=== PATIENT | male | born 1955 | race Caucasian/White ===

== ENCOUNTER 2019-07-22 23:16 | Emergency (ER) | payer MEDICAID, OTHER ==
[~2019-07-22] VITALS: Ht 180.3 cm; Wt 100.0 kg
[~2019-07-22 23:16] MED LIST: AMLO5TAB16 PO; COLC0.6T67 PO; FAMO-128 PO; FINA5TAB11 PO; FLO0.4C PO; INDO50CA96 PO; METO25TA6 PO
[2019-07-23] MEDS ORDERED: ketorolac tromethamine 15mg/ml inj. IV ONE
[2019-07-23] MEDS ORDERED: iohexol 300mg/ml 100ml inj. ONE (00:08)
[2019-07-23 00:30] LABS: BASOPHILS % (AUTO) 0.8 % (0-1); EOSINOPHILS # (AUTO) 0.3 X10'3 (0-0.9); HEMATOCRIT 48.4 % (42.0-52.0); HEMOGLOBIN 16.4 g/dl (14.0-17.9); LYMPHOCYTES # (AUTO) 1.6 X10'3 (1.1-4.8); MEAN CORPUSCULAR HEMOGLOBIN 29.8 PG (27.0-31.0); MEAN CORPUSCULAR HGB CONC 33.8 g/dL (33.0-36.5); MEAN PLATELET VOLUME 8.7 FL (7.4-10.4); MONOCYTES # (AUTO) 0.8 X10'3 (0-0.9); NEUTROPHILS # (AUTO) 3.9 X10'3 (1.8-7.7); NEUTROPHILS % (AUTO) 58.2 % (42-75); PLATELET COUNT 176 X10'3 (140-440); RED CELL DISTRIBUTION WIDTH 16.8 % (11.5-14.5); WHITE BLOOD COUNT 6.6 X10'3 (4.5-11.0)
[2019-07-23 00:42] LABS: ALANINE AMINOTRANSFERASE 26 U/L (12-78); ALBUMIN 3.8 G/DL (3.4-5.0); ALBUMIN/GLOBULIN RATIO 1.1 (1.1-1.5); ALKALINE PHOSPHATASE 70 IU/L (46-116); ANION GAP 9 (8-16); ASPARTATE AMINO TRANSFERASE 18 U/L (10-37); BILIRUBIN,TOTAL 0.5 MG/DL (0.1-1.0); BLOOD UREA NITROGEN 28 MG/DL (7-18); BUN/CREATININE RATIO 16.1 (5.4-32.0); CALCIUM 8.4 MG/DL (8.5-10.1); CHLORIDE 107 MMOL/L (99-107); CREATININE 1.74 MG/DL (0.60-1.10); GLUCOSE 99 MG/DL (70-104); POTASSIUM 3.8 MMOL/L (3.5-5.1); SODIUM 142 MMOL/L (135-145); TOTAL CARBON DIOXIDE 25.6 MMOL/L (24-32); TOTAL PROTEIN 7.2 G/DL (6.4-8.2); eGFR 40 ML/MIN
[2019-07-23 02:06] VITALS: BP 161/100
== END 2019-07-23 02:12 | disposition home or self-care (01) ==
LOC: ER 23:17
DX: K43.9 Ventral hernia without obstruction or gangrene (principal); I10 Essential (primary) hypertension; M10.9 Gout, unspecified; F17.200 Nicotine dependence, unspecified, uncomplicated; Z86.73 Personal history of transient ischemic attack (TIA), and cerebral infarction without residual deficits; Z98.890 Other specified postprocedural states; Z59.0 Homelessness; Z56.0 Unemployment, unspecified; Z88.8 Allergy status to other drugs, medicaments and biological substances; Z79.899 Other long term (current) drug therapy
CPT/HCPCS: 36415; 74176; 80053; 85025; 96374; 99284; J1885; Q9967

== ENCOUNTER 2019-08-14 14:43 | Inpatient (IN) | payer MEDICAID, OTHER ==
[~2019-08-14] VITALS: Ht 177.8 cm; Wt 95.5 kg
[2019-08-14 15:21] LABS: BASOPHILS # (AUTO) 0.1 X10'3 (0-0.2); BASOPHILS % (AUTO) 0.6 % (0-1); EOSINOPHILS # (AUTO) 0.2 X10'3 (0-0.9); EOSINOPHILS % (AUTO) 2.4 % (0-6); HEMATOCRIT 43.3 % (42.0-52.0); HEMOGLOBIN 14.7 g/dl (14.0-17.9); LYMPHOCYTES # (AUTO) 1.4 X10'3 (1.1-4.8); LYMPHOCYTES % (AUTO) 17.6 % (21-51); MEAN CORPUSCULAR HEMOGLOBIN 30.2 PG (27.0-31.0); MEAN CORPUSCULAR VOLUME 88.9 FL (78-98); MEAN PLATELET VOLUME 7.8 FL (7.4-10.4); MONOCYTES # (AUTO) 0.9 X10'3 (0-0.9); MONOCYTES % (AUTO) 10.9 % (2-12); NEUTROPHILS # (AUTO) 5.6 X10'3 (1.8-7.7); NEUTROPHILS % (AUTO) 68.5 % (42-75); PLATELET COUNT 234 X10'3 (140-440); RED BLOOD COUNT 4.88 X10'6 (4.70-6.10); RED CELL DISTRIBUTION WIDTH 16.9 % (11.5-14.5); WHITE BLOOD COUNT 8.1 X10'3 (4.5-11.0)
[2019-08-14 15:32] LABS: PARTIAL THROMBOPLASTIN TIME 30 SECONDS (22-32)
[2019-08-14 15:34] LABS: ALANINE AMINOTRANSFERASE 26 U/L (12-78); ALBUMIN 3.2 G/DL (3.4-5.0); ALBUMIN/GLOBULIN RATIO 0.8 (1.1-1.5); ALKALINE PHOSPHATASE 87 IU/L (46-116); ANION GAP 11 (8-16); ASPARTATE AMINO TRANSFERASE 14 U/L (10-37); BILIRUBIN,TOTAL 0.3 MG/DL (0.1-1.0); BLOOD UREA NITROGEN 21 MG/DL (7-18); BUN/CREATININE RATIO 14.8 (5.4-32.0); CALCIUM 8.4 MG/DL (8.5-10.1); CHLORIDE 103 MMOL/L (99-107); CREATININE 1.42 MG/DL (0.60-1.10); GLUCOSE 106 MG/DL (70-104); POTASSIUM 3.5 MMOL/L (3.5-5.1); SODIUM 139 MMOL/L (135-145); TOTAL PROTEIN 7.4 G/DL (6.4-8.2); eGFR 51 ML/MIN
[2019-08-14 15:37] LABS: TROPONIN I < 0.04 NG/ML (0.0-0.05)
[2019-08-14] MEDS ORDERED: dextrose 50%-water 50ml dispensing syringe IV ONE ×2 (17:34→17:35)
[2019-08-14] MEDS ORDERED: morphine 4 MG/ML inj SYRINge IV ONE (19:05)
[2019-08-14] MEDS ORDERED: ipratropium/albuterol 3ml nebule NEB ONE (19:05)
[2019-08-14] MEDS ORDERED: ondansetron/PF 4mg/2ml inj IV ONE (19:05)
--- NOTE | 2019-08-14 19:10 | NUR ---
dr camilo updated that patient in sever pain to his l hip . 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 states he has been in his wc more lately and thinks maybe this is why. Pt very wheezy and rr 26, o2 on ra 96%. bp 183/120. MD ordering svn, msiv and zofran. acc now 83
--- NOTE | 2019-08-14 19:19 | NUR ---
rt at bedside for svn. pt given msiv 4 mg and zofran 4 mg iv. stroke rn, ever, at bedside. Tele Neuro Cart in front of pt now. Pt reprots this numbness and tingling came on suddenly at 0730 this am and has continued all day and had not worsened or improved. Passed swallow eval, swallowing thin liquids with no issues.
[2019-08-14] MEDS ORDERED: aspirin 325mg tablet PO ONE (19:45)
[2019-08-14] MEDS ORDERED: magnesium 2GM in 50ml NS 50 ML IV PRN (20:05)
[2019-08-14] MEDS ORDERED: magnesium hydroxide 30ml (MOM) UD suspension PO PRN (20:05)
[2019-08-14] MEDS ORDERED: acetaminophen 325mg tablet PO PRN ×2 (20:05)
[2019-08-14] MEDS ORDERED: ondansetron/PF 4mg/2ml inj IV PRN (20:05)
[2019-08-14] MEDS ORDERED: potassium CL 10mEq/100ml bag 100 ML IV PRN ×2 (20:05)
[2019-08-14] MEDS ORDERED: magnesium Cl slow-release 64mg tablet PO PRN (20:05)
[2019-08-14] MEDS ORDERED: magnesium 4gm in 100ml NS 100 ML IV PRN (20:05)
[2019-08-14] MEDS ORDERED: potassium Cl 20 mEq SR tablet PO PRN ×2 (20:05)
[2019-08-14] MEDS ORDERED: NO HOME MEDS (21:02)
--- NOTE | 2019-08-14 21:07 | NUR ---
dr. mcdermott called: 1. pt with severe pain to his left hip, only tylenol ordered, 2. htn continues 189/120. verbal received for msiv 2 mg prn, amoldapinie 5 mg x1 now, hydralazine prn.
[2019-08-14] MEDS ORDERED: amLODIPine 5mg tablet PO ONE (21:15)
[2019-08-14] MEDS ORDERED: hydrALAZINE 20mg/ml inj. IV PRN (21:15)
--- NOTE | 2019-08-14 21:40 | NUR ---
awaiting ipa, given amlodapint 5 mg tab x 1. current pb 177/109. reports the tingling/numbness to the right face continues.
[2019-08-14] MEDS: morphine 2 MG/ML inj. syringe IV PRN (22:32)
[2019-08-14 23:00] VITALS: BP 150/87
[2019-08-14] MEDS ORDERED: HYDROcodone/acetaminophen 5mg/325mg tablet PO PRN (23:50)
--- NOTE | 2019-08-14 23:58 | NUR ---
performed neuro assessment. Noted weakness in L hand application support analyst and patient was barely able to lift either leg off the bed. still c/o tingling and numbness in L side. Addendum: 08/15/19 at 0001 by Joselin Baltazar RN R side numb and tingling. Previous stroke left R side weak. L hand was weaker with biomechanical engineer
[2019-08-15] VITALS (9 sets, daily range): BP systolic 142–167; BP diastolic 84–105
--- NOTE | 2019-08-15 01:03 | NUR ---
No need for an MRI/MRA of brain per physician.
[2019-08-15 03:15] LABS: BASOPHILS # (AUTO) 0.1 X10'3 (0-0.2); BASOPHILS % (AUTO) 0.7 % (0-1); EOSINOPHILS # (AUTO) 0.2 X10'3 (0-0.9); HEMATOCRIT 42.2 % (42.0-52.0); HEMOGLOBIN 14.5 g/dl (14.0-17.9); LYMPHOCYTES # (AUTO) 1.1 X10'3 (1.1-4.8); LYMPHOCYTES % (AUTO) 15.5 % (21-51); MEAN CORPUSCULAR HEMOGLOBIN 30.1 PG (27.0-31.0); MEAN CORPUSCULAR HGB CONC 34.3 g/dL (33.0-36.5); MEAN CORPUSCULAR VOLUME 87.8 FL (78-98); MEAN PLATELET VOLUME 7.8 FL (7.4-10.4); MONOCYTES % (AUTO) 14.4 % (2-12); NEUTROPHILS # (AUTO) 4.8 X10'3 (1.8-7.7); NEUTROPHILS % (AUTO) 66.4 % (42-75); PLATELET COUNT 205 X10'3 (140-440); RED BLOOD COUNT 4.81 X10'6 (4.70-6.10); RED CELL DISTRIBUTION WIDTH 16.5 % (11.5-14.5); WHITE BLOOD COUNT 7.3 X10'3 (4.5-11.0)
[2019-08-15 03:33] LABS: ALBUMIN 2.8 G/DL (3.4-5.0); ANION GAP 8 (8-16); BLOOD UREA NITROGEN 21 MG/DL (7-18); CALCIUM 8.2 MG/DL (8.5-10.1); CHLORIDE 106 MMOL/L (99-107); CHOL/HDL RATIO 3.1 (0.00-4.99); CHOLESTEROL 112 MG/DL (0-200); GLUCOSE 119 MG/DL (70-104); HDL CHOLESTEROL 36 MG/DL (35-60); LDL CHOLESTEROL 66 MG/DL (50-100); MAGNESIUM 1.8 MG/DL (1.5-2.4); POTASSIUM 3.8 MMOL/L (3.5-5.1); SODIUM 141 MMOL/L (135-145); TRIGLYCERIDES 89 MG/DL (20-135); TROPONIN I < 0.04 NG/ML (0.0-0.05); eGFR 47 ML/MIN
[2019-08-15] MEDS: amLODIPine 5mg tablet PO SCH (07:56)
[2019-08-15] MEDS: enoxaparin 40mg/0.4ml syringe SQ SCH (07:56)
[2019-08-15] MEDS: morphine 2 MG/ML inj. syringe IV PRN ×2 (07:58→11:34)
[2019-08-15] MEDS: K and/or MAG REPLACEMENT MC SCH (08:00)
[2019-08-15] MEDS: aspirin 325mg tablet, delayed-release (Ecotrin) PO SCH (08:03)
[2019-08-15] MEDS: atorvastatin 20mg tablet PO SCH (08:03)
--- NOTE | 2019-08-15 16:47 | NUR ---
Malnutrition consult. Per documented weight history patient is at his UBW. He does have bilateral foot non-pitting 2+ mild edema, severe weakness. Patient is on a heart healthy diet, great appetite and eating 100% of meals. No malnutrition at this time. Will continue to follow. Addendum: 08/15/19 at [address] Amended: Links added.
--- NOTE | 2019-08-15 18:15 | NUR ---
Problems reprioritized. Patient report given, questions answered & plan of care reviewed with ENEDINA Chin .
--- NOTE | 2019-08-15 18:30 | NUR ---
Patient in room ORTHO 4007. I have received report from ENEDINA Wood and had the opportunity to ask questions and assume patient care.
[2019-08-15] MEDS: tamsulosin 0.4mg capsule PO SCH (22:01)
[2019-08-16] VITALS (9 sets, daily range): BP systolic 136–170; BP diastolic 77–102
[2019-08-16] MEDS: morphine 2 MG/ML inj. syringe IV PRN ×5 (02:51→21:06)
[2019-08-16 04:22] LABS: COLOR,URINE YELLOW (Yellow); GLUCOSE, URINE NEGATIVE (Neg); KETONES,URINE NEGATIVE (Neg); LEUKOCYTE ESTERASE ,URINE MODERATE (Neg); NITRITES, URINE NEGATIVE (Neg); OCCULT BLOOD,URINE SMALL (Neg); PH,URINE 6.5 (4.8-8.0); PROTEIN,URINE TRACE mg/dl (Neg); UROBILINOGEN,URINE 0.2 E.U/dL (0.2-1.0)
[2019-08-16 04:36] LABS: CLARITY,URINE SLIGHTLY CLOUDY (Clear); UA COLLECTION TYPE NON-SPECIFIED
[2019-08-16 04:38] LABS: BACTERIA,URINE FEW /HPF (Neg); SQUAMOUS EPITHELIAL CELL,UR FEW /LPF (FEW); WBC CLUMPS,URINE FEW /HPF (NEGATIVE)
[2019-08-16 06:27] LABS: ALBUMIN 2.8 G/DL (3.4-5.0); ANION GAP 9 (8-16); BLOOD UREA NITROGEN 20 MG/DL (7-18); BUN/CREATININE RATIO 14.4 (5.4-32.0); CALCIUM 8.4 MG/DL (8.5-10.1); CHLORIDE 104 MMOL/L (99-107); CREATININE 1.39 MG/DL (0.60-1.10); GLUCOSE 102 MG/DL (70-104); MAGNESIUM 1.8 MG/DL (1.5-2.4); POTASSIUM 4.2 MMOL/L (3.5-5.1); SODIUM 140 MMOL/L (135-145); TOTAL CARBON DIOXIDE 27.2 MMOL/L (24-32); eGFR 52 ML/MIN
[2019-08-16 06:31] LABS: BASOPHILS % (AUTO) 0.4 % (0-1); EOSINOPHILS # (AUTO) 0.2 X10'3 (0-0.9); EOSINOPHILS % (AUTO) 2.5 % (0-6); HEMATOCRIT 43.6 % (42.0-52.0); HEMOGLOBIN 14.8 g/dl (14.0-17.9); LYMPHOCYTES % (AUTO) 13.6 % (21-51); MEAN CORPUSCULAR HEMOGLOBIN 30.1 PG (27.0-31.0); MEAN CORPUSCULAR HGB CONC 33.8 g/dL (33.0-36.5); MEAN PLATELET VOLUME 8.4 FL (7.4-10.4); MONOCYTES # (AUTO) 0.9 X10'3 (0-0.9); MONOCYTES % (AUTO) 12.1 % (2-12); NEUTROPHILS # (AUTO) 5.3 X10'3 (1.8-7.7); NEUTROPHILS % (AUTO) 71.4 % (42-75); PLATELET COUNT 209 X10'3 (140-440); RED CELL DISTRIBUTION WIDTH 16.4 % (11.5-14.5); WHITE BLOOD COUNT 7.5 X10'3 (4.5-11.0)
--- NOTE | 2019-08-16 06:33 | NUR ---
Patient in room ORTHO 4007. I have received report from Elsy MCCONNELL and had the opportunity to ask questions and assume patient care.
--- NOTE | 2019-08-16 06:34 | NUR ---
Problems reprioritized. Patient report given, questions answered & plan of care reviewed with ENEDINA Montalvo.
--- NOTE | 2019-08-16 06:36 | NUR ---
Patient in room ORTHO 4007. I have received report from ENEDINA Urrutia and had the opportunity to ask questions and assume patient care.
[2019-08-16] MEDS: aspirin 325mg tablet, delayed-release (Ecotrin) PO SCH (07:46)
[2019-08-16] MEDS: atorvastatin 20mg tablet PO SCH (07:46)
[2019-08-16] MEDS: amLODIPine 5mg tablet PO SCH (07:46)
[2019-08-16] MEDS: enoxaparin 40mg/0.4ml syringe SQ SCH (07:47)
[2019-08-16] MEDS: K and/or MAG REPLACEMENT MC SCH (07:47)
[2019-08-16] MEDS: HYDROcodone/acetaminophen 10/325mg tab PO PRN (10:45)
[2019-08-16] MEDS: mag hydrox/Alum hydrox/simeth 30ml oral suspension PO PRN (10:45)
[2019-08-16] MEDS: allopurinol 100mg tablet PO SCH (13:03)
--- NOTE | 2019-08-16 18:15 | NUR ---
Patient in room ORTHO 4007. I have received report from ENEDINA Montalvo and had the opportunity to ask questions and assume patient care.
--- NOTE | 2019-08-16 18:18 | NUR ---
Problems reprioritized. Patient report given, questions answered & plan of care reviewed with Elsy MCCONNELL.
[2019-08-16] MEDS: tamsulosin 0.4mg capsule PO SCH (19:42)
[2019-08-17] VITALS (7 sets, daily range): BP systolic 138–177; BP diastolic 80–97
[2019-08-17] MEDS: morphine 2 MG/ML inj. syringe IV PRN ×4 (05:17→22:32)
--- NOTE | 2019-08-17 06:10 | NUR ---
Patient in room ORTHO 4007. I have received report from and had the opportunity to ask questions and assume patient care ENEDINA Chin.
[2019-08-17 06:20] LABS: ALBUMIN 2.7 G/DL (3.4-5.0); ANION GAP 6 (8-16); BLOOD UREA NITROGEN 25 MG/DL (7-18); BUN/CREATININE RATIO 19.1 (5.4-32.0); CALCIUM 8.3 MG/DL (8.5-10.1); CHLORIDE 103 MMOL/L (99-107); CREATININE 1.31 MG/DL (0.60-1.10); GLUCOSE 101 MG/DL (70-104); POTASSIUM 4.4 MMOL/L (3.5-5.1); SODIUM 138 MMOL/L (135-145); TOTAL CARBON DIOXIDE 28.6 MMOL/L (24-32); eGFR 55 ML/MIN
--- NOTE | 2019-08-17 06:42 | NUR ---
Problems reprioritized. Patient report given, questions answered & plan of care reviewed with ENEDINA Montgomery.
[2019-08-17 06:45] LABS: BASOPHILS % (AUTO) 0.4 % (0-1); EOSINOPHILS # (AUTO) 0.2 X10'3 (0-0.9); EOSINOPHILS % (AUTO) 2.8 % (0-6); HEMATOCRIT 41.2 % (42.0-52.0); HEMOGLOBIN 14.1 g/dl (14.0-17.9); LYMPHOCYTES % (AUTO) 15.5 % (21-51); MEAN CORPUSCULAR HEMOGLOBIN 30.6 PG (27.0-31.0); MEAN CORPUSCULAR HGB CONC 34.2 g/dL (33.0-36.5); MEAN CORPUSCULAR VOLUME 89.3 FL (78-98); MEAN PLATELET VOLUME 8.6 FL (7.4-10.4); MONOCYTES # (AUTO) 0.8 X10'3 (0-0.9); MONOCYTES % (AUTO) 11.9 % (2-12); NEUTROPHILS # (AUTO) 4.5 X10'3 (1.8-7.7); NEUTROPHILS % (AUTO) 69.4 % (42-75); PLATELET COUNT 223 X10'3 (140-440); RED BLOOD COUNT 4.61 X10'6 (4.70-6.10); RED CELL DISTRIBUTION WIDTH 16.7 % (11.5-14.5); WHITE BLOOD COUNT 6.4 X10'3 (4.5-11.0)
[2019-08-17] MEDS: K and/or MAG REPLACEMENT MC SCH (08:00)
[2019-08-17] MEDS: atorvastatin 20mg tablet PO SCH (08:17)
[2019-08-17] MEDS: allopurinol 100mg tablet PO SCH (08:17)
[2019-08-17] MEDS: amLODIPine 5mg tablet PO SCH (08:17)
[2019-08-17] MEDS: aspirin 325mg tablet, delayed-release (Ecotrin) PO SCH (08:17)
[2019-08-17] MEDS: enoxaparin 40mg/0.4ml syringe SQ SCH (08:18)
[2019-08-17] MEDS ORDERED: allopurinol 100mg tablet PO SCH (08:30)
[2019-08-17] MEDS ORDERED: ATOR20TA66 PO (11:16)
[2019-08-17] MEDS ORDERED: NOR5T PO (11:16)
[2019-08-17] MEDS ORDERED: tamsulosin capsule PO (11:16)
[2019-08-17] MEDS ORDERED: ASPI81TA52 PO (11:16)
--- NOTE | 2019-08-17 14:08 | NUR ---
Dr Andres page: PAGER ID: [phone] MESSAGE: [phone] Everette Whitten: pt unable to stand or transfer bed to or WC to toilet/bed. x2 person mid-max assist, intolerable pain. unsafe DC. please advise. Valentina [phone]
--- NOTE | 2019-08-17 18:00 | NUR ---
Problems reprioritized. Patient report given, questions answered & plan of care reviewed with ENEDINA Rodriguez.
[2019-08-17] MEDS: tamsulosin 0.4mg capsule PO SCH (20:28)
[2019-08-17] MEDS: HYDROcodone/acetaminophen 10/325mg tab PO PRN (20:30)
[2019-08-17] MEDS: mag hydrox/Alum hydrox/simeth 30ml oral suspension PO PRN (22:32)
[2019-08-18] VITALS (7 sets, daily range): BP systolic 145–161; BP diastolic 84–99
[2019-08-18] MEDS: morphine 2 MG/ML inj. syringe IV PRN ×3 (04:01→19:00)
--- NOTE | 2019-08-18 04:06 | NUR ---
Pt lung sounds are sonorous, slightly wheezing. The pt will not participate in DB&C. Educated him on need to cough to clear lungs to discourage pneumonia. Pt stated, " I hope I do get pneumonia so I can and end this." Pt is scheduled for [employer] this am. Pt is lying flat and snoring, was lying on left side earlier. Pt is long time smoker and states that he quit smoking about 7 days ago. lung sounds are r/t possible smoker cough?
--- NOTE | 2019-08-18 06:15 | NUR ---
Patient in room ORTHO 4007. I have received report from and had the opportunity to ask questions and assume patient care ENEDINA Rodriguez.
--- NOTE | 2019-08-18 06:24 | NUR ---
report given to rowdy Montgomery.
[2019-08-18 06:27] LABS: BASOPHILS % (AUTO) 0.5 % (0-1); EOSINOPHILS # (AUTO) 0.2 X10'3 (0-0.9); EOSINOPHILS % (AUTO) 2.9 % (0-6); HEMOGLOBIN 13.7 g/dl (14.0-17.9); LYMPHOCYTES % (AUTO) 14.8 % (21-51); MEAN CORPUSCULAR HEMOGLOBIN 30.1 PG (27.0-31.0); MEAN CORPUSCULAR HGB CONC 34.2 g/dL (33.0-36.5); MEAN PLATELET VOLUME 8.4 FL (7.4-10.4); MONOCYTES % (AUTO) 14.7 % (2-12); NEUTROPHILS # (AUTO) 4.7 X10'3 (1.8-7.7); NEUTROPHILS % (AUTO) 67.1 % (42-75); PLATELET COUNT 227 X10'3 (140-440); RED BLOOD COUNT 4.55 X10'6 (4.70-6.10); RED CELL DISTRIBUTION WIDTH 16.5 % (11.5-14.5)
[2019-08-18 06:31] LABS: ALBUMIN 2.6 G/DL (3.4-5.0); ANION GAP 7 (8-16); BLOOD UREA NITROGEN 22 MG/DL (7-18); BUN/CREATININE RATIO 15.3 (5.4-32.0); CALCIUM 9.2 MG/DL (8.5-10.1); CHLORIDE 102 MMOL/L (99-107); CREATININE 1.44 MG/DL (0.60-1.10); GLUCOSE 107 MG/DL (70-104); MAGNESIUM 2.1 MG/DL (1.5-2.4); POTASSIUM 4.1 MMOL/L (3.5-5.1); SODIUM 136 MMOL/L (135-145); TOTAL CARBON DIOXIDE 27.4 MMOL/L (24-32); eGFR 50 ML/MIN
[2019-08-18] MEDS: K and/or MAG REPLACEMENT MC SCH (08:00)
[2019-08-18] MEDS: aspirin 325mg tablet, delayed-release (Ecotrin) PO SCH (08:00)
[2019-08-18] MEDS: amLODIPine 5mg tablet PO SCH (09:09)
[2019-08-18] MEDS: atorvastatin 20mg tablet PO SCH (09:09)
[2019-08-18] MEDS: allopurinol 100mg tablet PO SCH (09:10)
[2019-08-18] MEDS: enoxaparin 40mg/0.4ml syringe SQ SCH (09:14)
--- NOTE | 2019-08-18 12:21 | NUR ---
Student Medication Administration:For this medication-pass time frame [id number], all medications were reviewed, administered and documented per hospital policy by Stormy Marie. Student documentation:I have reviewed and agree with all interventions, assessments performed and documented by Stormy Marie.
--- NOTE | 2019-08-18 14:21 | NUR ---
Dr Andres: PAGER ID: [phone] MESSAGE: [phone] Everette Whitten: Used walker to transfer WC to bed, states will not DC until tomorrow at 0900, because he needs rest. requests a walker & Percocet order at DC. Lynn does not relieve pain. Valentina 1945
--- NOTE | 2019-08-18 18:27 | NUR ---
Problems reprioritized. Patient report given, questions answered & plan of care reviewed with ENEDINA Mae.
[2019-08-18] MEDS: tamsulosin 0.4mg capsule PO SCH (19:59)
[2019-08-19 06:00] VITALS: BP 146/92
[2019-08-19 06:05] LABS: BASOPHILS % (AUTO) 0.6 % (0-1); EOSINOPHILS # (AUTO) 0.2 X10'3 (0-0.9); HEMATOCRIT 41.9 % (42.0-52.0); HEMOGLOBIN 14.3 g/dl (14.0-17.9); LYMPHOCYTES % (AUTO) 14.2 % (21-51); MEAN CORPUSCULAR HGB CONC 34.1 g/dL (33.0-36.5); MEAN PLATELET VOLUME 8.4 FL (7.4-10.4); MONOCYTES % (AUTO) 13.9 % (2-12); NEUTROPHILS # (AUTO) 4.7 X10'3 (1.8-7.7); NEUTROPHILS % (AUTO) 68.3 % (42-75); PLATELET COUNT 247 X10'3 (140-440); RED BLOOD COUNT 4.76 X10'6 (4.70-6.10); RED CELL DISTRIBUTION WIDTH 16.5 % (11.5-14.5); WHITE BLOOD COUNT 6.8 X10'3 (4.5-11.0)
[2019-08-19 06:11] LABS: ALBUMIN 2.8 G/DL (3.4-5.0); ANION GAP 7 (8-16); BLOOD UREA NITROGEN 25 MG/DL (7-18); BUN/CREATININE RATIO 17.5 (5.4-32.0); CALCIUM 8.6 MG/DL (8.5-10.1); CHLORIDE 104 MMOL/L (99-107); CREATININE 1.43 MG/DL (0.60-1.10); GLUCOSE 103 MG/DL (70-104); POTASSIUM 4.4 MMOL/L (3.5-5.1); SODIUM 139 MMOL/L (135-145); TOTAL CARBON DIOXIDE 28.3 MMOL/L (24-32); eGFR 50 ML/MIN
--- NOTE | 2019-08-19 06:13 | NUR ---
Patient in room ORTHO 4007. I have received report from and had the opportunity to ask questions and assume patient care ENEDINA Mae.
[2019-08-19] MEDS: atorvastatin 20mg tablet PO SCH (08:31)
[2019-08-19] MEDS: morphine 2 MG/ML inj. syringe IV PRN (08:32)
[2019-08-19] MEDS: aspirin 325mg tablet, delayed-release (Ecotrin) PO SCH (08:32)
[2019-08-19] MEDS: amLODIPine 5mg tablet PO SCH (08:32)
[2019-08-19] MEDS: allopurinol 100mg tablet PO SCH (08:32)
[2019-08-19] MEDS: enoxaparin 40mg/0.4ml syringe SQ SCH (08:33)
[2019-08-19 10:00] VITALS: BP 166/91
--- NOTE | 2019-08-19 14:00 | NUR ---
DISCHARGE: VSS, pt given shower, clothing, sack lunch (homeless), snacks. pt DC to [facility]/will p-up Rx in [facility]/[place], called in. All necessary DC documents signed, recap of pt stay given to pt. pt escorted NELLIE via personal motorized WC by [facility] volunteer to L[facility]. pt taking himself to [facility] to operations supervisor perscriptions.
== END 2019-08-19 10:40 | disposition short-term general hospital (02) | DRG 58 ==
LOC: ER 14:44 → ED HOLD 20:31 → ORTHO 4S 22:45
PROVIDERS: ADMIT Hospitalist; ATTEND Family Medicine
DX: R29.810 Facial weakness (principal); N18.3 Chronic kidney disease, stage 3 (moderate); I69.351 Hemiplegia and hemiparesis following cerebral infarction affecting right dominant side; M10.9 Gout, unspecified; M25.552 Pain in left hip; I12.9 Hypertensive chronic kidney disease with stage 1 through stage 4 chronic kidney disease, or unspecified chronic kidney disease; G89.4 Chronic pain syndrome; N40.0 Benign prostatic hyperplasia without lower urinary tract symptoms; Z59.0 Homelessness; Z87.891 Personal history of nicotine dependence; Z91.14 Patient's other noncompliance with medication regimen; Z88.8 Allergy status to other drugs, medicaments and biological substances; Z91.030 Bee allergy status; Z79.899 Other long term (current) drug therapy
CPT/HCPCS: 36415; 70450; 70544; 70551; 71045; 72192; 73501; 80048; 80053; 80061; 81001; 82948; 83735; 83880; 84484; 85025; 85610; 85730; 87081; 87088; 93005; 93306; 93880; 94640; 94760; 96374; 96375; 97110; 97116; 97163; 97530; 99285; G0378; J0360; J1650; J2270; J2405

== ENCOUNTER 2019-09-03 20:22 | Emergency (ER) | payer MEDICAID ==
[~2019-09-03] VITALS: Ht 177.8 cm; Wt 95.5 kg
[~2019-09-03 20:22] MED LIST changes: -AMLO5TAB16 PO; +ASPI81TA52 PO; +ATOR20TA66 PO; -COLC0.6T67 PO; -FAMO-128 PO; -FINA5TAB11 PO; -FLO0.4C PO; -INDO50CA96 PO; -METO25TA6 PO; +NOR5T PO; +tamsulosin capsule PO
[2019-09-03] MEDS ORDERED: ketorolac trometh. 30mg/ml inj. IM ONE (21:15)
--- NOTE | 2019-09-03 21:34 | NUR ---
PT HAVING BLOOD DRAW NOW. JUST GIVEN TORADOL 30 MG IM. PT IS POLITE AND COOPERATIVE BUT REPORTS HIS AINI IS SEVERE 9 OUT OF 10 AND CONSTANT TO BOTH LEGS.
[2019-09-03 21:54] LABS: BASOPHILS # (AUTO) 0.1 X10'3 (0-0.2); BASOPHILS % (AUTO) 0.5 % (0-1); EOSINOPHILS # (AUTO) 0.2 X10'3 (0-0.9); EOSINOPHILS % (AUTO) 2.1 % (0-6); HEMATOCRIT 40.6 % (42.0-52.0); HEMOGLOBIN 13.7 g/dl (14.0-17.9); LYMPHOCYTES # (AUTO) 0.9 X10'3 (1.1-4.8); LYMPHOCYTES % (AUTO) 9.2 % (21-51); MEAN CORPUSCULAR HEMOGLOBIN 29.9 PG (27.0-31.0); MEAN CORPUSCULAR HGB CONC 33.8 g/dL (33.0-36.5); MEAN CORPUSCULAR VOLUME 88.3 FL (78-98); MEAN PLATELET VOLUME 8.1 FL (7.4-10.4); MONOCYTES # (AUTO) 1.4 X10'3 (0-0.9); MONOCYTES % (AUTO) 14.3 % (2-12); NEUTROPHILS # (AUTO) 7.4 X10'3 (1.8-7.7); NEUTROPHILS % (AUTO) 73.9 % (42-75); PLATELET COUNT 242 X10'3 (140-440); RED CELL DISTRIBUTION WIDTH 16.4 % (11.5-14.5)
[2019-09-03 22:03] LABS: CLARITY,URINE SLIGHTLY CLOUDY (Clear); COLOR,URINE YELLOW (Yellow); GLUCOSE, URINE NEGATIVE (Neg); KETONES,URINE NEGATIVE (Neg); LEUKOCYTE ESTERASE ,URINE NEGATIVE (Neg); NITRITES, URINE NEGATIVE (Neg); OCCULT BLOOD,URINE SMALL (Neg); PROTEIN,URINE 100 mg/dl (Neg); UROBILINOGEN,URINE 0.2 E.U/dL (0.2-1.0)
[2019-09-03 22:07] LABS: ALANINE AMINOTRANSFERASE 16 U/L (12-78); ALBUMIN 2.7 G/DL (3.4-5.0); ALBUMIN/GLOBULIN RATIO 0.6 (1.1-1.5); ALKALINE PHOSPHATASE 76 IU/L (46-116); ANION GAP 10 (8-16); ASPARTATE AMINO TRANSFERASE 19 U/L (10-37); BILIRUBIN,TOTAL 0.5 MG/DL (0.1-1.0); BLOOD UREA NITROGEN 19 MG/DL (7-18); BUN/CREATININE RATIO 12.8 (5.4-32.0); CALCIUM 8.5 MG/DL (8.5-10.1); CHLORIDE 102 MMOL/L (99-107); CREATININE 1.48 MG/DL (0.60-1.10); GLUCOSE 119 MG/DL (70-104); POTASSIUM 3.8 MMOL/L (3.5-5.1); SODIUM 138 MMOL/L (135-145); TOTAL CARBON DIOXIDE 26.5 MMOL/L (24-32); TOTAL PROTEIN 6.9 G/DL (6.4-8.2); eGFR 48 ML/MIN
--- NOTE | 2019-09-03 22:17 | NUR ---
PT SLEEPING, IN NAD. NO OBVIOUS S/SX OF PAIN OR DISCOMFORT. WILL CONTINUE TO MONITOR.
[2019-09-03 22:21] LABS: UA COLLECTION TYPE STRAIGHT CATH
[2019-09-03 22:22] LABS: RBC,URINE 0-2 /HPF (0-2); SQUAMOUS EPITHELIAL CELL,UR FEW /LPF (FEW); WBC,URINE 0-4 /HPF (0-4)
[2019-09-03 22:23] LABS: BACTERIA,URINE NONE SEEN /HPF (Neg)
[2019-09-03] MEDS ORDERED: CELE-193 PO (22:42)
[2019-09-03] MEDS ORDERED: ACET-3068 PO (22:42)
--- NOTE | 2019-09-03 23:00 | NUR ---
Attempted to gait test Pt. Pt able to stand but made no effort to ambulate. Pt states he gets around in a wheelchair, but [facility] and there is no way to get it to the hospital.
--- NOTE | 2019-09-04 00:05 | NUR ---
Pt refusing to get OOB to attempt ambulation so that he can be discharged. Explained to Dr. Carrillo and press tender star signal. Pt is homeless and staying at [facility]. Pt has no help available to get back to [facility] and to his wheelchair. Pt to remain in ED for adoption social worker to follow up in the morning per Dr. Carrillo.
--- NOTE | 2019-09-04 00:29 | NUR ---
PT CONTINUES TO SLEEP, NO OBVIOUS S/SX OF PAIN OR DISCOMFORT. NO C/O PAIN HAVE BEEN MADE BY PT.
[2019-09-04 02:01] VITALS: BP 170/100
--- NOTE | 2019-09-04 02:18 | NUR ---
Contacted [facility] who state they have his wheelchair and are willing to assist him into it if we get him a cab ride there. Patient states that he is ready to go. Patient is assisted with new clothing and then as he is assisted into the cab states that he, "can't do it right now. I'll be able to do it in the morning." front end loader driver began to feel uncomofortable transporting the patient and refuses to drive him. Patient returned to room 14 via wheelchair.
--- NOTE | 2019-09-04 02:40 | NUR ---
Dr. Carrillo updated on attempt to d/c Pt after Pt stated he was aggreeable to d/c back to [facility]. Pt was unwilling to cooperate when attempting to get Pt into cab. Pt to wait in ED for social service consult to see if any resources can be obtained for Pt.
--- NOTE | 2019-09-04 02:50 | NUR ---
Pt moved to ED #12. Pt has been medically cleared by ED MD and is discharge ready from a medical standpoint. Orders entered for pediatric social worker consult.
--- NOTE | 2019-09-04 03:42 | NUR ---
Pt observed sitting in wheelchair in NAD. Respirations even and non labored. Pt has made no c/o pain.
--- NOTE | 2019-09-04 05:24 | NUR ---
Social Service consult order faxed over to office by chassis engineerENEDINA Corona.
--- NOTE | 2019-09-04 05:53 | NUR ---
Pt remains sleeping in wheelchair in NAD, respirations even and non labored. Pt has been sleeping in chair since being moved to room and has had no complaints of pain.
--- NOTE | 2019-09-04 08:25 | NUR ---
Pt was able to stand up without assist and get his self up onto gurney without assistance as well.
--- NOTE | 2019-09-04 08:35 | NUR ---
Spoke with Kesha from social work case manager. bushel worker to come and speak with pt in approx 20-30min.
== END 2019-09-04 10:16 | disposition home or self-care (01) ==
LOC: ER 20:22
DX: G89.29 Other chronic pain (principal); M25.561 Pain in right knee; M25.562 Pain in left knee; I10 Essential (primary) hypertension; M10.9 Gout, unspecified; F17.200 Nicotine dependence, unspecified, uncomplicated; F12.90 Cannabis use, unspecified, uncomplicated; F10.99 Alcohol use, unspecified with unspecified alcohol-induced disorder; Z86.73 Personal history of transient ischemic attack (TIA), and cerebral infarction without residual deficits; Z98.890 Other specified postprocedural states; Z56.0 Unemployment, unspecified; Z59.0 Homelessness; Z88.8 Allergy status to other drugs, medicaments and biological substances; Z91.030 Bee allergy status; Z79.82 Long term (current) use of aspirin; Z79.899 Other long term (current) drug therapy; Y90.9 Presence of alcohol in blood, level not specified
CPT/HCPCS: 36415; 80053; 81001; 85025; 96372; 99283; J1885

== ENCOUNTER 2019-09-13 00:25 | Inpatient (IN) | payer MEDICAID ==
[~2019-09-13] VITALS: Ht 177.8 cm; Wt 95.0 kg
[~2019-09-13 00:25] MED LIST changes: +ACET-3068 PO; +CELE-193 PO
[2019-09-13 01:37] LABS: CLARITY,URINE CLOUDY (Clear); COLOR,URINE YELLOW (Yellow); GLUCOSE, URINE NEGATIVE (Neg); KETONES,URINE NEGATIVE (Neg); LEUKOCYTE ESTERASE ,URINE LARGE (Neg); NITRITES, URINE NEGATIVE (Neg); OCCULT BLOOD,URINE MODERATE (Neg); PH,URINE 7.5 (4.8-8.0); PROTEIN,URINE 30 mg/dl (Neg); UROBILINOGEN,URINE 0.2 E.U/dL (0.2-1.0)
[2019-09-13 01:40] LABS: UA COLLECTION TYPE URINAL
[2019-09-13] MEDS ORDERED: morphine 4 MG/ML inj SYRINge IV ONE (01:45)
[2019-09-13 01:48] LABS: ALANINE AMINOTRANSFERASE 16 U/L (12-78); ALBUMIN 2.8 G/DL (3.4-5.0); ALBUMIN/GLOBULIN RATIO 0.7 (1.1-1.5); ALKALINE PHOSPHATASE 77 IU/L (46-116); ANION GAP 8 (8-16); ASPARTATE AMINO TRANSFERASE 22 U/L (10-37); BILIRUBIN,TOTAL 0.6 MG/DL (0.1-1.0); BLOOD UREA NITROGEN 12 MG/DL (7-18); BUN/CREATININE RATIO 8.5 (5.4-32.0); CALCIUM 8.5 MG/DL (8.5-10.1); CHLORIDE 100 MMOL/L (99-107); CREATININE 1.42 MG/DL (0.60-1.10); GLUCOSE 120 MG/DL (70-104); POTASSIUM 4.3 MMOL/L (3.5-5.1); SODIUM 137 MMOL/L (135-145); TOTAL CARBON DIOXIDE 29.2 MMOL/L (24-32); eGFR 51 ML/MIN
[2019-09-13 01:54] LABS: BASOPHILS # (AUTO) 0.1 X10'3 (0-0.2); BASOPHILS % (AUTO) 0.6 % (0-1); EOSINOPHILS # (AUTO) 0.2 X10'3 (0-0.9); EOSINOPHILS % (AUTO) 1.9 % (0-6); HEMATOCRIT 40.3 % (42.0-52.0); HEMOGLOBIN 13.6 g/dl (14.0-17.9); LYMPHOCYTES # (AUTO) 0.7 X10'3 (1.1-4.8); LYMPHOCYTES % (AUTO) 8.3 % (21-51); MEAN CORPUSCULAR HEMOGLOBIN 29.4 PG (27.0-31.0); MEAN CORPUSCULAR HGB CONC 33.9 g/dL (33.0-36.5); MEAN CORPUSCULAR VOLUME 86.9 FL (78-98); MEAN PLATELET VOLUME 7.6 FL (7.4-10.4); MONOCYTES # (AUTO) 1.1 X10'3 (0-0.9); MONOCYTES % (AUTO) 12.9 % (2-12); NEUTROPHILS # (AUTO) 6.7 X10'3 (1.8-7.7); NEUTROPHILS % (AUTO) 76.3 % (42-75); PLATELET COUNT 265 X10'3 (140-440); RED BLOOD COUNT 4.63 X10'6 (4.70-6.10); RED CELL DISTRIBUTION WIDTH 16.1 % (11.5-14.5); WHITE BLOOD COUNT 8.8 X10'3 (4.5-11.0)
[2019-09-13 01:57] LABS: MAGNESIUM 1.6 MG/DL (1.5-2.4)
[2019-09-13 02:11] LABS: PARTIAL THROMBOPLASTIN TIME 29 SECONDS (22-32)
[2019-09-13 02:13] LABS: BACTERIA,URINE 2+ /HPF (Neg); MUCUS STRANDS FEW /LPF (Neg); SQUAMOUS EPITHELIAL CELL,UR MODERATE /LPF (FEW); WBC CLUMPS,URINE MODERATE /HPF (NEGATIVE); WBC,URINE TNTC /HPF (0-4)
[2019-09-13] MEDS ORDERED: CefTRIAXone 2gm/D5W 50ml 50 ML IV ONE (02:15)
[2019-09-13] MEDS ORDERED: SULF1TAB49 PO (03:03)
--- NOTE | 2019-09-13 03:20 | NUR ---
notified that pt SBP 233. ordered 10 mg labetalol IV. BP re ran before administration and SBP 139.
[2019-09-13] MEDS ORDERED: potassium CL 10mEq/100ml bag 100 ML IV PRN ×2 (04:15)
[2019-09-13] MEDS ORDERED: ondansetron/PF 4mg/2ml inj IV PRN (04:15)
[2019-09-13] MEDS ORDERED: potassium Cl 20 mEq SR tablet PO PRN ×2 (04:15)
[2019-09-13] MEDS ORDERED: magnesium 4gm in 100ml NS 100 ML IV PRN (04:15)
[2019-09-13] MEDS ORDERED: normal saline 1000ml 1,000 ML IV ONE (04:15)
[2019-09-13] MEDS ORDERED: acetaminophen 325mg tablet PO PRN ×2 (04:15)
[2019-09-13] MEDS ORDERED: magnesium 2GM in 50ml NS 50 ML IV PRN (04:15)
[2019-09-13] MEDS ORDERED: magnesium hydroxide 30ml (MOM) UD suspension PO PRN (04:15)
[2019-09-13] MEDS ORDERED: magnesium Cl slow-release 64mg tablet PO PRN (04:15)
[2019-09-13] MEDS ORDERED: mag hydrox/Alum hydrox/simeth 30ml oral suspension PO PRN (04:15)
[2019-09-13] MEDS ORDERED: piperacillin/tazo 4.5gm/100ml 100 ML IV ONE (04:35)
--- NOTE | 2019-09-13 05:02 | NUR ---
CONTACTED DR FRIEDMAN NOTIFIED HIM OF PT MDRO STATUS AND THAT PREVIOUSLY URINE BACTERIA RESISTANT TO ROCEPHIN ORDER OBTAINED TO STOP ROCEPHIN AND START ZOSYN
--- NOTE | 2019-09-13 05:27 | NUR ---
[facility]OID SPREAD OF CONTAMINATION.
[2019-09-13 06:10] VITALS: BP 160/113
[2019-09-13] MEDS ORDERED: amLODIPine 5mg tablet PO ONE (06:10)
--- NOTE | 2019-09-13 06:10 | NUR ---
pt arrived to unit, transfered self to bed. VSS, in no apparent distress, urinated 150mL out. will continue to monitor
--- NOTE | 2019-09-13 06:15 | NUR ---
Patient in room CLIFF 352. I have received report from ENEDINA Bernard and had the opportunity to ask questions and assume patient care.
--- NOTE | 2019-09-13 06:22 | NUR ---
report given to ENEDINA Morgan
--- NOTE | 2019-09-13 06:23 | NUR ---
NEW PLAN FOR PT MOTORIZED WHEELCHAIR. CHAIR CLEANED W/ DISINFECTING WIPES AND TAKEN TO SURGICAL TO BE KEPT IN PT ROOM COVERED IN PLASTIC. PT WALLET FOUND IN SEAT OF WHEELCHAIR AND ALSO BAGGED AND TAKEN TO PT ROOM.
[2019-09-13] MEDS: aspirin 81mg tablet.DR PO SCH (07:28)
[2019-09-13] MEDS: enoxaparin 40mg/0.4ml syringe SQ SCH (07:29)
[2019-09-13] MEDS: K and/or MAG REPLACEMENT MC SCH (07:45)
[2019-09-13] MEDS ORDERED: metoprolol tartrate 25mg tablet PO SCH (08:00)
[2019-09-13] MEDS: MEROPENEM 1GM/NS 50ML IVPB 50 ML IV SCH ×2 (08:15→16:25)
[2019-09-13 09:06] LABS: BASOPHILS % (AUTO) 0.6 % (0-1); EOSINOPHILS # (AUTO) 0.2 X10'3 (0-0.9); EOSINOPHILS % (AUTO) 2.9 % (0-6); HEMATOCRIT 41.4 % (42.0-52.0); LYMPHOCYTES # (AUTO) 1.1 X10'3 (1.1-4.8); LYMPHOCYTES % (AUTO) 15.5 % (21-51); MEAN CORPUSCULAR HEMOGLOBIN 29.9 PG (27.0-31.0); MEAN CORPUSCULAR HGB CONC 33.9 g/dL (33.0-36.5); MEAN PLATELET VOLUME 7.8 FL (7.4-10.4); MONOCYTES # (AUTO) 1.3 X10'3 (0-0.9); MONOCYTES % (AUTO) 18.3 % (2-12); NEUTROPHILS # (AUTO) 4.5 X10'3 (1.8-7.7); NEUTROPHILS % (AUTO) 62.7 % (42-75); PLATELET COUNT 218 X10'3 (140-440); RED CELL DISTRIBUTION WIDTH 16.1 % (11.5-14.5); WHITE BLOOD COUNT 7.1 X10'3 (4.5-11.0)
[2019-09-13 09:16] LABS: ALBUMIN 2.6 G/DL (3.4-5.0); ANION GAP 9 (8-16); BLOOD UREA NITROGEN 12 MG/DL (7-18); BUN/CREATININE RATIO 8.4 (5.4-32.0); CALCIUM 8.7 MG/DL (8.5-10.1); CHLORIDE 103 MMOL/L (99-107); CREATININE 1.43 MG/DL (0.60-1.10); GLUCOSE 94 MG/DL (70-104); POTASSIUM 3.8 MMOL/L (3.5-5.1); SODIUM 141 MMOL/L (135-145); TOTAL CARBON DIOXIDE 29.3 MMOL/L (24-32); eGFR 50 ML/MIN
[2019-09-13 09:26] LABS: TOTAL CELLS COUNTED 100
[2019-09-13 09:27] LABS: ANISOCYTOSIS 1+; LARGE PLATELETS FEW; PLATELET ESTIMATE NORMAL; POLYCHROMASIA FEW
[2019-09-13] MEDS ORDERED: NO HOME MEDS (09:31)
[2019-09-13 11:00] VITALS: BP 163/105
--- NOTE | 2019-09-13 12:31 | NUR ---
Dr Valenzuela notified BP remains elevated.
[2019-09-13] MEDS ORDERED: piperacillin/tazo 4.5gm/100ml 100 ML IV SCH (13:00)
[2019-09-13 18:00] VITALS: BP 165/120
--- NOTE | 2019-09-13 18:40 | NUR ---
Problems reprioritized. Patient report given, questions answered & plan of care reviewed with ENEDINA Bernard.
--- NOTE | 2019-09-13 18:53 | NUR ---
REPORT RECEIVED FROM ENEDINA YBARRA
[2019-09-13] MEDS: furosemide 20 MG/2 ML vial IV SCH (19:34)
[2019-09-13] MEDS: losartan 50mg tablet PO SCH (19:34)
[2019-09-13] MEDS: lactobacillus rhamnosus 10,000 MMU CELLS/CAPSULE PO SCH (19:34)
[2019-09-13 21:00] VITALS: BP 159/94
[2019-09-13] MEDS: metoprolol tartrate 25mg tablet PO SCH (21:49)
[2019-09-14] VITALS: BP 142/95
[2019-09-14] MEDS: MEROPENEM 1GM/NS 50ML IVPB 50 ML IV SCH ×3 (00:38→15:25)
--- NOTE | 2019-09-14 06:20 | NUR ---
Patient in room CLIFF 352. I have received report from ENEDINA Bernard and had the opportunity to ask questions and assume patient care.
--- NOTE | 2019-09-14 06:22 | NUR ---
report given to ENEDINA Morgan
[2019-09-14 06:27] LABS: BASOPHILS % (AUTO) 0.7 % (0-1); EOSINOPHILS # (AUTO) 0.3 X10'3 (0-0.9); EOSINOPHILS % (AUTO) 3.8 % (0-6); HEMATOCRIT 39.8 % (42.0-52.0); HEMOGLOBIN 13.5 g/dl (14.0-17.9); LYMPHOCYTES # (AUTO) 0.9 X10'3 (1.1-4.8); MEAN CORPUSCULAR HEMOGLOBIN 29.5 PG (27.0-31.0); MEAN CORPUSCULAR VOLUME 86.7 FL (78-98); MEAN PLATELET VOLUME 7.7 FL (7.4-10.4); MONOCYTES # (AUTO) 0.7 X10'3 (0-0.9); MONOCYTES % (AUTO) 10.3 % (2-12); NEUTROPHILS # (AUTO) 5.1 X10'3 (1.8-7.7); NEUTROPHILS % (AUTO) 72.2 % (42-75); PLATELET COUNT 279 X10'3 (140-440); RED BLOOD COUNT 4.59 X10'6 (4.70-6.10); RED CELL DISTRIBUTION WIDTH 15.9 % (11.5-14.5); WHITE BLOOD COUNT 7.1 X10'3 (4.5-11.0)
[2019-09-14 06:30] VITALS: BP 161/93
[2019-09-14 06:32] LABS: ALBUMIN 2.7 G/DL (3.4-5.0); ANION GAP 9 (8-16); BLOOD UREA NITROGEN 14 MG/DL (7-18); BUN/CREATININE RATIO 10.1 (5.4-32.0); CALCIUM 8.8 MG/DL (8.5-10.1); CHLORIDE 102 MMOL/L (99-107); CREATININE 1.39 MG/DL (0.60-1.10); GLUCOSE 93 MG/DL (70-104); MAGNESIUM 1.8 MG/DL (1.5-2.4); SODIUM 140 MMOL/L (135-145); TOTAL CARBON DIOXIDE 29.2 MMOL/L (24-32); eGFR 52 ML/MIN
[2019-09-14] MEDS: K and/or MAG REPLACEMENT MC SCH (06:42)
[2019-09-14] MEDS: amLODIPine 5mg tablet PO SCH (07:57)
[2019-09-14] MEDS: losartan 50mg tablet PO SCH (07:57)
[2019-09-14] MEDS: metoprolol tartrate 25mg tablet PO SCH ×2 (07:57→19:57)
[2019-09-14] MEDS: lactobacillus rhamnosus 10,000 MMU CELLS/CAPSULE PO SCH ×2 (07:58→19:57)
[2019-09-14] MEDS: enoxaparin 40mg/0.4ml syringe SQ SCH (07:58)
[2019-09-14] MEDS: aspirin 81mg tablet.DR PO SCH (07:58)
[2019-09-14] MEDS: furosemide 20 MG/2 ML vial IV SCH ×2 (07:58→20:00)
[2019-09-14] MEDS ORDERED: CefTRIAXone 2gm/D5W 50ml 50 ML IV SCH (08:00)
[2019-09-14 11:00] VITALS: BP 137/88
[2019-09-14] MEDS: phenazopyridine 100mg tablet PO SCH ×2 (12:24→18:19)
[2019-09-14 18:00] VITALS: BP 161/91
--- NOTE | 2019-09-14 18:20 | NUR ---
Problems reprioritized. Patient report given, questions answered & plan of care reviewed with ENEDINA Bernard.
--- NOTE | 2019-09-14 18:57 | NUR ---
Report received from ENEDINA Morgan
[2019-09-15] VITALS: BP 130/78
[2019-09-15] MEDS: acetaminophen w/codeine (30MG) #3 tablet PO PRN ×2 (00:44→19:03)
--- NOTE | 2019-09-15 00:52 | NUR ---
pt still complaining of urinary frequency and burning
[2019-09-15 05:17] LABS: BASOPHILS % (AUTO) 0.7 % (0-1); EOSINOPHILS # (AUTO) 0.3 X10'3 (0-0.9); EOSINOPHILS % (AUTO) 4.6 % (0-6); HEMATOCRIT 41.2 % (42.0-52.0); HEMOGLOBIN 13.9 g/dl (14.0-17.9); LYMPHOCYTES # (AUTO) 1.3 X10'3 (1.1-4.8); LYMPHOCYTES % (AUTO) 18.9 % (21-51); MEAN CORPUSCULAR HEMOGLOBIN 29.3 PG (27.0-31.0); MEAN CORPUSCULAR HGB CONC 33.6 g/dL (33.0-36.5); MEAN CORPUSCULAR VOLUME 87.1 FL (78-98); MEAN PLATELET VOLUME 7.6 FL (7.4-10.4); MONOCYTES # (AUTO) 0.8 X10'3 (0-0.9); MONOCYTES % (AUTO) 11.4 % (2-12); NEUTROPHILS # (AUTO) 4.3 X10'3 (1.8-7.7); NEUTROPHILS % (AUTO) 64.4 % (42-75); PLATELET COUNT 328 X10'3 (140-440); RED BLOOD COUNT 4.73 X10'6 (4.70-6.10); RED CELL DISTRIBUTION WIDTH 16.3 % (11.5-14.5); WHITE BLOOD COUNT 6.7 X10'3 (4.5-11.0)
[2019-09-15 05:39] LABS: ANION GAP 9 (8-16); BLOOD UREA NITROGEN 16 MG/DL (7-18); BUN/CREATININE RATIO 10.9 (5.4-32.0); CHLORIDE 100 MMOL/L (99-107); CREATININE 1.47 MG/DL (0.60-1.10); GLUCOSE 102 MG/DL (70-104); SODIUM 139 MMOL/L (135-145); TOTAL CARBON DIOXIDE 30.3 MMOL/L (24-32)
[2019-09-15 05:40] LABS: ALBUMIN 2.7 G/DL (3.4-5.0); CALCIUM 8.9 MG/DL (8.5-10.1); MAGNESIUM 1.9 MG/DL (1.5-2.4); eGFR 49 ML/MIN
--- NOTE | 2019-09-15 06:16 | NUR ---
Patient in room CLIFF 352. I have received report from ENEDINA Bernard and had the opportunity to ask questions and assume patient care.
--- NOTE | 2019-09-15 06:16 | NUR ---
Report given to ENEDINA Mcgowan
[2019-09-15 07:00] VITALS: BP 149/92
[2019-09-15] MEDS: K and/or MAG REPLACEMENT MC SCH (07:00)
--- NOTE | 2019-09-15 07:00 | NUR ---
Patient in 10/10 pain and feeling urgency from having to void. Patient only able to empty 100 mL from bladder. Bladder scan showed 836 mL of urine in bladder. MD notified. Patient then up to BSC for BM and was able to urinate 400 ML. Upon second bladder scan >500 mL still remaining. MD returned page and primary nurse received order for Flomax and straight cath. Straight cath performed and 450 mL removed. Patient stated feeling much better.
[2019-09-15] MEDS: furosemide 20 MG/2 ML vial IV SCH ×2 (07:37→19:02)
[2019-09-15] MEDS: losartan 50mg tablet PO SCH (07:38)
[2019-09-15] MEDS: tamsulosin 0.4mg capsule PO SCH (07:39)
[2019-09-15] MEDS: aspirin 81mg tablet.DR PO SCH (07:39)
[2019-09-15] MEDS: lactobacillus rhamnosus 10,000 MMU CELLS/CAPSULE PO SCH ×2 (07:39→19:03)
[2019-09-15] MEDS: metoprolol tartrate 25mg tablet PO SCH ×2 (07:40→19:03)
[2019-09-15] MEDS: phenazopyridine 100mg tablet PO SCH ×3 (07:40→17:02)
[2019-09-15] MEDS: amLODIPine 5mg tablet PO SCH (07:40)
[2019-09-15] MEDS: enoxaparin 40mg/0.4ml syringe SQ SCH (07:41)
[2019-09-15 11:00] VITALS: BP 129/90
[2019-09-15] MEDS ORDERED: PHEN-786 PO (12:34)
[2019-09-15] MEDS ORDERED: LOSA100T57 PO (12:34)
[2019-09-15] MEDS ORDERED: NOR5T PO (12:34)
[2019-09-15] MEDS ORDERED: ASPI-1071 PO (12:34)
[2019-09-15] MEDS ORDERED: POTA20TA19 PO (12:34)
[2019-09-15] MEDS ORDERED: FURO-150 PO (12:34)
[2019-09-15] MEDS ORDERED: tamsulosin capsule PO (12:34)
[2019-09-15] MEDS ORDERED: METO25TA6 PO (12:34)
--- NOTE | 2019-09-15 18:18 | NUR ---
Problems reprioritized. Patient report given, questions answered & plan of care reviewed with ENEDINA Francis.
--- NOTE | 2019-09-15 18:40 | NUR ---
Patient in room CLIFF 352. I have received report from ENEDINA Mcgowan and had the opportunity to ask questions and assume patient care. Addendum: 09/15/19 at 1927 by Yudith Stokes RN Amended: Links added.
[2019-09-15 18:45] VITALS: BP 152/94
[2019-09-16 00:07] VITALS: BP 129/81
[2019-09-16] MEDS: acetaminophen w/codeine (30MG) #3 tablet PO PRN (01:57)
--- NOTE | 2019-09-16 02:00 | NUR ---
TYLENOL # 3 GIVEN FOR GENERAL PAIN. WAS UP TO BATHROOM, AYSHA CHANGED. Addendum: 09/16/19 at 0233 by Yudith Stokes RN Amended: Links added.
--- NOTE | 2019-09-16 04:58 | NUR ---
BLADDER SCANNED 400ML, URINAL HAD 300 NEXT TO BED. PT STATES THAT WAS OVER AN HOUR AGO THAT HE USED URINAL. DENIES ANY DISCOMFORT AT THIS TIME, DECLINES CATH AND WANTS TO HAVE CHECKED AGAIN WHEN HE WAKES UP AND URINATES. Addendum: 09/16/19 at 0500 by Yudith Stokes RN Amended: Links added.
[2019-09-16 05:01] LABS: BASOPHILS # (AUTO) 0.1 X10'3 (0-0.2); BASOPHILS % (AUTO) 1.3 % (0-1); EOSINOPHILS # (AUTO) 0.2 X10'3 (0-0.9); EOSINOPHILS % (AUTO) 3.9 % (0-6); HEMATOCRIT 39.5 % (42.0-52.0); HEMOGLOBIN 13.3 g/dl (14.0-17.9); LYMPHOCYTES # (AUTO) 1.1 X10'3 (1.1-4.8); LYMPHOCYTES % (AUTO) 17.1 % (21-51); MEAN CORPUSCULAR HEMOGLOBIN 29.4 PG (27.0-31.0); MEAN CORPUSCULAR HGB CONC 33.8 g/dL (33.0-36.5); MEAN CORPUSCULAR VOLUME 87.1 FL (78-98); MEAN PLATELET VOLUME 7.5 FL (7.4-10.4); MONOCYTES # (AUTO) 0.6 X10'3 (0-0.9); MONOCYTES % (AUTO) 10.1 % (2-12); NEUTROPHILS # (AUTO) 4.2 X10'3 (1.8-7.7); NEUTROPHILS % (AUTO) 67.6 % (42-75); PLATELET COUNT 300 X10'3 (140-440); RED BLOOD COUNT 4.53 X10'6 (4.70-6.10); RED CELL DISTRIBUTION WIDTH 15.6 % (11.5-14.5); WHITE BLOOD COUNT 6.2 X10'3 (4.5-11.0)
[2019-09-16 05:23] LABS: ALBUMIN 2.5 G/DL (3.4-5.0); ANION GAP 7 (8-16); BLOOD UREA NITROGEN 20 MG/DL (7-18); BUN/CREATININE RATIO 12.7 (5.4-32.0); CALCIUM 8.7 MG/DL (8.5-10.1); CHLORIDE 102 MMOL/L (99-107); CREATININE 1.57 MG/DL (0.60-1.10); GLUCOSE 114 MG/DL (70-104); MAGNESIUM 2.1 MG/DL (1.5-2.4); POTASSIUM 4.2 MMOL/L (3.5-5.1); SODIUM 139 MMOL/L (135-145); TOTAL CARBON DIOXIDE 29.6 MMOL/L (24-32); eGFR 45 ML/MIN
--- NOTE | 2019-09-16 06:17 | NUR ---
Problems reprioritized. Patient report given, questions answered & plan of care reviewed with ENEDINA SOLIZ. Addendum: 09/16/19 at 0618 by Yudith Stokes RN Amended: Links added.
[2019-09-16] MEDS: K and/or MAG REPLACEMENT MC SCH (06:59)
[2019-09-16] MEDS: furosemide 20 MG/2 ML vial IV SCH (08:30)
[2019-09-16] MEDS: phenazopyridine 100mg tablet PO SCH ×2 (08:31→12:39)
[2019-09-16] MEDS: amLODIPine 5mg tablet PO SCH (08:31)
[2019-09-16] MEDS: metoprolol tartrate 25mg tablet PO SCH (08:32)
[2019-09-16] MEDS: tamsulosin 0.4mg capsule PO SCH (08:32)
[2019-09-16] MEDS: lactobacillus rhamnosus 10,000 MMU CELLS/CAPSULE PO SCH (08:33)
[2019-09-16] MEDS: losartan 50mg tablet PO SCH (08:33)
[2019-09-16] MEDS: aspirin 81mg tablet.DR PO SCH (08:33)
[2019-09-16] MEDS: enoxaparin 40mg/0.4ml syringe SQ SCH (08:33)
[2019-09-16 09:11] VITALS: BP 120/77
[2019-09-16 11:00] VITALS: BP 161/91
--- NOTE | 2019-09-16 15:25 | NUR ---
Patient was discharged with PIV removed and cannula intact. Patient was given discharge instructions and taken downstairs. Patient was distressed because he did not want to get his electric wheelchair wet because he states, "this is all I have". Patient also stated he left everything back in his room. Patient was brought back upstairs and social science professor was brought into help figure out a plan for this patient. Patient stated he can not picking belt operator his meds because of the rain as well. Kesha with is working on trying to figure out a way for the patient to be able to leave. Based on the internets description of his wheelchair it looks like the only part that can cause issues in the rain is the joystick.
--- NOTE | 2019-09-16 15:50 | NUR ---
Patient is going to take the bus and plastic is being placed around the joystick of the wheelchair so that it can prevent water damage. Patient stated this is okay. Patient took all belongings including discharge instructions.
[2019-09-17] MEDS ORDERED: FLO0.4C PO (13:24)
[2019-09-17] MEDS ORDERED: METO50TA17 PO (14:37)
[2019-09-17] MEDS ORDERED: ASPI-611 PO (14:37)
[2019-09-17] MEDS ORDERED: AMLO10TA PO (14:37)
[2019-09-17] MEDS ORDERED: FURO-150 PO (14:37)
[2019-09-17] MEDS ORDERED: POTA20TA19 PO (14:37)
[2019-09-17] MEDS ORDERED: LOSA100T57 PO (14:37)
== END 2019-09-16 15:05 | disposition home or self-care (01) | DRG 194 ==
LOC: ER 00:26 → ED HOLD 04:19 → SUR 3N 05:32
PROVIDERS: ADMIT Hospitalist; ATTEND Family Medicine
DX: I13.0 Hypertensive heart and chronic kidney disease with heart failure and stage 1 through stage 4 chronic kidney disease, or unspecified chronic kidney disease (principal); N13.8 Other obstructive and reflux uropathy; E78.5 Hyperlipidemia, unspecified; I50.31 Acute diastolic (congestive) heart failure; G89.29 Other chronic pain; F12.90 Cannabis use, unspecified, uncomplicated; M10.9 Gout, unspecified; N18.9 Chronic kidney disease, unspecified; N40.1 Benign prostatic hyperplasia with lower urinary tract symptoms; Z59.0 Homelessness; Z86.73 Personal history of transient ischemic attack (TIA), and cerebral infarction without residual deficits; Z99.3 Dependence on wheelchair; Z79.899 Other long term (current) drug therapy
CPT/HCPCS: 36415; 71045; 80048; 80053; 81001; 83735; 83880; 84484; 85025; 85610; 85730; 87081; 87088; 93005; 96365; 96375; 97116; 97161; 97530; 99285; G0378; J0696; J1650; J1940; J2185; J2270; J2543

== ENCOUNTER 2019-09-17 13:03 | Inpatient (IN) | payer MEDICAID ==
[~2019-09-17] VITALS: Ht 177.8 cm; Wt 95.5 kg
[~2019-09-17 13:03] MED LIST changes: -ACET-3068 PO; +ASPI-1071 PO; -ASPI81TA52 PO; -ATOR20TA66 PO; -CELE-193 PO; +FURO-150 PO; +LOSA100T57 PO; +METO25TA6 PO; +PHEN-786 PO; +POTA20TA19 PO
[2019-09-17] MEDS ORDERED: FLO0.4C PO (13:24)
--- NOTE | 2019-09-17 13:32 | NUR ---
Pt to CT with RN on monitor
[2019-09-17 13:36] LABS: BASOPHILS # (AUTO) 0.1 X10'3 (0-0.2); BASOPHILS % (AUTO) 0.8 % (0-1); EOSINOPHILS # (AUTO) 0.2 X10'3 (0-0.9); EOSINOPHILS % (AUTO) 2.5 % (0-6); HEMOGLOBIN 14.5 g/dl (14.0-17.9); LYMPHOCYTES # (AUTO) 1.2 X10'3 (1.1-4.8); LYMPHOCYTES % (AUTO) 17.9 % (21-51); MEAN CORPUSCULAR HEMOGLOBIN 29.1 PG (27.0-31.0); MEAN CORPUSCULAR HGB CONC 33.8 g/dL (33.0-36.5); MEAN CORPUSCULAR VOLUME 86.1 FL (78-98); MEAN PLATELET VOLUME 7.7 FL (7.4-10.4); MONOCYTES # (AUTO) 0.6 X10'3 (0-0.9); MONOCYTES % (AUTO) 9.6 % (2-12); NEUTROPHILS # (AUTO) 4.5 X10'3 (1.8-7.7); NEUTROPHILS % (AUTO) 69.2 % (42-75); PLATELET COUNT 351 X10'3 (140-440); RED BLOOD COUNT 4.99 X10'6 (4.70-6.10); RED CELL DISTRIBUTION WIDTH 16.1 % (11.5-14.5); WHITE BLOOD COUNT 6.5 X10'3 (4.5-11.0)
--- NOTE | 2019-09-17 13:38 | NUR ---
TELE NEURO INITIATED
[2019-09-17 14:01] LABS: PARTIAL THROMBOPLASTIN TIME 31 SECONDS (22-32)
[2019-09-17 14:03] LABS: ALANINE AMINOTRANSFERASE 22 U/L (12-78); ALBUMIN 3.1 G/DL (3.4-5.0); ALBUMIN/GLOBULIN RATIO 0.7 (1.1-1.5); ALKALINE PHOSPHATASE 77 IU/L (46-116); ANION GAP 9 (8-16); ASPARTATE AMINO TRANSFERASE 25 U/L (10-37); BILIRUBIN,TOTAL 0.2 MG/DL (0.1-1.0); BLOOD UREA NITROGEN 30 MG/DL (7-18); BUN/CREATININE RATIO 15.4 (5.4-32.0); CALCIUM 8.9 MG/DL (8.5-10.1); CHLORIDE 99 MMOL/L (99-107); CREATININE 1.95 MG/DL (0.60-1.10); GLUCOSE 138 MG/DL (70-104); POTASSIUM 3.9 MMOL/L (3.5-5.1); SODIUM 136 MMOL/L (135-145); TOTAL CARBON DIOXIDE 27.7 MMOL/L (24-32); TOTAL PROTEIN 7.5 G/DL (6.4-8.2); eGFR 35 ML/MIN
[2019-09-17 14:06] LABS: TROPONIN I < 0.04 NG/ML (0.0-0.05)
--- NOTE | 2019-09-17 14:19 | NUR ---
POOR HISTORIAN. APPARENTLY HAD A FALL VS NEAR FALL IN LIBRARY. PT DOESN'T REMEMBER.HE WAS TOLD BY LIBRARY STAFF TO COME TO HOSPITAL AND HE DID SO IN HIS POWER CHAIR. PT DISCHARGED FROM HERE YESTERDAY FOLLOWING ANDMISSION FOR UTI AND EDEMA. PT SAYS HE HAS NOT FILLED HIS NEW PRESCRIPTIONS. CURRENTLY C/O A VERY SORE BACK. SAYS HAD STROKE 3 1/2 YEARS AGO AND HAS CHRONIC RIGHT SIDED WEAKNESS AND NUMBNESS. HE FEELS HIS WEAKNESS IS WORSE TODAY. CURRENTLY HE DENIES ANY FEELING TO LIGHT TOUCH OVER THE RIGHT FACE,ARM OR LEG. HE HAS WEAKNESS OF THE RIGHT ARM AND A DRIFT IS PRESENT. HE CAN MOVE THE RIGHT LEG AND MAKE ATTEMPTS TO LIFT. HE EXTINGISHES ON THE RIGHT TO DOUBLE SIMULTANEIOUS STIMULATION. HIS SPEECH IS SLURRED. HE HAS A WET SOUNDING COUGHT TELE NEURO EXAM COMPLETED WITH DR Mariano [id number].
[2019-09-17] MEDS ORDERED: ASPI-611 PO (14:37)
[2019-09-17] MEDS ORDERED: FURO-150 PO (14:37)
[2019-09-17] MEDS ORDERED: AMLO10TA PO (14:37)
[2019-09-17] MEDS ORDERED: METO50TA17 PO (14:37)
[2019-09-17] MEDS ORDERED: LOSA100T57 PO (14:37)
[2019-09-17] MEDS ORDERED: POTA20TA19 PO (14:37)
[2019-09-17] MEDS ORDERED: normal saline 1000ML IV soln IVB ONE (14:40)
[2019-09-17 14:51] LABS: CLARITY,URINE CLEAR (Clear); GLUCOSE, URINE 100 mg/dl (Neg); KETONES,URINE NEGATIVE (Neg); LEUKOCYTE ESTERASE ,URINE NEGATIVE (Neg); OCCULT BLOOD,URINE NEGATIVE (Neg); PROTEIN,URINE 30 mg/dl (Neg)
[2019-09-17 14:59] LABS: COLOR,URINE DARK YELLOW (Yellow); UA COLLECTION TYPE STRAIGHT CATH
[2019-09-17 15:00] LABS: NITRITES, URINE NEGATIVE (Neg)
[2019-09-17 15:01] LABS: BACTERIA,URINE NONE SEEN /HPF (Neg); MUCUS STRANDS NONE SEEN /LPF (Neg); RBC,URINE NONE SEEN /HPF (0-2); SQUAMOUS EPITHELIAL CELL,UR FEW /LPF (FEW); WBC,URINE 0-4 /HPF (0-4)
[2019-09-17] MEDS ORDERED: acetaminophen 325mg tablet PO PRN (15:20)
[2019-09-17] MEDS ORDERED: potassium CL 10mEq/100ml bag 100 ML IV PRN ×2 (15:20)
[2019-09-17] MEDS ORDERED: potassium Cl 20 mEq SR tablet PO PRN ×2 (15:20)
[2019-09-17] MEDS ORDERED: magnesium 4gm in 100ml NS 100 ML IV PRN (15:20)
[2019-09-17] MEDS ORDERED: mag hydrox/Alum hydrox/simeth 30ml oral suspension PO PRN (15:20)
[2019-09-17] MEDS ORDERED: magnesium Cl slow-release 64mg tablet PO PRN (15:20)
[2019-09-17] MEDS ORDERED: ondansetron/PF 4mg/2ml inj IV PRN (15:20)
[2019-09-17] MEDS ORDERED: magnesium hydroxide 30ml (MOM) UD suspension PO PRN (15:20)
[2019-09-17] MEDS ORDERED: magnesium 2GM in 50ml NS 50 ML IV PRN (15:20)
--- NOTE | 2019-09-17 15:57 | NUR ---
Patient in room ED 13. I have received report from Wendy MCCONNELL and had the opportunity to ask questions and assume patient care.
[2019-09-17 16:58] VITALS: BP 132/87
--- NOTE | 2019-09-17 17:38 | NUR ---
Selvin 1425 Re: Everette Whitten. Pt is having 9/10 pain in right hip. Can we get pain medication?
[2019-09-17 18:00] VITALS: BP 108/60
--- NOTE | 2019-09-17 18:15 | NUR ---
Problems reprioritized. Patient report given, questions answered & plan of care reviewed with Mallika MCCONNELL.
--- NOTE | 2019-09-17 18:15 | NUR ---
Received patient report from ENEDINA Montalvo. Assumed patient care.
[2019-09-17] MEDS: HYDROcodone/acetaminophen 10/325mg tab PO PRN ×2 (18:40→22:56)
[2019-09-17] MEDS: aspirin 81mg tablet.DR PO SCH (19:43)
[2019-09-17 20:00] VITALS: BP_SYST 156; BP_SYST 162; BP_DIAS 96
[2019-09-17 22:00] VITALS: BP 135/93
[2019-09-18] VITALS (8 sets, daily range): BP systolic 131–167; BP diastolic 18–103
[2019-09-18] MEDS: normal saline 1000ml 1,000 ML IV SCH ×3 (00:13→11:37)
[2019-09-18] MEDS: piperacillin/tazo 3.375gm/50ml 50 ML IV SCH ×3 (00:14→16:16)
[2019-09-18] MEDS: HYDROcodone/acetaminophen 10/325mg tab PO PRN ×2 (04:01→12:40)
[2019-09-18 05:14] LABS: BASOPHILS # (AUTO) 0.1 X10'3 (0-0.2); BASOPHILS % (AUTO) 0.9 % (0-1); EOSINOPHILS # (AUTO) 0.2 X10'3 (0-0.9); EOSINOPHILS % (AUTO) 4.3 % (0-6); HEMATOCRIT 38.2 % (42.0-52.0); HEMOGLOBIN 12.8 g/dl (14.0-17.9); LYMPHOCYTES # (AUTO) 1.1 X10'3 (1.1-4.8); LYMPHOCYTES % (AUTO) 20.5 % (21-51); MEAN CORPUSCULAR HEMOGLOBIN 29.2 PG (27.0-31.0); MEAN CORPUSCULAR HGB CONC 33.5 g/dL (33.0-36.5); MEAN CORPUSCULAR VOLUME 87.2 FL (78-98); MEAN PLATELET VOLUME 7.9 FL (7.4-10.4); MONOCYTES # (AUTO) 0.6 X10'3 (0-0.9); MONOCYTES % (AUTO) 11.3 % (2-12); NEUTROPHILS # (AUTO) 3.5 X10'3 (1.8-7.7); PLATELET COUNT 273 X10'3 (140-440); RED BLOOD COUNT 4.38 X10'6 (4.70-6.10); RED CELL DISTRIBUTION WIDTH 16.1 % (11.5-14.5); WHITE BLOOD COUNT 5.6 X10'3 (4.5-11.0)
[2019-09-18 05:32] LABS: ALANINE AMINOTRANSFERASE 14 U/L (12-78); ALBUMIN 2.6 G/DL (3.4-5.0); ALBUMIN/GLOBULIN RATIO 0.7 (1.1-1.5); ALKALINE PHOSPHATASE 59 IU/L (46-116); ANION GAP 7 (8-16); ASPARTATE AMINO TRANSFERASE 28 U/L (10-37); BILIRUBIN,TOTAL 0.3 MG/DL (0.1-1.0); BLOOD UREA NITROGEN 27 MG/DL (7-18); BUN/CREATININE RATIO 14.9 (5.4-32.0); CALCIUM 8.5 MG/DL (8.5-10.1); CHLORIDE 104 MMOL/L (99-107); CREATININE 1.81 MG/DL (0.60-1.10); GLUCOSE 107 MG/DL (70-104); POTASSIUM 4.2 MMOL/L (3.5-5.1); SODIUM 138 MMOL/L (135-145); TOTAL CARBON DIOXIDE 27.1 MMOL/L (24-32); TOTAL PROTEIN 6.3 G/DL (6.4-8.2); eGFR 38 ML/MIN
--- NOTE | 2019-09-18 06:14 | NUR ---
Patient report given, questions answered and plan of care reviewed with ENEDINA Denis.
[2019-09-18] MEDS: aspirin 81mg tablet.DR PO SCH (07:54)
[2019-09-18] MEDS: enoxaparin 40mg/0.4ml syringe SQ SCH (07:54)
[2019-09-18] MEDS: K and/or MAG REPLACEMENT MC SCH (07:54)
[2019-09-18 08:28] LABS: CHOL/HDL RATIO 4.5 (0.00-4.99); CHOLESTEROL 113 MG/DL (0-200); HDL CHOLESTEROL 25 MG/DL (35-60); LDL CHOLESTEROL 71 MG/DL (50-100); TRIGLYCERIDES 120 MG/DL (20-135)
[2019-09-18] MEDS: tamsulosin 0.4mg capsule PO SCH (10:16)
--- NOTE | 2019-09-18 18:20 | NUR ---
Received patient report from ENEDINA Denis. Assumed patient care.
[2019-09-18] MEDS: phenazopyridine 100mg tablet PO SCH (20:55)
[2019-09-19] MEDS: normal saline 1000ml 1,000 ML IV SCH ×2 (01:58→07:20)
[2019-09-19 02:00] VITALS: BP 159/92
[2019-09-19 06:07] LABS: BASOPHILS # (AUTO) 0.1 X10'3 (0-0.2); BASOPHILS % (AUTO) 1.1 % (0-1); EOSINOPHILS # (AUTO) 0.2 X10'3 (0-0.9); HEMATOCRIT 36.5 % (42.0-52.0); HEMOGLOBIN 12.3 g/dl (14.0-17.9); LYMPHOCYTES # (AUTO) 1.3 X10'3 (1.1-4.8); LYMPHOCYTES % (AUTO) 22.6 % (21-51); MEAN CORPUSCULAR HEMOGLOBIN 29.4 PG (27.0-31.0); MEAN CORPUSCULAR HGB CONC 33.8 g/dL (33.0-36.5); MEAN PLATELET VOLUME 7.8 FL (7.4-10.4); MONOCYTES # (AUTO) 0.6 X10'3 (0-0.9); MONOCYTES % (AUTO) 10.3 % (2-12); NEUTROPHILS # (AUTO) 3.5 X10'3 (1.8-7.7); PLATELET COUNT 270 X10'3 (140-440); RED CELL DISTRIBUTION WIDTH 15.9 % (11.5-14.5); WHITE BLOOD COUNT 5.6 X10'3 (4.5-11.0)
--- NOTE | 2019-09-19 06:12 | NUR ---
Patient report given, questions answered and plan of care reviewed with ENEDINA Denis.
[2019-09-19 06:26] LABS: ALANINE AMINOTRANSFERASE 20 U/L (12-78); ALBUMIN 2.7 G/DL (3.4-5.0); ALBUMIN/GLOBULIN RATIO 0.7 (1.1-1.5); ALKALINE PHOSPHATASE 56 IU/L (46-116); ANION GAP 7 (8-16); ASPARTATE AMINO TRANSFERASE 24 U/L (10-37); BILIRUBIN,TOTAL 0.3 MG/DL (0.1-1.0); BLOOD UREA NITROGEN 25 MG/DL (7-18); CALCIUM 8.3 MG/DL (8.5-10.1); CHLORIDE 105 MMOL/L (99-107); CREATININE 1.67 MG/DL (0.60-1.10); GLUCOSE 93 MG/DL (70-104); MAGNESIUM 2.1 MG/DL (1.5-2.4); POTASSIUM 4.5 MMOL/L (3.5-5.1); SODIUM 140 MMOL/L (135-145); TOTAL CARBON DIOXIDE 27.7 MMOL/L (24-32); TOTAL PROTEIN 6.4 G/DL (6.4-8.2); eGFR 42 ML/MIN
[2019-09-19] MEDS: enoxaparin 40mg/0.4ml syringe SQ SCH (07:30)
[2019-09-19] MEDS: HYDROcodone/acetaminophen 10/325mg tab PO PRN (07:31)
[2019-09-19] MEDS: aspirin 81mg tablet.DR PO SCH (07:31)
[2019-09-19] MEDS: K and/or MAG REPLACEMENT MC SCH (07:31)
[2019-09-19] MEDS: phenazopyridine 100mg tablet PO SCH (07:31)
[2019-09-19] MEDS: tamsulosin 0.4mg capsule PO SCH (07:31)
[2019-09-19] MEDS ORDERED: losartan 50mg tablet PO SCH (08:10)
[2019-09-19 08:31] VITALS: BP 166/96
[2019-09-19] MEDS ORDERED: LOSA50TA64 PO (11:50)
[2019-09-19] MEDS ORDERED: PHEN-786 PO (11:50)
[2019-09-19 12:01] VITALS: BP 140/76
== END 2019-09-19 12:08 | disposition home or self-care (01) | DRG 47 ==
LOC: ER 13:05 → ED HOLD 15:20 → ORTHO 4S 16:45 → OBSVTOIN 17:23
PROVIDERS: ADMIT Family Medicine; ATTEND Family Medicine
DX: G45.9 Transient cerebral ischemic attack, unspecified (principal); N17.0 Acute kidney failure with tubular necrosis; I12.9 Hypertensive chronic kidney disease with stage 1 through stage 4 chronic kidney disease, or unspecified chronic kidney disease; M10.9 Gout, unspecified; N40.0 Benign prostatic hyperplasia without lower urinary tract symptoms; E86.0 Dehydration; N39.0 Urinary tract infection, site not specified; Z88.8 Allergy status to other drugs, medicaments and biological substances; Z91.030 Bee allergy status; Z59.0 Homelessness; Z79.899 Other long term (current) drug therapy; Z99.3 Dependence on wheelchair
CPT/HCPCS: 36415; 70450; 70544; 70547; 70551; 71045; 80053; 80061; 81001; 82948; 83605; 83735; 84145; 84484; 85025; 85610; 85730; 87040; 87081; 92508; 92616; 93005; 97110; 97116; 97161; 97530; G0378; J1650; J2543; J7030

== ENCOUNTER 2019-09-24 22:42 | Emergency (ER) | payer MEDICAID ==
[~2019-09-24] VITALS: Ht 177.8 cm; Wt 95.5 kg
[~2019-09-24 22:42] MED LIST changes: -ASPI-1071 PO; +ASPI-611 PO; +FLO0.4C PO; -FURO-150 PO; -LOSA100T57 PO; +LOSA50TA64 PO; -METO25TA6 PO; -NOR5T PO; -POTA20TA19 PO; -tamsulosin capsule PO
[2019-09-24] MEDS ORDERED: HYDROcodone/acetaminophen 5mg/325mg tablet PO ONE (23:25)
[2019-09-25 00:45] VITALS: BP 175/100
== END 2019-09-25 00:49 | disposition home or self-care (01) ==
LOC: ER 22:43
DX: M79.671 Pain in right foot (principal); M79.672 Pain in left foot; M25.551 Pain in right hip; M25.552 Pain in left hip; K02.9 Dental caries, unspecified; G89.29 Other chronic pain; M79.604 Pain in right leg; M79.605 Pain in left leg; I10 Essential (primary) hypertension; M10.9 Gout, unspecified; F10.99 Alcohol use, unspecified with unspecified alcohol-induced disorder; F12.90 Cannabis use, unspecified, uncomplicated; Z56.0 Unemployment, unspecified; Z98.890 Other specified postprocedural states; Z86.73 Personal history of transient ischemic attack (TIA), and cerebral infarction without residual deficits; Z88.8 Allergy status to other drugs, medicaments and biological substances; Z91.030 Bee allergy status; Z79.82 Long term (current) use of aspirin; Z79.899 Other long term (current) drug therapy; Z99.3 Dependence on wheelchair; Y90.9 Presence of alcohol in blood, level not specified
CPT/HCPCS: 99283

== ENCOUNTER 2019-09-27 01:04 | Emergency (ER) | payer MEDICAID ==
[~2019-09-27] VITALS: Ht 177.8 cm; Wt 95.5 kg
[2019-09-27] MEDS ORDERED: HYDROcodone/acetaminophen 5mg/325mg tablet PO ONE (02:50)
[2019-09-27] MEDS ORDERED: ketorolac trometh. 30mg/ml inj. IM ONE (02:50)
[2019-09-27] MEDS ORDERED: orphenadrine citrate 60mg/2ml inj. IM ONE (03:05)
[2019-09-27 05:52] VITALS: BP 156/99
== END 2019-09-27 05:55 | disposition home or self-care (01) ==
LOC: ER 01:04
DX: R60.0 Localized edema (principal); I10 Essential (primary) hypertension; M10.9 Gout, unspecified; F10.99 Alcohol use, unspecified with unspecified alcohol-induced disorder; F12.90 Cannabis use, unspecified, uncomplicated; Z86.73 Personal history of transient ischemic attack (TIA), and cerebral infarction without residual deficits; Z59.0 Homelessness; Z56.0 Unemployment, unspecified; Z98.890 Other specified postprocedural states; Z88.8 Allergy status to other drugs, medicaments and biological substances; Z91.030 Bee allergy status; Z79.82 Long term (current) use of aspirin; Z79.899 Other long term (current) drug therapy; W18.39XA Other fall on same level, initial encounter; Y93.89 Activity, other specified; Y92.89 Other specified places as the place of occurrence of the external cause; Y99.8 Other external cause status; Y90.9 Presence of alcohol in blood, level not specified
CPT/HCPCS: 73502; 96372; 99284; J1885; J2360

== ENCOUNTER 2019-11-09 20:15 | Emergency (ER) | payer MEDICAID ==
[~2019-11-09] VITALS: Ht 177.8 cm; Wt 110.0 kg
[2019-11-09 20:29] VITALS: BP 156/92
--- NOTE | 2019-11-09 21:25 | NUR ---
PT STATED HE WAS SUICIDAL FROM THE PAIN AND IF HE DIDN'T GET A PLACE TO STAY [facility]. STATED HE COULD NOT GO BACK THERE AND SLEEP ON THE FLOOR ANY LONGER, THAT IT WAS TOO PAINFUL IN HIS LEFT HIP. STATES A LADY IS TRYING TO FIND HIM A PLACE TO STAY AND THAT IF THAT DOESN'T WORK OUT THAT HE WILL CONSIDER SUICIDE
[2019-11-09] MEDS ORDERED: ketorolac tromethamine 15mg/ml inj. IM ONE (23:10)
[2019-11-09] MEDS ORDERED: traMADol 50MG tablet PO ONE (23:10)
== END 2019-11-09 23:55 | disposition home or self-care (01) ==
LOC: ER 20:16
DX: G89.29 Other chronic pain (principal); I10 Essential (primary) hypertension; F10.99 Alcohol use, unspecified with unspecified alcohol-induced disorder; F12.90 Cannabis use, unspecified, uncomplicated; Z86.73 Personal history of transient ischemic attack (TIA), and cerebral infarction without residual deficits; Z59.0 Homelessness; Z56.0 Unemployment, unspecified; Z88.8 Allergy status to other drugs, medicaments and biological substances; Z91.030 Bee allergy status; Z79.82 Long term (current) use of aspirin; Z79.899 Other long term (current) drug therapy; Y90.9 Presence of alcohol in blood, level not specified
CPT/HCPCS: 96372; 99284; J1885

== ENCOUNTER 2019-11-24 03:23 | Emergency (ER) | payer MEDICAID ==
[~2019-11-24] VITALS: Ht 177.8 cm; Wt 120.0 kg
--- NOTE | 2019-11-24 03:28 | NUR ---
ENTIRE ROOM EMPTIED OUT IT WAS REPORTED THAT THE PATIENT HAS BED BUGS. HOUSEKEEPING NOTIFIED FOR MAT.
[2019-11-24] MEDS ORDERED: HYDROcodone/acetaminophen 5mg/325mg tablet PO ONE (03:35)
[2019-11-24] MEDS ORDERED: ketorolac trometh inj. 60 MG/2 ML VIAL IM ONE (03:35)
--- NOTE | 2019-11-24 04:45 | NUR ---
pt refusing to get out of bed , stating he does not want to leave , pt has been discharged home , brought in by ems from [facility]. pt wheel chair is at the facility . Security called to help assist patient out of bed to wheen chair. pt was able to independently pull himself to sitting without assistance to sitting, then was able to stand up, pt was able to reach behind himself and grab his suspender and attach it to his pants as he stood in place without unsteady gait. pt was able to turn himself around and position himself into wheel chair . pt was able to sign discharge paper work. verbalize understanding that "a follow up appt needs to happen with the [facility] and that [facility] and [facility] his electronic wheel chair is , and he needs it " a taxi and the [facility] bothhave been called for his discharge home . pt given a prescription for his skin condition as requested for his return bcak to the [facility] as well as a note that allows him bed rest for the next three days . pt verbalized undertsanding . security remained at bedside durning the entire discharage dialogue
[2019-11-24] MEDS ORDERED: PERM60CR4 TOP (04:52)
--- NOTE | 2019-11-24 05:15 | NUR ---
pt left in room in wheelchair with belongings, discharge instructions awaiting taxi cab for his transportation home ,
[2019-11-24 05:21] VITALS: BP 141/101
--- NOTE | 2019-11-24 05:27 | NUR ---
pt still waiting for taxi cab
--- NOTE | 2019-11-24 05:35 | NUR ---
[facility] ARRIVED SECURITY BCAK ON UNIT TO HELP ESCORT PT TO [facility] . PT WAS ABLE TO TRNASFER HIMSELF TO CAB INDEPENDENTLY WITHOUT ASSITANCE. PT FRUSTRATED HE HAS TO RETURN TO [facility] BUT STATED THAT WHERE HIS ELECTRIC WHEEL CHAIR IS
== END 2019-11-24 05:42 | disposition home or self-care (01) ==
LOC: ER 03:24
DX: G89.29 Other chronic pain (principal); I10 Essential (primary) hypertension; M10.9 Gout, unspecified; F10.99 Alcohol use, unspecified with unspecified alcohol-induced disorder; F12.90 Cannabis use, unspecified, uncomplicated; Z59.0 Homelessness; Z56.0 Unemployment, unspecified; Z98.890 Other specified postprocedural states; Z88.8 Allergy status to other drugs, medicaments and biological substances; Z91.030 Bee allergy status; Z79.82 Long term (current) use of aspirin; Z79.899 Other long term (current) drug therapy; Z86.73 Personal history of transient ischemic attack (TIA), and cerebral infarction without residual deficits; W18.39XA Other fall on same level, initial encounter; Y93.89 Activity, other specified; Y92.89 Other specified places as the place of occurrence of the external cause; Y99.8 Other external cause status; Y90.9 Presence of alcohol in blood, level not specified
CPT/HCPCS: 96372; 99284; J1885

== ENCOUNTER 2019-12-02 19:11 | Emergency (ER) | payer MEDICAID ==
[~2019-12-02] VITALS: Ht 182.9 cm; Wt 113.6 kg
[~2019-12-02 19:11] MED LIST changes: +PERM60CR4 TOP
[2019-12-02 19:33] VITALS: BP 171/113
--- NOTE | 2019-12-02 20:49 | NUR ---
PT SLEEPING IN WHEELCHAIR IN ROOM
[2019-12-02] MEDS ORDERED: PERM60CR19 TOP (22:27)
== END 2019-12-03 00:05 | disposition home or self-care (01) ==
LOC: ER 19:12
DX: L29.8 Other pruritus (principal); R32 Unspecified urinary incontinence; I10 Essential (primary) hypertension; G89.29 Other chronic pain; F17.200 Nicotine dependence, unspecified, uncomplicated; F12.90 Cannabis use, unspecified, uncomplicated; Z98.890 Other specified postprocedural states; Z59.0 Homelessness; Z56.0 Unemployment, unspecified; Z86.73 Personal history of transient ischemic attack (TIA), and cerebral infarction without residual deficits; Z91.030 Bee allergy status; Z88.8 Allergy status to other drugs, medicaments and biological substances; Z79.82 Long term (current) use of aspirin; Z79.899 Other long term (current) drug therapy
CPT/HCPCS: 99284

== ENCOUNTER 2020-03-05 16:54 | Inpatient (IN) | payer MEDICAID ==
[~2020-03-05] VITALS: Ht 177.8 cm; Wt 100.0 kg
[2020-03-05 17:53] LABS: BASOPHILS % (AUTO) 0.6 % (0-1); EOSINOPHILS # (AUTO) 0.1 X10'3 (0-0.9); EOSINOPHILS % (AUTO) 1.8 % (0-6); HEMATOCRIT 35.9 % (42.0-52.0); HEMOGLOBIN 11.9 g/dl (14.0-17.9); LYMPHOCYTES # (AUTO) 0.9 X10'3 (1.1-4.8); LYMPHOCYTES % (AUTO) 13.1 % (21-51); MEAN CORPUSCULAR HEMOGLOBIN 28.3 PG (27.0-31.0); MEAN CORPUSCULAR HGB CONC 33.2 g/dL (33.0-36.5); MEAN CORPUSCULAR VOLUME 85.1 FL (78-98); MEAN PLATELET VOLUME 7.9 FL (7.4-10.4); MONOCYTES % (AUTO) 14.7 % (2-12); NEUTROPHILS # (AUTO) 4.6 X10'3 (1.8-7.7); NEUTROPHILS % (AUTO) 69.8 % (42-75); PLATELET COUNT 250 X10'3 (140-440); RED BLOOD COUNT 4.22 X10'6 (4.70-6.10); RED CELL DISTRIBUTION WIDTH 17.2 % (11.5-14.5); WHITE BLOOD COUNT 6.5 X10'3 (4.5-11.0)
[2020-03-05 18:03] LABS: PARTIAL THROMBOPLASTIN TIME 32 SECONDS (22-32)
[2020-03-05 18:05] LABS: ALANINE AMINOTRANSFERASE 32 U/L (12-78); ALBUMIN/GLOBULIN RATIO 0.7 (1.1-1.5); ALKALINE PHOSPHATASE 77 IU/L (46-116); ANION GAP 10 (8-16); ASPARTATE AMINO TRANSFERASE 55 U/L (10-37); BILIRUBIN,TOTAL 0.5 MG/DL (0.1-1.0); BLOOD UREA NITROGEN 31 MG/DL (7-18); BUN/CREATININE RATIO 12.8 (5.4-32.0); CALCIUM 8.7 MG/DL (8.5-10.1); CHLORIDE 102 MMOL/L (99-107); CREATININE 2.42 MG/DL (0.60-1.10); GLUCOSE 96 MG/DL (70-104); SODIUM 139 MMOL/L (135-145); TOTAL CARBON DIOXIDE 27.5 MMOL/L (24-32); TOTAL PROTEIN 7.3 G/DL (6.4-8.2); eGFR 27 ML/MIN
--- NOTE | 2020-03-05 18:37 | NUR ---
Pt states he gets his medications from [facility]. He is unable to tell me what he takes. Will investigate further.
[2020-03-05] MEDS ORDERED: ipratropium/albuterol 3ml nebule NEB ONE (19:15)
--- NOTE | 2020-03-05 20:48 | NUR ---
Dr. Castro, Hospitalist is at the bedside with the patient to complete the admission orders. Pt is awaiting admission bed assignment.
[2020-03-05 20:58] LABS: CLARITY,URINE SLIGHTLY CLOUDY (Clear); COLOR,URINE YELLOW (Yellow); GLUCOSE, URINE NEGATIVE (Neg); KETONES,URINE NEGATIVE (Neg); LEUKOCYTE ESTERASE ,URINE NEGATIVE (Neg); NITRITES, URINE NEGATIVE (Neg); OCCULT BLOOD,URINE LARGE (Neg); PROTEIN,URINE 100 mg/dl (Neg); UROBILINOGEN,URINE 0.2 E.U/dL (0.2-1.0)
[2020-03-05] MEDS ORDERED: ondansetron/PF 4mg/2ml inj IV PRN (21:00)
[2020-03-05] MEDS ORDERED: magnesium 4gm in 100ml NS 100 ML IV PRN (21:00)
[2020-03-05] MEDS ORDERED: potassium Cl 20 mEq SR tablet PO PRN ×2 (21:00)
[2020-03-05] MEDS ORDERED: magnesium 2GM in 50ml NS 50 ML IV PRN (21:00)
[2020-03-05] MEDS ORDERED: potassium CL 10mEq/100ml bag 100 ML IV PRN ×2 (21:00)
[2020-03-05] MEDS ORDERED: acetaminophen 325mg tablet PO PRN (21:00)
[2020-03-05 21:02] LABS: URINE AMPHETAMINE SCREEN POSITIVE (Neg); URINE BARBITUATE SCREEN NEGATIVE (Neg); URINE BENZODIAZEPINES SCREEN NEGATIVE (Neg); URINE CANNABINOID SCREEN POSITIVE (Neg); URINE COCAINE SCREEN NEGATIVE (Neg); URINE METHADONE SCREEN NEGATIVE (Neg); URINE OPIATE SCREEN NEGATIVE (Neg); URINE PHENCYCLIDINE SCREEN NEGATIVE (Neg)
--- NOTE | 2020-03-05 21:04 | NUR ---
per Primary RN, pt gets his meds from the RN at the [facility] and pt doesn't know names or doses. The external med hx shows that pt has not picked up any meds for approx 6 months. MD Castro aware and I asked how he would like us to proceed. I let him know we could put in the last known meds and doses but that they may not be current/correct. He asked that we just leave it for now and they can address it in the morning.
[2020-03-05 21:08] LABS: UA COLLECTION TYPE CLN CATCH MIDSTREAM
[2020-03-05 21:09] LABS: BACTERIA,URINE FEW /HPF (Neg); RBC,URINE 50-100 /HPF (0-2); SQUAMOUS EPITHELIAL CELL,UR FEW /LPF (FEW); WBC,URINE 0-4 /HPF (0-4)
[2020-03-05] MEDS ORDERED: aspirin 300mg supp.rect RC ONE (21:10)
[2020-03-05 22:05] VITALS: BP 170/92
[2020-03-05] MEDS: normal saline 1000ml 1,000 ML IV SCH (22:45)
[2020-03-06 04:00] VITALS: BP 160/83
[2020-03-06 06:23] LABS: BASOPHILS % (AUTO) 0.6 % (0-1); EOSINOPHILS # (AUTO) 0.2 X10'3 (0-0.9); EOSINOPHILS % (AUTO) 4.4 % (0-6); HEMATOCRIT 33.3 % (42.0-52.0); LYMPHOCYTES # (AUTO) 0.9 X10'3 (1.1-4.8); LYMPHOCYTES % (AUTO) 15.5 % (21-51); MEAN CORPUSCULAR HEMOGLOBIN 28.5 PG (27.0-31.0); MEAN CORPUSCULAR HGB CONC 33.1 g/dL (33.0-36.5); MEAN CORPUSCULAR VOLUME 86.1 FL (78-98); MEAN PLATELET VOLUME 7.8 FL (7.4-10.4); MONOCYTES # (AUTO) 0.9 X10'3 (0-0.9); MONOCYTES % (AUTO) 16.2 % (2-12); NEUTROPHILS # (AUTO) 3.5 X10'3 (1.8-7.7); NEUTROPHILS % (AUTO) 63.3 % (42-75); PLATELET COUNT 215 X10'3 (140-440); RED BLOOD COUNT 3.86 X10'6 (4.70-6.10); RED CELL DISTRIBUTION WIDTH 17.2 % (11.5-14.5); WHITE BLOOD COUNT 5.5 X10'3 (4.5-11.0)
--- NOTE | 2020-03-06 06:36 | NUR ---
Problems reprioritized. Patient report given, questions answered & plan of care reviewed with Nathalia MCCONNELL.
[2020-03-06 06:40] LABS: ALANINE AMINOTRANSFERASE 27 U/L (12-78); ALBUMIN 2.5 G/DL (3.4-5.0); ALBUMIN/GLOBULIN RATIO 0.7 (1.1-1.5); ALKALINE PHOSPHATASE 64 IU/L (46-116); ANION GAP 6 (8-16); ASPARTATE AMINO TRANSFERASE 43 U/L (10-37); BILIRUBIN,TOTAL 0.6 MG/DL (0.1-1.0); BLOOD UREA NITROGEN 30 MG/DL (7-18); BUN/CREATININE RATIO 13.6 (5.4-32.0); CALCIUM 8.2 MG/DL (8.5-10.1); CHLORIDE 106 MMOL/L (99-107); CHOL/HDL RATIO 3.4 (0.00-4.99); CHOLESTEROL 106 MG/DL (0-200); CREATININE 2.21 MG/DL (0.60-1.10); GLUCOSE 92 MG/DL (70-104); HDL CHOLESTEROL 31 MG/DL (35-60); LDL CHOLESTEROL 57 MG/DL (50-100); MAGNESIUM 1.8 MG/DL (1.5-2.4); POTASSIUM 4.2 MMOL/L (3.5-5.1); SODIUM 140 MMOL/L (135-145); TOTAL PROTEIN 6.2 G/DL (6.4-8.2); TRIGLYCERIDES 75 MG/DL (20-135); eGFR 30 ML/MIN
--- NOTE | 2020-03-06 06:41 | NUR ---
Patient in room CLIFF 350. I have received report from Jade MCCONNELL and had the opportunity to ask questions and assume patient care.
[2020-03-06] MEDS: normal saline 1000ml 1,000 ML IV SCH ×2 (06:58→21:41)
[2020-03-06] MEDS: aspirin 81mg tablet.DR PO SCH (07:42)
[2020-03-06] MEDS: heparin, porcine 5000 units/ml vial SQ SCH ×2 (07:43→21:45)
[2020-03-06 08:00] VITALS: BP 186/111
[2020-03-06] MEDS: K and/or MAG REPLACEMENT MC SCH ×2 (08:00→20:00)
--- NOTE | 2020-03-06 08:52 | NUR ---
PAGER ID: [phone] MESSAGE: Patient Fish Haynes needs some Ativan or something ordered for his MRI for rule cva. [facility] [phone] (107 character message out of a maximum of [phone])
[2020-03-06] MEDS ORDERED: NO HOME MEDS (10:26)
[2020-03-06 11:00] VITALS: BP 179/98
[2020-03-06] MEDS ORDERED: clopidogrel 75mg tablet PO ONE (12:10)
[2020-03-06] MEDS ORDERED: LORazepam 2 mg/ml vial IV ONE ×2 (12:10→15:45)
[2020-03-06] MEDS: nystatin 15 GM powder TP SCH ×2 (12:44→21:48)
[2020-03-06 16:00] VITALS: BP 191/111
--- NOTE | 2020-03-06 17:01 | NUR ---
I paged Dr. Aden about the possible ativan allergy and will put it in the allergy list.
--- NOTE | 2020-03-06 17:42 | NUR ---
PAGER ID: [phone] MESSAGE: Dr. Aden patient Dakotah Mustafa could not go through with MRI again and started vomiting. Also BP high but he is rule out stroke 191/111. Nathalia [phone]
--- NOTE | 2020-03-06 18:40 | NUR ---
Problems reprioritized. Patient report given, questions answered & plan of care reviewed with Joselin Vogel and will Mac.
[2020-03-06 20:00] VITALS: BP 182/101
[2020-03-07] VITALS: BP 174/102
--- NOTE | 2020-03-07 00:20 | NUR ---
reviewed and agree with SRN assessment
[2020-03-07 04:00] VITALS: BP 182/102
--- NOTE | 2020-03-07 04:00 | NUR ---
patient c/o pressure on his bladder, condom cath full of urine. Bladder scanned patient for 624mL. Called MD for order for FC.
[2020-03-07] MEDS ORDERED: LIDOcaine 2% 10ml TOPICAL JELLY (Urojet) TP ONE (04:10)
--- NOTE | 2020-03-07 05:00 | NUR ---
Placed FC per order. Patient tolerated well. Urojet used prior to insertion. Patient slept through placement. Dark cloudy urine observed with some sediment.
--- NOTE | 2020-03-07 06:00 | NUR ---
Problems reprioritized. Patient report given, questions answered & plan of care reviewed with Sofia MCCONNELL.
--- NOTE | 2020-03-07 06:10 | NUR ---
RECEIVED REPORT FROM ENEDINA FOWLER
[2020-03-07 06:16] LABS: BASOPHILS % (AUTO) 0.4 % (0-1); EOSINOPHILS # (AUTO) 0.3 X10'3 (0-0.9); EOSINOPHILS % (AUTO) 5.1 % (0-6); HEMOGLOBIN 10.4 g/dl (14.0-17.9); LYMPHOCYTES # (AUTO) 0.8 X10'3 (1.1-4.8); LYMPHOCYTES % (AUTO) 12.9 % (21-51); MEAN CORPUSCULAR HEMOGLOBIN 28.7 PG (27.0-31.0); MEAN CORPUSCULAR HGB CONC 33.6 g/dL (33.0-36.5); MEAN CORPUSCULAR VOLUME 85.6 FL (78-98); MONOCYTES # (AUTO) 0.7 X10'3 (0-0.9); MONOCYTES % (AUTO) 12.6 % (2-12); PLATELET COUNT 195 X10'3 (140-440); RED BLOOD COUNT 3.62 X10'6 (4.70-6.10); RED CELL DISTRIBUTION WIDTH 16.6 % (11.5-14.5); WHITE BLOOD COUNT 5.8 X10'3 (4.5-11.0)
[2020-03-07 06:35] LABS: ALANINE AMINOTRANSFERASE 27 U/L (12-78); ALBUMIN 2.5 G/DL (3.4-5.0); ALBUMIN/GLOBULIN RATIO 0.7 (1.1-1.5); ALKALINE PHOSPHATASE 62 IU/L (46-116); ANION GAP 7 (8-16); ASPARTATE AMINO TRANSFERASE 41 U/L (10-37); BILIRUBIN,TOTAL 0.4 MG/DL (0.1-1.0); BLOOD UREA NITROGEN 29 MG/DL (7-18); BUN/CREATININE RATIO 15.2 (5.4-32.0); CALCIUM 8.3 MG/DL (8.5-10.1); CHLORIDE 106 MMOL/L (99-107); CREATININE 1.91 MG/DL (0.60-1.10); GLUCOSE 90 MG/DL (70-104); MAGNESIUM 1.7 MG/DL (1.5-2.4); POTASSIUM 4.3 MMOL/L (3.5-5.1); SODIUM 139 MMOL/L (135-145); TOTAL CARBON DIOXIDE 26.4 MMOL/L (24-32); TOTAL PROTEIN 6.3 G/DL (6.4-8.2); eGFR 36 ML/MIN
[2020-03-07 07:00] VITALS: BP 176/110
[2020-03-07] MEDS: K and/or MAG REPLACEMENT MC SCH ×2 (07:35→20:00)
[2020-03-07] MEDS: aspirin 81mg tablet.DR PO SCH (07:40)
[2020-03-07] MEDS: heparin, porcine 5000 units/ml vial SQ SCH ×2 (07:42→20:17)
[2020-03-07] MEDS: nystatin 15 GM powder TP SCH ×3 (07:45→20:17)
[2020-03-07] MEDS: normal saline 1000ml 1,000 ML IV SCH ×2 (07:46→12:58)
--- NOTE | 2020-03-07 07:51 | NUR ---
SCANNER ON COMPUTER IS NOT WORKING. CHECKED ALL MEDS PRIOR TO ADMINISTRATION. CONTINUE TO MONITOR.
[2020-03-07 11:00] VITALS: BP 193/109
[2020-03-07] MEDS: atorvastatin 20mg tablet PO SCH (13:16)
[2020-03-07] MEDS: metoprolol succinate 25mg (24-HOUR) SR. Tablet PO SCH (13:20)
[2020-03-07] MEDS: ipratropium/albuterol 3ml nebule NEB PRN (15:51)
[2020-03-07 16:00] VITALS: BP 201/115
--- NOTE | 2020-03-07 16:56 | NUR ---
sent a page to hospitalist about pt elevated blood pressure of 201/115 then took another bp on leg and bp was 191/107, asking if hospitalist would be able to give nursing staff a prn blood pressure medication, no new orders at this time, continue to monitor
[2020-03-07 18:00] VITALS: BP 208/105
[2020-03-07] MEDS: hydrALAZINE 20mg/ml inj. IV PRN (18:02)
--- NOTE | 2020-03-07 18:17 | NUR ---
GAVE REPORT TO ENEDINA YANG
--- NOTE | 2020-03-07 19:40 | NUR ---
Patient in room CLIFF 350. I have received report from Sofia MCCONNELL and had the opportunity to ask questions and assume patient care.
[2020-03-07] MEDS: HYDROcodone/acetaminophen 5mg/325mg tablet PO PRN (22:55)
[2020-03-08] VITALS: BP 181/103
[2020-03-08] MEDS: hydrALAZINE 20mg/ml inj. IV PRN ×2 (00:13→07:51)
--- NOTE | 2020-03-08 00:20 | NUR ---
HYDROLAZINE GIVEN IVP FOR ELEVATED B/P OF 181/103. WILL MONITOR B/P
[2020-03-08 04:00] VITALS: BP 172/89
[2020-03-08 05:55] LABS: BASOPHILS % (AUTO) 0.2 % (0-1); EOSINOPHILS # (AUTO) 0.1 X10'3 (0-0.9); EOSINOPHILS % (AUTO) 1.3 % (0-6); HEMATOCRIT 34.4 % (42.0-52.0); HEMOGLOBIN 11.4 g/dl (14.0-17.9); LYMPHOCYTES # (AUTO) 0.7 X10'3 (1.1-4.8); LYMPHOCYTES % (AUTO) 7.1 % (21-51); MEAN CORPUSCULAR HEMOGLOBIN 28.1 PG (27.0-31.0); MEAN CORPUSCULAR HGB CONC 33.2 g/dL (33.0-36.5); MEAN CORPUSCULAR VOLUME 84.7 FL (78-98); MONOCYTES # (AUTO) 1.2 X10'3 (0-0.9); MONOCYTES % (AUTO) 12.2 % (2-12); NEUTROPHILS # (AUTO) 7.6 X10'3 (1.8-7.7); NEUTROPHILS % (AUTO) 79.2 % (42-75); PLATELET COUNT 209 X10'3 (140-440); RED BLOOD COUNT 4.06 X10'6 (4.70-6.10); RED CELL DISTRIBUTION WIDTH 16.7 % (11.5-14.5); WHITE BLOOD COUNT 9.6 X10'3 (4.5-11.0)
--- NOTE | 2020-03-08 06:15 | NUR ---
RECEIVED REPORT FROM ENEDINA YNAG
--- NOTE | 2020-03-08 06:29 | NUR ---
Problems reprioritized. Patient report given, questions answered & plan of care reviewed with AMADO MCCONNELL.
[2020-03-08 06:30] LABS: ALANINE AMINOTRANSFERASE 25 U/L (12-78); ALBUMIN 2.7 G/DL (3.4-5.0); ALBUMIN/GLOBULIN RATIO 0.6 (1.1-1.5); ALKALINE PHOSPHATASE 64 IU/L (46-116); ANION GAP 9 (8-16); ASPARTATE AMINO TRANSFERASE 34 U/L (10-37); BILIRUBIN,TOTAL 0.8 MG/DL (0.1-1.0); BLOOD UREA NITROGEN 25 MG/DL (7-18); BUN/CREATININE RATIO 14.7 (5.4-32.0); CALCIUM 8.5 MG/DL (8.5-10.1); CHLORIDE 102 MMOL/L (99-107); GLUCOSE 87 MG/DL (70-104); MAGNESIUM 1.5 MG/DL (1.5-2.4); SODIUM 135 MMOL/L (135-145); TOTAL CARBON DIOXIDE 24.1 MMOL/L (24-32); eGFR 41 ML/MIN
[2020-03-08] MEDS: aspirin 81mg tablet.DR PO SCH (07:49)
[2020-03-08] MEDS: metoprolol succinate 25mg (24-HOUR) SR. Tablet PO SCH (07:50)
[2020-03-08] MEDS: heparin, porcine 5000 units/ml vial SQ SCH ×2 (07:51→21:32)
[2020-03-08] MEDS: atorvastatin 20mg tablet PO SCH (07:54)
[2020-03-08] MEDS: K and/or MAG REPLACEMENT MC SCH ×2 (08:00→20:00)
[2020-03-08] MEDS: nystatin 15 GM powder TP SCH ×3 (08:06→21:22)
[2020-03-08] MEDS: HYDROcodone/acetaminophen 10/325mg tab PO PRN ×2 (08:10→21:25)
[2020-03-08 08:52] VITALS: BP 182/106
[2020-03-08] MEDS: normal saline 1000ml 1,000 ML IV SCH ×3 (08:58→18:58)
[2020-03-08] MEDS: ipratropium/albuterol 3ml nebule NEB PRN ×2 (09:18→15:44)
[2020-03-08 14:07] VITALS: BP 165/100
[2020-03-08] MEDS: HYDROcodone/acetaminophen 5mg/325mg tablet PO PRN (16:01)
--- NOTE | 2020-03-08 18:40 | NUR ---
Patient in room CLIFF 350. I have received report from Sofia MCCONNELL and had the opportunity to ask questions and assume patient care.
--- NOTE | 2020-03-08 18:40 | NUR ---
gave report to rowdy jara
[2020-03-08 20:00] VITALS: BP 172/107
[2020-03-09] VITALS (7 sets, daily range): BP systolic 167–180; BP diastolic 93–108
[2020-03-09] MEDS: HYDROcodone/acetaminophen 10/325mg tab PO PRN ×3 (01:35→20:51)
[2020-03-09] MEDS: normal saline 1000ml 1,000 ML IV SCH ×2 (04:58→10:04)
[2020-03-09 05:02] LABS: BASOPHILS % (AUTO) 0.2 % (0-1); EOSINOPHILS # (AUTO) 0.2 X10'3 (0-0.9); EOSINOPHILS % (AUTO) 3.6 % (0-6); HEMOGLOBIN 10.2 g/dl (14.0-17.9); LYMPHOCYTES # (AUTO) 0.7 X10'3 (1.1-4.8); LYMPHOCYTES % (AUTO) 11.7 % (21-51); MEAN CORPUSCULAR HEMOGLOBIN 28.2 PG (27.0-31.0); MEAN CORPUSCULAR HGB CONC 32.9 g/dL (33.0-36.5); MEAN CORPUSCULAR VOLUME 85.6 FL (78-98); MEAN PLATELET VOLUME 7.9 FL (7.4-10.4); MONOCYTES # (AUTO) 0.8 X10'3 (0-0.9); MONOCYTES % (AUTO) 12.5 % (2-12); NEUTROPHILS # (AUTO) 4.6 X10'3 (1.8-7.7); PLATELET COUNT 192 X10'3 (140-440); RED BLOOD COUNT 3.62 X10'6 (4.70-6.10); RED CELL DISTRIBUTION WIDTH 16.9 % (11.5-14.5); WHITE BLOOD COUNT 6.4 X10'3 (4.5-11.0)
[2020-03-09 05:17] LABS: ALANINE AMINOTRANSFERASE 22 U/L (12-78); ALBUMIN 2.3 G/DL (3.4-5.0); ALBUMIN/GLOBULIN RATIO 0.6 (1.1-1.5); ALKALINE PHOSPHATASE 54 IU/L (46-116); ANION GAP 7 (8-16); ASPARTATE AMINO TRANSFERASE 24 U/L (10-37); BILIRUBIN,TOTAL 0.4 MG/DL (0.1-1.0); BLOOD UREA NITROGEN 27 MG/DL (7-18); BUN/CREATININE RATIO 15.1 (5.4-32.0); CALCIUM 8.2 MG/DL (8.5-10.1); CHLORIDE 103 MMOL/L (99-107); CREATININE 1.79 MG/DL (0.60-1.10); GLUCOSE 93 MG/DL (70-104); MAGNESIUM 1.6 MG/DL (1.5-2.4); POTASSIUM 4.1 MMOL/L (3.5-5.1); SODIUM 135 MMOL/L (135-145); TOTAL CARBON DIOXIDE 24.6 MMOL/L (24-32); TOTAL PROTEIN 6.3 G/DL (6.4-8.2); eGFR 39 ML/MIN
--- NOTE | 2020-03-09 06:40 | NUR ---
Problems reprioritized. Patient report given, questions answered & plan of care reviewed with Kerrie MCCONNELL and assistant professor of nursing.
--- NOTE | 2020-03-09 06:43 | NUR ---
Received report from Kristina MCCONNELL
[2020-03-09] MEDS: K and/or MAG REPLACEMENT MC SCH ×2 (08:00→20:00)
[2020-03-09] MEDS: metoprolol succinate 25mg (24-HOUR) SR. Tablet PO SCH (08:37)
[2020-03-09] MEDS: atorvastatin 20mg tablet PO SCH (08:37)
[2020-03-09] MEDS: aspirin 81mg tablet.DR PO SCH (08:37)
[2020-03-09] MEDS: heparin, porcine 5000 units/ml vial SQ SCH ×2 (08:37→20:53)
[2020-03-09] MEDS: nystatin 15 GM powder TP SCH ×3 (08:40→21:07)
[2020-03-09] MEDS: hydrALAZINE 20mg/ml inj. IV PRN (11:42)
--- NOTE | 2020-03-09 12:00 | NUR ---
Patient blood pressure has been extremely high called dr. Aden to change hydralazine orders to 160/90. She stated that she will add a new medication
[2020-03-09] MEDS ORDERED: furosemide 20 MG/2 ML vial IV ONE (13:10)
[2020-03-09] MEDS: ipratropium/albuterol 3ml nebule NEB PRN (13:31)
[2020-03-09] MEDS ORDERED: amLODIPine 5mg tablet PO SCH (13:45)
--- NOTE | 2020-03-09 18:13 | NUR ---
Patient presented to ED with acute CVA, left sided weakness and speech slurred. Has been seen by speech therapy on 03/08 and 03/09; ST recommends pt has feeder and recommends mechanical soft diet grind all. Per recent MD note patient still with residual right sided weakness. Last BM 03/09. PO fluctuates, ate 100% of first meals then 25-49% average for two days, now appetite appears to be improving with 75-100% PO today, average PO of 50-75%. With improving appetite no nutrition intervention needed at this time. Will continue to follow. Recommend: 1. continue mechanical soft diet grind all per TELEVISION ANALYZER recs 2. monitor need for oral nutrition supplement 3. bowel care as needed 4. weight per rx Addendum: 03/09/20 at [address] Amended: Links added.
[2020-03-09] MEDS ORDERED: cloNIDine 0.1 mg tablet PO ONE (18:20)
[2020-03-09] MEDS ORDERED: amLODIPine 5mg tablet PO ONE (18:20)
--- NOTE | 2020-03-09 18:35 | NUR ---
Patient in room CLIFF 350. I have received report from Kerrie MCCONNELL and had the opportunity to ask questions and assume patient care.
[2020-03-09] MEDS: docusate sod 100mg capsule PO PRN (21:04)
[2020-03-10] VITALS: BP 148/87
[2020-03-10] MEDS: HYDROcodone/acetaminophen 10/325mg tab PO PRN ×3 (03:14→19:48)
--- NOTE | 2020-03-10 06:15 | NUR ---
Problems reprioritized. Patient report given, questions answered & plan of care reviewed with Nathalia MCCONNELL.
--- NOTE | 2020-03-10 06:30 | NUR ---
Patient in room CLIFF 350. I have received report from Verenice MCCONNELL and had the opportunity to ask questions and assume patient care.
[2020-03-10 06:34] LABS: BASOPHILS % (AUTO) 0.7 % (0-1); EOSINOPHILS # (AUTO) 0.3 X10'3 (0-0.9); EOSINOPHILS % (AUTO) 6.2 % (0-6); HEMATOCRIT 32.1 % (42.0-52.0); HEMOGLOBIN 10.6 g/dl (14.0-17.9); LYMPHOCYTES # (AUTO) 0.8 X10'3 (1.1-4.8); LYMPHOCYTES % (AUTO) 16.9 % (21-51); MEAN CORPUSCULAR HGB CONC 33.1 g/dL (33.0-36.5); MEAN CORPUSCULAR VOLUME 84.5 FL (78-98); MONOCYTES # (AUTO) 0.7 X10'3 (0-0.9); MONOCYTES % (AUTO) 14.9 % (2-12); NEUTROPHILS % (AUTO) 61.3 % (42-75); PLATELET COUNT 233 X10'3 (140-440); RED CELL DISTRIBUTION WIDTH 16.9 % (11.5-14.5); WHITE BLOOD COUNT 4.8 X10'3 (4.5-11.0)
[2020-03-10 06:55] LABS: ALANINE AMINOTRANSFERASE 21 U/L (12-78); ALBUMIN 2.5 G/DL (3.4-5.0); ALBUMIN/GLOBULIN RATIO 0.6 (1.1-1.5); ALKALINE PHOSPHATASE 54 IU/L (46-116); ANION GAP 8 (8-16); ASPARTATE AMINO TRANSFERASE 20 U/L (10-37); BILIRUBIN,TOTAL 0.4 MG/DL (0.1-1.0); BLOOD UREA NITROGEN 28 MG/DL (7-18); BUN/CREATININE RATIO 14.8 (5.4-32.0); CALCIUM 8.7 MG/DL (8.5-10.1); CHLORIDE 104 MMOL/L (99-107); CREATININE 1.89 MG/DL (0.60-1.10); GLUCOSE 100 MG/DL (70-104); MAGNESIUM 1.6 MG/DL (1.5-2.4); POTASSIUM 4.3 MMOL/L (3.5-5.1); SODIUM 138 MMOL/L (135-145); TOTAL CARBON DIOXIDE 26.1 MMOL/L (24-32); TOTAL PROTEIN 6.8 G/DL (6.4-8.2); eGFR 36 ML/MIN
[2020-03-10 08:00] VITALS: BP 171/103
[2020-03-10] MEDS: K and/or MAG REPLACEMENT MC SCH ×2 (08:00→20:00)
[2020-03-10] MEDS: atorvastatin 20mg tablet PO SCH (08:54)
[2020-03-10] MEDS: aspirin 81mg tablet.DR PO SCH (08:54)
[2020-03-10] MEDS: amLODIPine 5mg tablet PO SCH (08:54)
[2020-03-10] MEDS: metoprolol succinate 25mg (24-HOUR) SR. Tablet PO SCH (08:55)
[2020-03-10] MEDS: heparin, porcine 5000 units/ml vial SQ SCH ×2 (08:57→19:47)
[2020-03-10] MEDS: nystatin 15 GM powder TP SCH ×3 (08:58→19:47)
[2020-03-10 11:29] VITALS: BP 186/111
[2020-03-10] MEDS: methylPREDNISolone sod succ/PF 40mg inj. IV SCH ×2 (12:18→19:46)
[2020-03-10] MEDS: hydrALAZINE 20mg/ml inj. IV PRN (15:19)
[2020-03-10 15:30] VITALS: BP 161/98
[2020-03-10] MEDS: ipratropium/albuterol 3ml nebule NEB SCH ×3 (15:51→23:10)
--- NOTE | 2020-03-10 18:20 | NUR ---
Patient in room CLIFF 350. I have received report from Nathalia MCCONNELL and had the opportunity to ask questions and assume patient care.
--- NOTE | 2020-03-10 18:33 | NUR ---
Problems reprioritized. Patient report given, questions answered & plan of care reviewed with Gavi MCCONNELL.
[2020-03-10 20:00] VITALS: BP 183/115
[2020-03-10 23:00] VITALS: BP 161/96
[2020-03-11] MEDS: ipratropium/albuterol 3ml nebule NEB SCH ×6 (02:59→22:37)
[2020-03-11 05:13] VITALS: BP 157/89
--- NOTE | 2020-03-11 06:40 | NUR ---
Patient in room CLIFF 350. I have received report from Gavi MCCONENLL and had the opportunity to ask questions and assume patient care.
[2020-03-11 07:00] VITALS: BP 179/95
[2020-03-11] MEDS: aspirin 81mg tablet.DR PO SCH (07:41)
[2020-03-11] MEDS: metoprolol succinate 25mg (24-HOUR) SR. Tablet PO SCH (07:42)
[2020-03-11] MEDS: methylPREDNISolone sod succ/PF 40mg inj. IV SCH ×2 (07:42→19:44)
[2020-03-11] MEDS: amLODIPine 5mg tablet PO SCH (07:42)
[2020-03-11] MEDS: atorvastatin 20mg tablet PO SCH (07:42)
[2020-03-11] MEDS: heparin, porcine 5000 units/ml vial SQ SCH ×2 (07:43→19:45)
[2020-03-11] MEDS: HYDROcodone/acetaminophen 10/325mg tab PO PRN ×3 (07:46→17:53)
[2020-03-11] MEDS: K and/or MAG REPLACEMENT MC SCH ×2 (08:00→19:50)
[2020-03-11] MEDS: nystatin 15 GM powder TP SCH ×3 (08:00→19:48)
[2020-03-11] MEDS ORDERED: magnesium hydroxide 30ml (MOM) UD suspension PO ONE (11:15)
[2020-03-11 12:00] VITALS: BP 186/111
[2020-03-11] MEDS: docusate sod 100mg capsule PO PRN (12:48)
[2020-03-11 12:51] VITALS: BP 138/80
[2020-03-11 16:00] VITALS: BP 130/70
--- NOTE | 2020-03-11 17:53 | NUR ---
I pagelouise Aden regarding patiwe Addendum: 03/11/20 at 1754 by Lesa Lim RN regarding patient feeling dizzy and light headed, patient vitals are stable.
--- NOTE | 2020-03-11 18:40 | NUR ---
Problems reprioritized. Patient report given, questions answered & plan of care reviewed with Karen MCCONNELL.
--- NOTE | 2020-03-11 18:45 | NUR ---
Received report from primary care nurse Nathalia MCCONNELL and student RN Manjinder. Assumed patient care Patient is awake on room air. In no apparent distress. Call light and items of frequent use within reach. Will continue to monitor for changes.
[2020-03-11 19:00] VITALS: BP 151/88
[2020-03-12] VITALS: BP 140/89
[2020-03-12] MEDS: ipratropium/albuterol 3ml nebule NEB SCH ×6 (02:51→23:00)
--- NOTE | 2020-03-12 03:00 | NUR ---
ordered to replace FC
[2020-03-12] MEDS ORDERED: LIDOcaine 2% 10ml TOPICAL JELLY (Urojet) MM ONE (03:05)
--- NOTE | 2020-03-12 04:26 | NUR ---
Patient asked this nurse to "[place] Addendum: 03/12/20 at 0427 by Karen Mazariegos RN Amended: Links added.
--- NOTE | 2020-03-12 04:26 | NUR ---
Patient asked this nurse to "please let me try again." Addendum: 03/12/20 at 0427 by Karen Mazariegos RN Amended: Links added.
--- NOTE | 2020-03-12 06:18 | NUR ---
Reported off to Kimber MCCONNELL. Patient is resting with relaxed and unlabored respieron room air. In no apparent distress. Call light and items of frequent use within [facility]. Addendum: 03/12/20 at 0618 by Karen Mazariegos RN Reported off to Kimber MCCONNELL. Patient is resting with relaxed and unlabored respirations on room air. In no apparent distress. Call light and items of frequent use within reach.
[2020-03-12 08:00] VITALS: BP 160/95
[2020-03-12] MEDS: K and/or MAG REPLACEMENT MC SCH ×2 (08:00→20:00)
[2020-03-12] MEDS: amLODIPine 5mg tablet PO SCH (08:24)
[2020-03-12] MEDS: aspirin 81mg tablet.DR PO SCH (08:24)
[2020-03-12] MEDS: nystatin 15 GM powder TP SCH ×3 (08:25→20:46)
[2020-03-12] MEDS: atorvastatin 20mg tablet PO SCH (08:25)
[2020-03-12] MEDS: metoprolol succinate 25mg (24-HOUR) SR. Tablet PO SCH (08:25)
[2020-03-12] MEDS: methylPREDNISolone sod succ/PF 40mg inj. IV SCH (08:25)
[2020-03-12] MEDS: heparin, porcine 5000 units/ml vial SQ SCH ×2 (08:25→20:46)
[2020-03-12] MEDS: HYDROcodone/acetaminophen 10/325mg tab PO PRN ×3 (08:28→20:46)
[2020-03-12 12:00] VITALS: BP 168/94
[2020-03-12 18:00] VITALS: BP 150/84
--- NOTE | 2020-03-12 18:32 | NUR ---
Patient in room CLIFF 350. I have received report from Kimber MCCONNELL and had the opportunity to ask questions and assume patient care.
[2020-03-12 19:00] VITALS: BP 140/78
[2020-03-13] VITALS: BP 148/88
[2020-03-13] MEDS: ipratropium/albuterol 3ml nebule NEB SCH ×6 (02:20→23:15)
--- NOTE | 2020-03-13 06:10 | NUR ---
Patient in room CLIFF 350. I have received report from YAN MCCONNELL and had the opportunity to ask questions and assume patient care.
--- NOTE | 2020-03-13 06:17 | NUR ---
Problems reprioritized. Patient report given, questions answered & plan of care reviewed with Merrick MCCONNELL.
[2020-03-13] MEDS: HYDROcodone/acetaminophen 10/325mg tab PO PRN (06:37)
[2020-03-13 08:00] VITALS: BP 143/94
[2020-03-13] MEDS: K and/or MAG REPLACEMENT MC SCH ×2 (08:00→19:53)
[2020-03-13] MEDS: heparin, porcine 5000 units/ml vial SQ SCH ×2 (08:33→20:27)
[2020-03-13] MEDS: aspirin 81mg tablet.DR PO SCH (08:33)
[2020-03-13] MEDS: amLODIPine 5mg tablet PO SCH (08:33)
[2020-03-13] MEDS: atorvastatin 20mg tablet PO SCH (08:33)
[2020-03-13] MEDS: nystatin 15 GM powder TP SCH ×3 (08:33→20:27)
[2020-03-13] MEDS: metoprolol succinate 25mg (24-HOUR) SR. Tablet PO SCH (08:33)
[2020-03-13 08:35] LABS: ALBUMIN 2.8 G/DL (3.4-5.0); ANION GAP 6 (8-16); BLOOD UREA NITROGEN 61 MG/DL (7-18); BUN/CREATININE RATIO 28.8 (5.4-32.0); CALCIUM 8.2 MG/DL (8.5-10.1); CHLORIDE 102 MMOL/L (99-107); CREATININE 2.12 MG/DL (0.60-1.10); GLUCOSE 107 MG/DL (70-104); POTASSIUM 4.8 MMOL/L (3.5-5.1); SODIUM 134 MMOL/L (135-145); TOTAL CARBON DIOXIDE 25.6 MMOL/L (24-32); eGFR 32 ML/MIN
[2020-03-13] MEDS: docusate sod 100mg capsule PO PRN (08:38)
[2020-03-13 11:00] VITALS: BP 141/84
--- NOTE | 2020-03-13 12:43 | NUR ---
PAGER ID: [phone] MESSAGE: MADISON [phone] RE: KWAME 350B DC'D OLD IV, IS OK TO LEAVE OUT? NEEDS MOM NO BM 03/07.
--- NOTE | 2020-03-13 14:56 | NUR ---
PAGER ID: [phone] MESSAGE: MADISON [phone] RE: KWAME 350B, DC OUTDATED, IS IT OK TO LEAVE OUT?
[2020-03-13 18:00] VITALS: BP 156/90
--- NOTE | 2020-03-13 18:00 | NUR ---
Problems reprioritized. Patient report given, questions answered & plan of care reviewed with YAN MCCONNELL.
--- NOTE | 2020-03-13 18:21 | NUR ---
Patient in room CLIFF 350. I have received report from Merrick MCCONNELL and had the opportunity to ask questions and assume patient care.
[2020-03-13] MEDS: magnesium hydroxide 30ml (MOM) UD suspension PO PRN (20:27)
[2020-03-14] VITALS: BP 153/90
--- NOTE | 2020-03-14 02:19 | NUR ---
Patient complaining of left arm pain where his IV previously was. Area is red, hard, and warm to the touch. Patient does not have a fever, temp is 97.6. States that the pain started a couple of hours ago. Warm compress applied to the area.
[2020-03-14] MEDS: ipratropium/albuterol 3ml nebule NEB SCH ×6 (02:50→23:00)
[2020-03-14] MEDS: cephalexin 500mg capsule PO SCH ×4 (03:16→19:31)
[2020-03-14 05:07] LABS: BASOPHILS % (AUTO) 0 % (0-1); EOSINOPHILS % (AUTO) 0.2 % (0-6); HEMATOCRIT 35.3 % (42.0-52.0); HEMOGLOBIN 11.5 g/dl (14.0-17.9); LYMPHOCYTES # (AUTO) 0.9 X10'3 (1.1-4.8); LYMPHOCYTES % (AUTO) 12.5 % (21-51); MEAN CORPUSCULAR HEMOGLOBIN 27.7 PG (27.0-31.0); MEAN CORPUSCULAR HGB CONC 32.7 g/dL (33.0-36.5); MEAN CORPUSCULAR VOLUME 84.8 FL (78-98); MEAN PLATELET VOLUME 8.1 FL (7.4-10.4); MONOCYTES # (AUTO) 1.2 X10'3 (0-0.9); MONOCYTES % (AUTO) 16.3 % (2-12); NEUTROPHILS # (AUTO) 5.4 X10'3 (1.8-7.7); PLATELET COUNT 254 X10'3 (140-440); RED BLOOD COUNT 4.16 X10'6 (4.70-6.10); RED CELL DISTRIBUTION WIDTH 16.7 % (11.5-14.5); WHITE BLOOD COUNT 7.6 X10'3 (4.5-11.0)
[2020-03-14] MEDS: HYDROcodone/acetaminophen 10/325mg tab PO PRN ×4 (05:27→23:42)
--- NOTE | 2020-03-14 06:27 | NUR ---
Problems reprioritized. Patient report given, questions answered & plan of care reviewed with Kimber MCCONNELL.
[2020-03-14 07:00] VITALS: BP 156/90
[2020-03-14 07:19] LABS: TOTAL CELLS COUNTED 100
[2020-03-14 07:20] LABS: ANISOCYTOSIS 1+; PLATELET ESTIMATE NORMAL; POLYCHROMASIA 1+
[2020-03-14] MEDS: nystatin 15 GM powder TP SCH ×3 (08:00→20:31)
[2020-03-14] MEDS: K and/or MAG REPLACEMENT MC SCH ×2 (08:00→19:32)
[2020-03-14] MEDS: metoprolol succinate 25mg (24-HOUR) SR. Tablet PO SCH (08:18)
[2020-03-14] MEDS: atorvastatin 20mg tablet PO SCH (08:18)
[2020-03-14] MEDS: amLODIPine 5mg tablet PO SCH (08:18)
[2020-03-14] MEDS: aspirin 81mg tablet.DR PO SCH (08:18)
[2020-03-14] MEDS: heparin, porcine 5000 units/ml vial SQ SCH ×2 (08:19→19:32)
[2020-03-14 11:00] VITALS: BP 145/75
--- NOTE | 2020-03-14 16:50 | NUR ---
Reassessment: Pt PO 75-100% avg meals meeting needs. LBM today 03/14 per RN; prior LBM 03/07; received PRN colace/MoM 03/13. No nutrition concerns at this time. Will continue to monitor. Recommend: 1. continue mechanical soft diet grind all per [employer] recs 2. routine bowel care 3. weight per rx Addendum: 03/14/20 at [address] Amended: Links added.
--- NOTE | 2020-03-14 18:28 | NUR ---
PATIENT REPORT RECEIVED FROM CHRISTINA MARROQUIN PATIENT CARE.
[2020-03-14] MEDS: lactobacillus rhamnosus 10,000 MMU CELLS/CAPSULE PO SCH (19:32)
[2020-03-14 20:00] VITALS: BP 158/98
[2020-03-15] VITALS: BP 161/90
[2020-03-15] MEDS: cephalexin 500mg capsule PO SCH ×4 (01:47→19:47)
[2020-03-15] MEDS: ipratropium/albuterol 3ml nebule NEB SCH ×6 (02:44→23:00)
--- NOTE | 2020-03-15 06:26 | NUR ---
Problems reprioritized. Patient report given, questions answered & plan of care reviewed with Kimber MCCONNELL.
[2020-03-15] MEDS: amLODIPine 5mg tablet PO SCH (07:28)
[2020-03-15] MEDS: aspirin 81mg tablet.DR PO SCH (07:28)
[2020-03-15] MEDS: HYDROcodone/acetaminophen 10/325mg tab PO PRN ×2 (07:28→14:30)
[2020-03-15] MEDS: lactobacillus rhamnosus 10,000 MMU CELLS/CAPSULE PO SCH ×2 (07:28→19:47)
[2020-03-15] MEDS: heparin, porcine 5000 units/ml vial SQ SCH (07:29)
[2020-03-15] MEDS: nystatin 15 GM powder TP SCH ×3 (07:29→21:00)
[2020-03-15] MEDS: metoprolol succinate 25mg (24-HOUR) SR. Tablet PO SCH (07:29)
[2020-03-15] MEDS: atorvastatin 20mg tablet PO SCH (07:29)
[2020-03-15 08:00] VITALS: BP 139/82
[2020-03-15] MEDS: K and/or MAG REPLACEMENT MC SCH ×2 (08:00→20:00)
[2020-03-15 11:00] VITALS: BP 133/79
[2020-03-15 12:42] LABS: BASOPHILS % (AUTO) 0.1 % (0-1); EOSINOPHILS # (AUTO) 0.1 X10'3 (0-0.9); EOSINOPHILS % (AUTO) 1.1 % (0-6); HEMATOCRIT 34.7 % (42.0-52.0); HEMOGLOBIN 11.6 g/dl (14.0-17.9); LYMPHOCYTES # (AUTO) 0.5 X10'3 (1.1-4.8); LYMPHOCYTES % (AUTO) 7.3 % (21-51); MEAN CORPUSCULAR HEMOGLOBIN 28.2 PG (27.0-31.0); MEAN CORPUSCULAR HGB CONC 33.2 g/dL (33.0-36.5); MEAN CORPUSCULAR VOLUME 84.7 FL (78-98); MEAN PLATELET VOLUME 7.8 FL (7.4-10.4); MONOCYTES # (AUTO) 0.8 X10'3 (0-0.9); MONOCYTES % (AUTO) 10.2 % (2-12); NEUTROPHILS # (AUTO) 6.1 X10'3 (1.8-7.7); NEUTROPHILS % (AUTO) 81.3 % (42-75); PLATELET COUNT 247 X10'3 (140-440); WHITE BLOOD COUNT 7.5 X10'3 (4.5-11.0)
[2020-03-15 12:47] LABS: ALANINE AMINOTRANSFERASE 29 U/L (12-78); ALBUMIN 2.6 G/DL (3.4-5.0); ALBUMIN/GLOBULIN RATIO 0.7 (1.1-1.5); ALKALINE PHOSPHATASE 56 IU/L (46-116); ANION GAP 7 (8-16); ASPARTATE AMINO TRANSFERASE 16 U/L (10-37); BILIRUBIN,TOTAL 0.3 MG/DL (0.1-1.0); BLOOD UREA NITROGEN 51 MG/DL (7-18); BUN/CREATININE RATIO 23.9 (5.4-32.0); CHLORIDE 100 MMOL/L (99-107); CREATININE 2.13 MG/DL (0.60-1.10); GLUCOSE 101 MG/DL (70-104); POTASSIUM 4.5 MMOL/L (3.5-5.1); SODIUM 133 MMOL/L (135-145); TOTAL CARBON DIOXIDE 25.8 MMOL/L (24-32); TOTAL PROTEIN 6.2 G/DL (6.4-8.2); eGFR 32 ML/MIN
--- NOTE | 2020-03-15 19:10 | NUR ---
Patient in room CLIFF 350. I have received report from ENEDINA Quiroga and had the opportunity to ask questions and assume patient care. Addendum: 03/15/20 at 1911 by Roxanne Garcia RN Amended: Links added.
[2020-03-15 20:00] VITALS: BP 165/87
[2020-03-15] MEDS: tamsulosin 0.4mg capsule PO SCH (22:00)
[2020-03-16] VITALS: BP 144/87
[2020-03-16] MEDS: cephalexin 500mg capsule PO SCH ×4 (03:59→20:03)
--- NOTE | 2020-03-16 06:05 | NUR ---
Patient in room CLIFF 350. I have received report from ENEDINA Small and had the opportunity to ask questions and assume patient care.
--- NOTE | 2020-03-16 06:30 | NUR ---
Problems reprioritized. Patient report given, questions answered & plan of care reviewed with ENEDINA Leon.
[2020-03-16 07:00] VITALS: BP 140/90
[2020-03-16] MEDS: ipratropium/albuterol 3ml nebule NEB SCH ×5 (07:12→23:26)
[2020-03-16] MEDS: K and/or MAG REPLACEMENT MC SCH ×2 (08:00→20:00)
[2020-03-16] MEDS: amLODIPine 5mg tablet PO SCH (08:57)
[2020-03-16] MEDS: metoprolol succinate 25mg (24-HOUR) SR. Tablet PO SCH (08:57)
[2020-03-16] MEDS: lactobacillus rhamnosus 10,000 MMU CELLS/CAPSULE PO SCH ×2 (08:57→20:03)
[2020-03-16] MEDS: atorvastatin 20mg tablet PO SCH (08:57)
[2020-03-16] MEDS: aspirin 81mg tablet.DR PO SCH (08:57)
[2020-03-16] MEDS: nystatin 15 GM powder TP SCH ×3 (08:58→20:23)
--- NOTE | 2020-03-16 11:30 | NUR ---
Dr. Valenzuela at bedside. Made aware of L forearm redness, warmth, and purulent drainage. ordered warm compress as needed and continue to monitor. Stated that patient is on Keflex PO, no new orders received at this time. Will continue to monitor.
[2020-03-16 11:55] LABS: ALANINE AMINOTRANSFERASE 22 U/L (12-78); ALBUMIN 2.5 G/DL (3.4-5.0); ALBUMIN/GLOBULIN RATIO 0.7 (1.1-1.5); ALKALINE PHOSPHATASE 50 IU/L (46-116); ANION GAP 10 (8-16); ASPARTATE AMINO TRANSFERASE 15 U/L (10-37); BILIRUBIN,TOTAL 0.2 MG/DL (0.1-1.0); BLOOD UREA NITROGEN 50 MG/DL (7-18); CALCIUM 8.2 MG/DL (8.5-10.1); CHLORIDE 100 MMOL/L (99-107); CREATININE 2.27 MG/DL (0.60-1.10); GLUCOSE 105 MG/DL (70-104); POTASSIUM 4.4 MMOL/L (3.5-5.1); SODIUM 136 MMOL/L (135-145); TOTAL CARBON DIOXIDE 26.2 MMOL/L (24-32); TOTAL PROTEIN 6.2 G/DL (6.4-8.2); eGFR 29 ML/MIN
[2020-03-16 12:00] VITALS: BP 130/72
[2020-03-16] MEDS: normal saline 1000ml 1,000 ML IV SCH ×3 (12:00→21:49)
[2020-03-16] MEDS: HYDROcodone/acetaminophen 10/325mg tab PO PRN ×2 (13:34→20:25)
--- NOTE | 2020-03-16 17:49 | NUR ---
Patient to CT.
[2020-03-16 17:54] LABS: CLARITY,URINE CLOUDY (Clear); COLOR,URINE YELLOW (Yellow); GLUCOSE, URINE NEGATIVE (Neg); KETONES,URINE NEGATIVE (Neg); LEUKOCYTE ESTERASE ,URINE TRACE (Neg); NITRITES, URINE NEGATIVE (Neg); OCCULT BLOOD,URINE LARGE (Neg); PH,URINE 5.5 (4.8-8.0); PROTEIN,URINE 100 mg/dl (Neg); UROBILINOGEN,URINE 0.2 E.U/dL (0.2-1.0)
[2020-03-16 18:03] LABS: TOTAL PROTEIN,URINE RANDOM 100.1 MG/DL
--- NOTE | 2020-03-16 18:10 | NUR ---
Problems reprioritized. Patient report given, questions answered & plan of care reviewed with ENEDINA Small.
[2020-03-16 18:11] LABS: UA COLLECTION TYPE CLN CATCH MIDSTREAM
[2020-03-16 18:15] LABS: BACTERIA,URINE FEW /HPF (Neg); RBC,URINE TNTC /HPF (0-2); SQUAMOUS EPITHELIAL CELL,UR FEW /LPF (FEW)
[2020-03-16 18:16] LABS: AMORPHOUS URATES 1+; TRANSITIONAL EPI CELLS,URINE FEW /HPF
--- NOTE | 2020-03-16 18:24 | NUR ---
Patient in room CLIFF 347. I have received report from ENEDINA TIPTON and had the opportunity to ask questions and assume patient care. Addendum: 03/16/20 at 1825 by Roxanne Garcia RN Amended: Links added.
[2020-03-16 18:50] LABS: UA EOSINOPHILS NO EOS /HPF
[2020-03-16 20:00] VITALS: BP 140/76
[2020-03-16] MEDS: tamsulosin 0.4mg capsule PO SCH (20:03)
[2020-03-17] VITALS: BP 127/76
[2020-03-17] MEDS: cephalexin 500mg capsule PO SCH ×4 (01:11→20:03)
[2020-03-17] MEDS: ipratropium/albuterol 3ml nebule NEB SCH ×3 (03:00→11:32)
[2020-03-17] MEDS: normal saline 1000ml 1,000 ML IV SCH ×3 (05:08→20:03)
[2020-03-17] MEDS: HYDROcodone/acetaminophen 10/325mg tab PO PRN ×2 (05:08→15:08)
--- NOTE | 2020-03-17 05:39 | NUR ---
patient was cooperative and let me do skin assessment on her. offer to do bladder scan but she refused. she was complaining of bladder pain and got an order for tylenol, patient said she will take them and still holding on to them at this time.
--- NOTE | 2020-03-17 06:31 | NUR ---
Problems reprioritized. Patient report given, questions answered & plan of care reviewed with ENEDINA Del Rio.
[2020-03-17 06:38] LABS: ALANINE AMINOTRANSFERASE 22 U/L (12-78); ALBUMIN 2.5 G/DL (3.4-5.0); ALBUMIN/GLOBULIN RATIO 0.7 (1.1-1.5); ALKALINE PHOSPHATASE 49 IU/L (46-116); ANION GAP 8 (8-16); ASPARTATE AMINO TRANSFERASE 16 U/L (10-37); BILIRUBIN,TOTAL 0.2 MG/DL (0.1-1.0); BLOOD UREA NITROGEN 44 MG/DL (7-18); BUN/CREATININE RATIO 19.3 (5.4-32.0); CALCIUM 8.2 MG/DL (8.5-10.1); CHLORIDE 105 MMOL/L (99-107); CREATININE 2.28 MG/DL (0.60-1.10); GLUCOSE 103 MG/DL (70-104); POTASSIUM 4.8 MMOL/L (3.5-5.1); SODIUM 137 MMOL/L (135-145); TOTAL CARBON DIOXIDE 24.1 MMOL/L (24-32); TOTAL PROTEIN 6.1 G/DL (6.4-8.2); eGFR 29 ML/MIN
[2020-03-17 07:25] VITALS: BP 142/85
[2020-03-17] MEDS: K and/or MAG REPLACEMENT MC SCH ×2 (08:00→18:32)
[2020-03-17] MEDS: lactobacillus rhamnosus 10,000 MMU CELLS/CAPSULE PO SCH ×2 (08:11→20:03)
[2020-03-17] MEDS: aspirin 81mg tablet.DR PO SCH (08:11)
[2020-03-17] MEDS: atorvastatin 20mg tablet PO SCH (08:11)
[2020-03-17] MEDS: metoprolol succinate 25mg (24-HOUR) SR. Tablet PO SCH (08:11)
[2020-03-17] MEDS: amLODIPine 5mg tablet PO SCH (08:11)
[2020-03-17] MEDS: nystatin 15 GM powder TP SCH ×3 (08:12→20:04)
[2020-03-17 11:00] VITALS: BP 151/86
--- NOTE | 2020-03-17 11:14 | NUR ---
PAGER ID: [phone] MESSAGE: Charles Whitten: RT is requesting that patients breathing treatments be PRN or [id number] awake... [id number]
[2020-03-17 12:11] LABS: CLARITY,URINE SLIGHTLY CLOUDY (Clear); COLOR,URINE YELLOW (Yellow); GLUCOSE, URINE NEGATIVE (Neg); KETONES,URINE NEGATIVE (Neg); LEUKOCYTE ESTERASE ,URINE SMALL (Neg); NITRITES, URINE NEGATIVE (Neg); OCCULT BLOOD,URINE LARGE (Neg); PROTEIN,URINE 30 mg/dl (Neg); UROBILINOGEN,URINE 0.2 E.U/dL (0.2-1.0)
[2020-03-17 12:12] LABS: UA COLLECTION TYPE CLN CATCH MIDSTREAM
[2020-03-17 12:21] LABS: RBC,URINE 50-100 /HPF (0-2)
[2020-03-17 12:22] LABS: AMORPHOUS URATES 1+; BACTERIA,URINE FEW /HPF (Neg)
[2020-03-17 12:28] LABS: TRANSITIONAL EPI CELLS,URINE MODERATE /HPF
[2020-03-17 12:30] LABS: HYALINE CASTS 0-3 /LPF (NEGATIVE); RENAL CELLS, URINE FEW /HPF
[2020-03-17 12:32] LABS: SQUAMOUS EPITHELIAL CELL,UR MODERATE /LPF (FEW); WBC CLUMPS,URINE FEW /HPF (NEGATIVE)
[2020-03-17] MEDS ORDERED: ipratropium/albuterol 3ml nebule NEB PRN (15:20)
[2020-03-17] MEDS: magnesium hydroxide 30ml (MOM) UD suspension PO PRN (17:02)
--- NOTE | 2020-03-17 17:03 | NUR ---
Milk of mag and Prune juice given
[2020-03-17 18:15] VITALS: BP 152/85
--- NOTE | 2020-03-17 18:29 | NUR ---
Problems reprioritized. Patient report given, questions answered & plan of care reviewed with ENEDINA Davis.
--- NOTE | 2020-03-17 18:31 | NUR ---
Patient in room CLIFF 347. I have received report from ENEDINA Rodriguez and had the opportunity to ask questions and assume patient care.
[2020-03-17 20:00] VITALS: BP 152/85
[2020-03-17] MEDS: tamsulosin 0.4mg capsule PO SCH (20:03)
[2020-03-18] VITALS: BP 129/73
[2020-03-18] MEDS: normal saline 1000ml 1,000 ML IV SCH ×3 (01:46→17:52)
[2020-03-18] MEDS: cephalexin 500mg capsule PO SCH ×4 (01:46→20:44)
[2020-03-18] MEDS: HYDROcodone/acetaminophen 10/325mg tab PO PRN (04:05)
--- NOTE | 2020-03-18 06:18 | NUR ---
Problems reprioritized. Patient report given, questions answered & plan of care reviewed with ENEDINA Rodriguez.
[2020-03-18 06:59] LABS: ALANINE AMINOTRANSFERASE 23 U/L (12-78); ALBUMIN 2.8 G/DL (3.4-5.0); ALBUMIN/GLOBULIN RATIO 0.7 (1.1-1.5); ALKALINE PHOSPHATASE 53 IU/L (46-116); ANION GAP 8 (8-16); ASPARTATE AMINO TRANSFERASE 17 U/L (10-37); BILIRUBIN,TOTAL 0.3 MG/DL (0.1-1.0); BLOOD UREA NITROGEN 35 MG/DL (7-18); BUN/CREATININE RATIO 18.4 (5.4-32.0); CALCIUM 8.2 MG/DL (8.5-10.1); CHLORIDE 104 MMOL/L (99-107); GLUCOSE 102 MG/DL (70-104); POTASSIUM 5.1 MMOL/L (3.5-5.1); SODIUM 137 MMOL/L (135-145); TOTAL CARBON DIOXIDE 24.7 MMOL/L (24-32); TOTAL PROTEIN 6.6 G/DL (6.4-8.2); eGFR 36 ML/MIN
[2020-03-18 07:40] VITALS: BP 172/60
[2020-03-18] MEDS: K and/or MAG REPLACEMENT MC SCH ×2 (08:00→19:45)
[2020-03-18] MEDS: aspirin 81mg tablet.DR PO SCH (08:15)
[2020-03-18] MEDS: atorvastatin 20mg tablet PO SCH (08:15)
[2020-03-18] MEDS: amLODIPine 5mg tablet PO SCH (08:15)
[2020-03-18] MEDS: metoprolol succinate 25mg (24-HOUR) SR. Tablet PO SCH (08:15)
[2020-03-18] MEDS: lactobacillus rhamnosus 10,000 MMU CELLS/CAPSULE PO SCH ×2 (08:15→20:44)
[2020-03-18] MEDS: nystatin 15 GM powder TP SCH ×4 (08:17→20:47)
[2020-03-18 12:00] VITALS: BP 159/86
--- NOTE | 2020-03-18 18:02 | NUR ---
Problems reprioritized. Patient report given, questions answered & plan of care reviewed with ENEDINA Davis.
[2020-03-18 18:15] VITALS: BP 124/76
--- NOTE | 2020-03-18 18:31 | NUR ---
Patient in room CLIFF 347. I have received report from ENEDINA Rodriguez and had the opportunity to ask questions and assume patient care.
[2020-03-18] MEDS: tamsulosin 0.4mg capsule PO SCH (20:44)
[2020-03-19] VITALS (7 sets, daily range): BP systolic 145–176; BP diastolic 85–120
[2020-03-19] MEDS: normal saline 1000ml 1,000 ML IV SCH ×3 (01:24→18:25)
[2020-03-19] MEDS: cephalexin 500mg capsule PO SCH ×4 (01:24→20:19)
--- NOTE | 2020-03-19 06:39 | NUR ---
Problems reprioritized. Patient report given, questions answered & plan of care reviewed with ENEDINA Lara and ENEDINA Kraus.
--- NOTE | 2020-03-19 06:40 | NUR ---
Patient in room CLIFF 347. I have received report from ENEDINA Davis and had the opportunity to ask questions and assume patient care.
[2020-03-19 07:06] LABS: ALANINE AMINOTRANSFERASE 23 U/L (12-78); ALBUMIN 2.8 G/DL (3.4-5.0); ALBUMIN/GLOBULIN RATIO 0.7 (1.1-1.5); ALKALINE PHOSPHATASE 59 IU/L (46-116); ANION GAP 7 (8-16); ASPARTATE AMINO TRANSFERASE 16 U/L (10-37); BILIRUBIN,TOTAL 0.4 MG/DL (0.1-1.0); BLOOD UREA NITROGEN 30 MG/DL (7-18); CALCIUM 8.5 MG/DL (8.5-10.1); CHLORIDE 106 MMOL/L (99-107); CREATININE 1.88 MG/DL (0.60-1.10); GLUCOSE 99 MG/DL (70-104); POTASSIUM 4.7 MMOL/L (3.5-5.1); SODIUM 137 MMOL/L (135-145); TOTAL CARBON DIOXIDE 23.8 MMOL/L (24-32); TOTAL PROTEIN 6.6 G/DL (6.4-8.2); eGFR 37 ML/MIN
[2020-03-19] MEDS: K and/or MAG REPLACEMENT MC SCH ×2 (08:00→18:43)
[2020-03-19] MEDS: nystatin 15 GM powder TP SCH ×3 (08:00→20:19)
[2020-03-19] MEDS: aspirin 81mg tablet.DR PO SCH (08:10)
[2020-03-19] MEDS: lactobacillus rhamnosus 10,000 MMU CELLS/CAPSULE PO SCH ×2 (08:10→20:19)
[2020-03-19] MEDS: amLODIPine 5mg tablet PO SCH (08:11)
[2020-03-19] MEDS: atorvastatin 20mg tablet PO SCH (08:11)
[2020-03-19] MEDS: metoprolol succinate 25mg (24-HOUR) SR. Tablet PO SCH (08:11)
--- NOTE | 2020-03-19 14:07 | NUR ---
Reassessment: Per MD notes pt with acute on chronic renal failure, nephrology following. Pt continues with 75-100% PO intake meeting nutrient needs. LBM 03/18 documented as large, receiving PRN bowel care. No nutrition intervention implemented at this time. Pt awaiting placement per MD notes. Will continue to follow. Recommend: 1. continue heart healthy mechanical soft diet grind all per ST recs 2. routine bowel care 3. weight per rx Addendum: 03/19/20 at [address] Amended: Links added.
--- NOTE | 2020-03-19 16:55 | NUR ---
RN requested RD visit pt regarding meal trays. Pt seen at bedside requests more food. Pt agrees to double protein TID and peanut butter TID, d/w dietary. Pt provided with RD contact information for any further food preferences. Will remain available. Addendum: 03/19/20 at [address] Amended: Links added.
--- NOTE | 2020-03-19 18:32 | NUR ---
Patient in room CLIFF 347. I have received report from ENEDINA Kraus and ENEDINA Lara and had the opportunity to ask questions and assume patient care.
[2020-03-19] MEDS: tamsulosin 0.4mg capsule PO SCH (20:19)
[2020-03-19] MEDS: hydrALAZINE 20mg/ml inj. IV PRN (20:47)
--- NOTE | 2020-03-19 21:03 | NUR ---
Manual BP performed, 164/88. No complaint of pain at this time. Hydralazine 10 mg IV administered. Will recheck pt's BP.
[2020-03-20] VITALS: BP 152/88
[2020-03-20] MEDS: normal saline 1000ml 1,000 ML IV SCH ×2 (01:38→09:19)
[2020-03-20] MEDS: cephalexin 500mg capsule PO SCH ×4 (01:38→21:38)
--- NOTE | 2020-03-20 06:46 | NUR ---
Problems reprioritized. Patient report given, questions answered & plan of care reviewed with ENEDINA Gregory.
[2020-03-20 06:50] LABS: ALANINE AMINOTRANSFERASE 22 U/L (12-78); ALBUMIN 2.8 G/DL (3.4-5.0); ALBUMIN/GLOBULIN RATIO 0.7 (1.1-1.5); ALKALINE PHOSPHATASE 59 IU/L (46-116); ANION GAP 10 (8-16); ASPARTATE AMINO TRANSFERASE 17 U/L (10-37); BILIRUBIN,TOTAL 0.4 MG/DL (0.1-1.0); BLOOD UREA NITROGEN 27 MG/DL (7-18); BUN/CREATININE RATIO 15.4 (5.4-32.0); CALCIUM 8.5 MG/DL (8.5-10.1); CHLORIDE 106 MMOL/L (99-107); CREATININE 1.75 MG/DL (0.60-1.10); GLUCOSE 99 MG/DL (70-104); SODIUM 138 MMOL/L (135-145); TOTAL CARBON DIOXIDE 22.5 MMOL/L (24-32); TOTAL PROTEIN 6.6 G/DL (6.4-8.2); eGFR 40 ML/MIN
--- NOTE | 2020-03-20 07:11 | NUR ---
Patient in room CLIFF 347. I have received report from ENEDINA Davis and had the opportunity to ask questions and assume patient care.
[2020-03-20 07:30] VITALS: BP 128/95
[2020-03-20] MEDS: K and/or MAG REPLACEMENT MC SCH ×2 (08:00→20:00)
[2020-03-20] MEDS: lactobacillus rhamnosus 10,000 MMU CELLS/CAPSULE PO SCH ×2 (09:12→21:38)
[2020-03-20] MEDS: metoprolol succinate 25mg (24-HOUR) SR. Tablet PO SCH (09:13)
[2020-03-20] MEDS: amLODIPine 5mg tablet PO SCH (09:13)
[2020-03-20] MEDS: atorvastatin 20mg tablet PO SCH (09:13)
[2020-03-20] MEDS: aspirin 81mg tablet.DR PO SCH (09:14)
[2020-03-20] MEDS: nystatin 15 GM powder TP SCH ×3 (09:15→21:39)
[2020-03-20] MEDS: docusate sod 100mg capsule PO PRN ×2 (09:17→21:38)
[2020-03-20 12:00] VITALS: BP 148/88
[2020-03-20] MEDS: HYDROcodone/acetaminophen 10/325mg tab PO PRN ×2 (13:47→19:05)
--- NOTE | 2020-03-20 18:26 | NUR ---
Patient in room CLIFF 347. I have received report from Bri Duenas and had the opportunity to ask questions and assume patient care. Addendum: 03/20/20 at 1826 by Margret Staton RN Amended: Links added.
[2020-03-20 19:00] VITALS: BP 150/94
--- NOTE | 2020-03-20 19:07 | NUR ---
sitting up in chair medicated with norco 10mg for left hip pain .
--- NOTE | 2020-03-20 19:19 | NUR ---
Problems reprioritized. Patient report given, questions answered & plan of care reviewed with ENEDINA Oswald.
[2020-03-20] MEDS: tamsulosin 0.4mg capsule PO SCH (21:38)
--- NOTE | 2020-03-20 21:59 | NUR ---
feet soaked in luke warm water looks better and dried with a towel then Calazime cream to them bilat and barrier cream to lower legs. hs care done to periarea. pt refused to have rn do it he did it himself then nystatin powder applied to groin area. pt had also taken his meds and stated pain to left hip better but still has some burning to it.
--- NOTE | 2020-03-20 22:30 | NUR ---
pt assisted into bed tolerated well no complaints at this time.
[2020-03-21 00:09] VITALS: BP 154/95
--- NOTE | 2020-03-21 00:18 | NUR ---
pt resting eyes closed without changes.
[2020-03-21] MEDS: HYDROcodone/acetaminophen 10/325mg tab PO PRN ×4 (00:46→20:08)
--- NOTE | 2020-03-21 00:48 | NUR ---
pt awoke in left hip pain and medicated for it with po norco at this time.
[2020-03-21] MEDS: cephalexin 500mg capsule PO SCH ×4 (02:54→20:04)
--- NOTE | 2020-03-21 02:56 | NUR ---
took po antibiotic after awakened by loud roommate.
--- NOTE | 2020-03-21 04:45 | NUR ---
pt back to bed resting eyes closed on his left side.
[2020-03-21 05:45] LABS: ALANINE AMINOTRANSFERASE 19 U/L (12-78); ALBUMIN 2.7 G/DL (3.4-5.0); ALBUMIN/GLOBULIN RATIO 0.7 (1.1-1.5); ALKALINE PHOSPHATASE 59 IU/L (46-116); ANION GAP 6 (8-16); ASPARTATE AMINO TRANSFERASE 16 U/L (10-37); BILIRUBIN,TOTAL 0.2 MG/DL (0.1-1.0); BLOOD UREA NITROGEN 37 MG/DL (7-18); BUN/CREATININE RATIO 20.6 (5.4-32.0); CALCIUM 8.8 MG/DL (8.5-10.1); CHLORIDE 104 MMOL/L (99-107); GLUCOSE 126 MG/DL (70-104); SODIUM 137 MMOL/L (135-145); TOTAL CARBON DIOXIDE 26.9 MMOL/L (24-32); TOTAL PROTEIN 6.5 G/DL (6.4-8.2); eGFR 38 ML/MIN
--- NOTE | 2020-03-21 06:16 | NUR ---
Problems reprioritized. Patient report given, questions answered & plan of care reviewed with Bri Duenas. Addendum: 03/21/20 at 0623 by Margret Staton RN Amended: Links added.
--- NOTE | 2020-03-21 06:36 | NUR ---
Patient in room CLIFF 347. I have received report from ENEDINA Oswald and had the opportunity to ask questions and assume patient care.
[2020-03-21 08:00] VITALS: BP 139/74
[2020-03-21] MEDS: K and/or MAG REPLACEMENT MC SCH ×2 (08:00→20:00)
--- NOTE | 2020-03-21 08:02 | NUR ---
Pt taken to OR. Report given RN. Addendum: 03/21/20 at 0958 by Bri Sheppard RN WRONG PT.
[2020-03-21] MEDS: metoprolol succinate 25mg (24-HOUR) SR. Tablet PO SCH (08:27)
[2020-03-21] MEDS: lactobacillus rhamnosus 10,000 MMU CELLS/CAPSULE PO SCH ×2 (08:27→20:04)
[2020-03-21] MEDS: atorvastatin 20mg tablet PO SCH (08:27)
[2020-03-21] MEDS: amLODIPine 5mg tablet PO SCH (08:27)
[2020-03-21] MEDS: aspirin 81mg tablet.DR PO SCH (08:27)
[2020-03-21] MEDS: nystatin 15 GM powder TP SCH ×3 (10:59→20:04)
[2020-03-21 11:00] VITALS: BP 145/79
[2020-03-21] MEDS: docusate sod 100mg capsule PO PRN (11:01)
--- NOTE | 2020-03-21 18:36 | NUR ---
Patient in room CLIFF 347. I have received report from Bri Duenas and had the opportunity to ask questions and assume patient care. Addendum: 03/21/20 at 1836 by Margret Staton RN Amended: Links added.
--- NOTE | 2020-03-21 18:53 | NUR ---
Problems reprioritized. Patient report given, questions answered & plan of care reviewed with ENEDINA Oswald.
[2020-03-21 19:40] VITALS: BP 141/83
[2020-03-21 20:00] VITALS: BP 141/83
[2020-03-21] MEDS: tamsulosin 0.4mg capsule PO SCH (20:04)
--- NOTE | 2020-03-21 20:05 | NUR ---
PT MEDICATED FOR LEFT HIP PAIN BURNING. TOOK HS MEDICATIONS. LEDFT SIDE ABD SKIN CARE DONE BY MALE professor of french PICTURE TAKEN ABND NYSTATIN TO THE SITE. BILAT FEET NOTED 1-2 PITTING ANKLE EDEMA TONIGHT. SOAKING PT FEET.
--- NOTE | 2020-03-21 20:44 | NUR ---
FEET DRIED PICTURES TAKEN OF FEET BILAT AND THEN CREAMS APPLIED TO THEM. SOCKS APPLIEDS WITH NON SKID CUFF AT ANKLES CUT DUE TO THE EDSEMA TO THEM.
--- NOTE | 2020-03-21 22:00 | NUR ---
PT IN BED RESTING EYES CLOSED WITHOUT S&S OF DISTRESS AT THIS TIME.
--- NOTE | 2020-03-21 23:19 | NUR ---
pt resting eyes closed without s&s of distress.
[2020-03-21 23:22] VITALS: BP 118/65
--- NOTE | 2020-03-22 00:15 | NUR ---
PT SNORING RIGHT SIDE NO CHANGES.
[2020-03-22] MEDS: cephalexin 500mg capsule PO SCH ×2 (02:31→07:19)
--- NOTE | 2020-03-22 02:34 | NUR ---
awoke for oral antibiotic dos. had voided 380cc medium yellow urine.
--- NOTE | 2020-03-22 03:57 | NUR ---
RESTING EYES CLOSED NO CHANGES.
--- NOTE | 2020-03-22 05:24 | NUR ---
resting without changes.
--- NOTE | 2020-03-22 06:19 | NUR ---
Problems reprioritized. Patient report given, questions answered & plan of care reviewed with Kimber Duenas. Addendum: 03/22/20 at 0619 by Margret Staton RN Amended: Links added.
[2020-03-22] MEDS: K and/or MAG REPLACEMENT MC SCH ×2 (06:53→20:00)
[2020-03-22] MEDS: HYDROcodone/acetaminophen 10/325mg tab PO PRN ×3 (07:18→15:52)
[2020-03-22] MEDS: lactobacillus rhamnosus 10,000 MMU CELLS/CAPSULE PO SCH ×2 (07:19→19:57)
[2020-03-22] MEDS: amLODIPine 5mg tablet PO SCH (07:19)
[2020-03-22] MEDS: aspirin 81mg tablet.DR PO SCH (07:19)
[2020-03-22] MEDS: metoprolol succinate 25mg (24-HOUR) SR. Tablet PO SCH (07:19)
[2020-03-22] MEDS: atorvastatin 20mg tablet PO SCH (07:20)
[2020-03-22 07:33] VITALS: BP 156/95
[2020-03-22] MEDS: nystatin 15 GM powder TP SCH ×3 (08:57→19:58)
[2020-03-22 11:31] VITALS: BP 131/75
[2020-03-22] MEDS: magnesium hydroxide 30ml (MOM) UD suspension PO PRN (11:44)
--- NOTE | 2020-03-22 14:31 | NUR ---
Page sent to Case management. Charles Whitten 347A: [place]...patient says he would like to go to [place] in [place]. thanks!
--- NOTE | 2020-03-22 15:53 | NUR ---
patient c/o burning pain in hip. medicated x2 with relief. will monitor. Able to ambulate with PT [id number] nathaniel PT note.
--- NOTE | 2020-03-22 18:46 | NUR ---
Problems reprioritized. Patient report given, questions answered & plan of care reviewed with lucian reno.
--- NOTE | 2020-03-22 18:46 | NUR ---
Patient in room CLIFF 347. I have received report from DAMARIS MCCONNELL and had the opportunity to ask questions and assume patient care. Addendum: 03/22/20 at 1847 by Margret Staton RN Amended: Links added.
[2020-03-22] MEDS: docusate sod 100mg capsule PO PRN (19:57)
[2020-03-22] MEDS: tamsulosin 0.4mg capsule PO SCH (19:57)
--- NOTE | 2020-03-22 19:59 | NUR ---
pt refused to have care done to his feet at this time. pt stated he would put nystatin powder on his left groin himself. pain 8-10 to the left hip. pt plus 1-2 non pitting edema tonight. pt's feet elevated in reclining chair. left hand stronger than the right side. both hands and feet.
[2020-03-22 20:00] VITALS: BP 142/87
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
[2020-03-23] VITALS: BP 150/95
--- NOTE | 2020-03-23 | NUR ---
pt medicated for pain with norco 10mg and assisted into bed at this time.
[2020-03-23] MEDS: HYDROcodone/acetaminophen 10/325mg tab PO PRN ×5 (00:04→21:51)
--- NOTE | 2020-03-23 02:00 | NUR ---
resting eyes closed without changes.
--- NOTE | 2020-03-23 04:00 | NUR ---
pt resting eyes closed without s&s of distress at this time.
--- NOTE | 2020-03-23 05:32 | NUR ---
resting without changes.
--- NOTE | 2020-03-23 06:14 | NUR ---
Problems reprioritized. Patient report given, questions answered & plan of care reviewed with Val Duenas's. Addendum: 03/23/20 at 0615 by Margret Staton RN Amended: Links added.
--- NOTE | 2020-03-23 06:47 | NUR ---
Patient in room CLIFF 347. I have received report from ENEDINA Vanegas and had the opportunity to ask questions and assume patient care.
[2020-03-23 07:26] VITALS: BP 118/74
[2020-03-23] MEDS: K and/or MAG REPLACEMENT MC SCH ×2 (07:34→20:00)
[2020-03-23] MEDS: atorvastatin 20mg tablet PO SCH (07:39)
[2020-03-23] MEDS: metoprolol succinate 25mg (24-HOUR) SR. Tablet PO SCH (07:39)
[2020-03-23] MEDS: aspirin 81mg tablet.DR PO SCH (07:39)
[2020-03-23] MEDS: lactobacillus rhamnosus 10,000 MMU CELLS/CAPSULE PO SCH ×2 (07:39→19:32)
[2020-03-23] MEDS: amLODIPine 5mg tablet PO SCH (07:39)
[2020-03-23] MEDS: nystatin 15 GM powder TP SCH ×3 (08:00→19:33)
[2020-03-23 11:00] VITALS: BP 141/76
[2020-03-23] MEDS: magnesium hydroxide 30ml (MOM) UD suspension PO PRN (13:18)
--- NOTE | 2020-03-23 18:01 | NUR ---
Problems reprioritized. Patient report given, questions answered & plan of care reviewed with Abiel.
--- NOTE | 2020-03-23 18:30 | NUR ---
Patient in room CLIFF 347. I have received report from BRETT MCCONNELL and had the opportunity to ask questions and assume patient care.
[2020-03-23] MEDS: tamsulosin 0.4mg capsule PO SCH (19:32)
[2020-03-23 20:00] VITALS: BP 145/79
[2020-03-24] VITALS: BP 141/84
[2020-03-24] MEDS: HYDROcodone/acetaminophen 10/325mg tab PO PRN ×4 (04:04→21:14)
--- NOTE | 2020-03-24 06:30 | NUR ---
Problems reprioritized. Patient report given, questions answered & plan of care reviewed with BALAJI MCCONNELL.
--- NOTE | 2020-03-24 06:30 | NUR ---
Patient in room CLIFF 347. I have received report from SONIYA BYRNES RN and had the opportunity to ask questions and assume patient care.
[2020-03-24 07:00] VITALS: BP 150/95
[2020-03-24] MEDS: lactobacillus rhamnosus 10,000 MMU CELLS/CAPSULE PO SCH ×2 (07:40→20:06)
[2020-03-24] MEDS: aspirin 81mg tablet.DR PO SCH (07:41)
[2020-03-24] MEDS: atorvastatin 20mg tablet PO SCH (07:41)
[2020-03-24] MEDS: amLODIPine 5mg tablet PO SCH (07:42)
[2020-03-24] MEDS: metoprolol succinate 25mg (24-HOUR) SR. Tablet PO SCH (07:42)
[2020-03-24] MEDS: nystatin 15 GM powder TP SCH ×3 (07:42→20:07)
[2020-03-24] MEDS: K and/or MAG REPLACEMENT MC SCH ×2 (08:00→20:00)
[2020-03-24] MEDS: docusate sod 100mg capsule PO PRN ×2 (10:25→21:14)
[2020-03-24 11:00] VITALS: BP 144/80
[2020-03-24] MEDS: magnesium hydroxide 30ml (MOM) UD suspension PO PRN (16:36)
--- NOTE | 2020-03-24 18:34 | NUR ---
Problems reprioritized. Patient report given, questions answered & plan of care reviewed with SONIYA BYRNES RN.
--- NOTE | 2020-03-24 18:35 | NUR ---
Patient in room CLIFF 347. I have received report from BALAJI MCCONNELL and had the opportunity to ask questions and assume patient care.
[2020-03-24 19:55] VITALS: BP 152/90
[2020-03-24] MEDS: tamsulosin 0.4mg capsule PO SCH (20:06)
[2020-03-24] MEDS ORDERED: METO-395 PO (20:07)
[2020-03-24] MEDS ORDERED: ATOR20TA66 PO (20:07)
[2020-03-24] MEDS ORDERED: tamsulosin capsule PO (20:07)
[2020-03-24] MEDS ORDERED: NOR5T PO (20:07)
[2020-03-24] MEDS ORDERED: ASPI-1071 PO (20:07)
[2020-03-25] VITALS: BP 141/79
[2020-03-25] MEDS: HYDROcodone/acetaminophen 10/325mg tab PO PRN (06:00)
--- NOTE | 2020-03-25 06:30 | NUR ---
Patient in room CLIFF 347. I have received report from Abiel and had the opportunity to ask questions and assume patient care.
--- NOTE | 2020-03-25 06:30 | NUR ---
Problems reprioritized. Patient report given, questions answered & plan of care reviewed with BRETT MCCONNELL.
[2020-03-25 07:00] VITALS: BP 138/78
[2020-03-25] MEDS: atorvastatin 20mg tablet PO SCH (07:40)
[2020-03-25] MEDS: aspirin 81mg tablet.DR PO SCH (07:40)
[2020-03-25] MEDS: amLODIPine 5mg tablet PO SCH (07:40)
[2020-03-25] MEDS: lactobacillus rhamnosus 10,000 MMU CELLS/CAPSULE PO SCH (07:40)
[2020-03-25] MEDS: metoprolol succinate 25mg (24-HOUR) SR. Tablet PO SCH (07:40)
[2020-03-25] MEDS: nystatin 15 GM powder TP SCH (08:00)
[2020-03-25] MEDS: K and/or MAG REPLACEMENT MC SCH (08:00)
--- NOTE | 2020-03-25 08:10 | NUR ---
Pt DC with sack lunch and po fluids for trip to out of area facility. Clothing provided as pt had none. Stroke core measure packet given.
== END 2020-03-25 08:10 | DRG 45 ==
LOC: ER 16:54 → ED HOLD 20:58 → SUR 3N 22:13
PROVIDERS: ADMIT Family Medicine; ATTEND Internal Medicine
DX: I63.9 Cerebral infarction, unspecified (principal); N17.9 Acute kidney failure, unspecified; N18.3 Chronic kidney disease, stage 3 (moderate); I69.354 Hemiplegia and hemiparesis following cerebral infarction affecting left non-dominant side; L28.0 Lichen simplex chronicus; Z59.0 Homelessness; Z87.440 Personal history of urinary (tract) infections; Z87.891 Personal history of nicotine dependence; I12.9 Hypertensive chronic kidney disease with stage 1 through stage 4 chronic kidney disease, or unspecified chronic kidney disease; R31.0 Gross hematuria
CPT/HCPCS: 36415; 70450; 71045; 74176; 76775; 80048; 80053; 80061; 80305; 81001; 82570; 83735; 83935; 84133; 84156; 84300; 85025; 85610; 85730; 86885; 86900; 86901; 87081; 87088; 87207; 92508; 92616; 93005; 93306; 93880; 94640; 94760; 97110; 97112; 97116; 97162; 97530; 99291; G0378; J0360; J1644; J1940; J2060; J2405; J2920; J7030

== ENCOUNTER 2020-04-24 16:24 | Inpatient (IN) | payer MEDICAID ==
[~2020-04-24] VITALS: Ht 177.8 cm; Wt 100.0 kg
[~2020-04-24 16:24] MED LIST changes: +ASPI-1071 PO; -ASPI-611 PO; +ATOR20TA66 PO; -FLO0.4C PO; -LOSA50TA64 PO; +METO-395 PO; +NO HOME MEDS; +NOR5T PO; -PERM60CR4 TOP; -PHEN-786 PO; +tamsulosin capsule PO
[2020-04-24] MEDS ORDERED: furosemide 40mg/4ml inj IV ONE (18:35)
[2020-04-24] MEDS ORDERED: nitroGLYCERIN 0.4mg SUBLingual tab SL STA (18:48)
[2020-04-24 18:57] LABS: BASOPHILS % (AUTO) 0.3 % (0-1); EOSINOPHILS # (AUTO) 0.3 X10'3 (0-0.9); EOSINOPHILS % (AUTO) 2.9 % (0-6); HEMATOCRIT 31.4 % (42.0-52.0); HEMOGLOBIN 10.5 g/dl (14.0-17.9); LYMPHOCYTES # (AUTO) 0.9 X10'3 (1.1-4.8); MEAN CORPUSCULAR HEMOGLOBIN 28.8 PG (27.0-31.0); MEAN CORPUSCULAR HGB CONC 33.6 g/dL (33.0-36.5); MEAN CORPUSCULAR VOLUME 85.6 FL (78-98); MEAN PLATELET VOLUME 7.7 FL (7.4-10.4); MONOCYTES # (AUTO) 1.1 X10'3 (0-0.9); NEUTROPHILS # (AUTO) 6.5 X10'3 (1.8-7.7); NEUTROPHILS % (AUTO) 73.8 % (42-75); PLATELET COUNT 249 X10'3 (140-440); RED BLOOD COUNT 3.66 X10'6 (4.70-6.10); RED CELL DISTRIBUTION WIDTH 18.1 % (11.5-14.5); WHITE BLOOD COUNT 8.8 X10'3 (4.5-11.0)
[2020-04-24 19:06] LABS: ALANINE AMINOTRANSFERASE 22 U/L (12-78); ALBUMIN 2.8 G/DL (3.4-5.0); ALBUMIN/GLOBULIN RATIO 0.7 (1.1-1.5); ALKALINE PHOSPHATASE 56 IU/L (46-116); ANION GAP 11 (8-16); ASPARTATE AMINO TRANSFERASE 16 U/L (10-37); BILIRUBIN,TOTAL 0.4 MG/DL (0.1-1.0); BLOOD UREA NITROGEN 46 MG/DL (7-18); BUN/CREATININE RATIO 21.5 (5.4-32.0); CALCIUM 8.7 MG/DL (8.5-10.1); CHLORIDE 109 MMOL/L (99-107); CREATININE 2.14 MG/DL (0.60-1.10); GLUCOSE 93 MG/DL (70-104); POTASSIUM 3.9 MMOL/L (3.5-5.1); SODIUM 145 MMOL/L (135-145); TOTAL CARBON DIOXIDE 25.1 MMOL/L (24-32); TOTAL PROTEIN 6.7 G/DL (6.4-8.2); eGFR 31 ML/MIN
[2020-04-24 19:22] LABS: CLARITY,URINE CLEAR (Clear); COLOR,URINE YELLOW (Yellow); GLUCOSE, URINE NEGATIVE (Neg); KETONES,URINE NEGATIVE (Neg); LEUKOCYTE ESTERASE ,URINE NEGATIVE (Neg); NITRITES, URINE NEGATIVE (Neg); OCCULT BLOOD,URINE LARGE (Neg); PH,URINE 5.5 (4.8-8.0); PROTEIN,URINE 100 mg/dl (Neg); UROBILINOGEN,URINE 0.2 E.U/dL (0.2-1.0)
[2020-04-24 19:25] LABS: UA COLLECTION TYPE URINAL
[2020-04-24 19:25] LABS: MAGNESIUM 1.8 MG/DL (1.5-2.4); PHOSPHORUS 4.4 MG/DL (2.3-4.5)
[2020-04-24 19:40] LABS: BACTERIA,URINE NONE SEEN /HPF (Neg); RBC,URINE 50-100 /HPF (0-2); URINE AMPHETAMINE SCREEN POSITIVE (Neg); URINE BARBITUATE SCREEN NEGATIVE (Neg); URINE BENZODIAZEPINES SCREEN NEGATIVE (Neg); URINE CANNABINOID SCREEN POSITIVE (Neg); URINE COCAINE SCREEN NEGATIVE (Neg); URINE METHADONE SCREEN NEGATIVE (Neg); URINE OPIATE SCREEN NEGATIVE (Neg); URINE PHENCYCLIDINE SCREEN NEGATIVE (Neg); WBC,URINE 0-4 /HPF (0-4)
[2020-04-24] MEDS ORDERED: morphine 4 MG/ML inj SYRINge IM ONE (19:40)
[2020-04-24 19:42] LABS: MUCUS STRANDS FEW /LPF (Neg); SQUAMOUS EPITHELIAL CELL,UR FEW /LPF (FEW)
[2020-04-24] MEDS ORDERED: morphine 4 MG/ML inj SYRINge IV ONE (19:45)
[2020-04-24] MEDS ORDERED: bisacodyl 10mg suppository rectal RC PRN (19:50)
[2020-04-24] MEDS ORDERED: LORazepam 2 mg/ml vial IV PRN (19:50)
[2020-04-24] MEDS ORDERED: magnesium 2GM in 50ml NS 50 ML IV PRN (19:50)
[2020-04-24] MEDS ORDERED: magnesium hydroxide 30ml (MOM) UD suspension PO PRN (19:50)
[2020-04-24] MEDS ORDERED: magnesium 4gm in 100ml NS 100 ML IV PRN (19:50)
[2020-04-24] MEDS ORDERED: mag hydrox/Alum hydrox/simeth 30ml oral suspension PO PRN (19:50)
[2020-04-24] MEDS ORDERED: potassium CL 10mEq/100ml bag 100 ML IV PRN ×2 (19:50)
[2020-04-24] MEDS ORDERED: magnesium Cl slow-release 64mg tablet PO PRN (19:50)
[2020-04-24] MEDS ORDERED: ondansetron/PF 4mg/2ml inj IV PRN (19:50)
[2020-04-24] MEDS ORDERED: acetaminophen 325mg tablet PO PRN (19:50)
[2020-04-24] MEDS ORDERED: potassium Cl 20 mEq SR tablet PO PRN (19:50)
[2020-04-24] MEDS: K and/or MAG REPLACEMENT MC SCH (20:00)
[2020-04-24] MEDS: docusate sod 100mg capsule PO SCH (20:08)
[2020-04-24] MEDS: furosemide 40mg/4ml inj IV SCH (20:08)
[2020-04-24 20:14] LABS: ETHANOL < 0.010 GM/DL (0.0-0.010)
[2020-04-24] MEDS: metoprolol tartrate 1mg/ml inj IV SCH ×3 (20:45→21:10)
[2020-04-24] MEDS ORDERED: metoprolol tartrate 25mg tablet PO ONE (21:05)
[2020-04-24] MEDS: amLODIPine 5mg tablet PO SCH (21:19)
--- NOTE | 2020-04-24 21:28 | NUR ---
Patient in ER. I have received report from Cap RN and had the opportunity to ask questions.
[2020-04-24 21:45] LABS: TROPONIN I < 0.04 NG/ML (0.0-0.05)
[2020-04-24 22:00] VITALS: BP 146/89
[2020-04-24] MEDS: HYDROcodone/acetaminophen 5mg/325mg tablet PO PRN (22:15)
--- NOTE | 2020-04-24 23:47 | NUR ---
Patient arrived on unit from the ER via gurney. Room number 3010. Vitals Taken 146/89, RA o2 96%, HR 66, temp 98, resp 26. Pt is alert, physical assessment and darting done, MRSA swab done.
--- NOTE | 2020-04-25 00:19 | NUR ---
John murray for order if applicable. PAGER ID: [phone] MESSAGE: Re: rox bobo. Rm [id number]. Pt arrived to unit with abi, but no order. Can I get an order. Thanks! Stacie
[2020-04-25 02:00] VITALS: BP 146/82
[2020-04-25 06:00] VITALS: BP 158/93
--- NOTE | 2020-04-25 06:00 | NUR ---
Patient in room PCU 3010. I have received report from Monica MCCONNELL and had the opportunity to ask questions and assume patient care. Patient is sleeping.
[2020-04-25 06:11] LABS: ALANINE AMINOTRANSFERASE 19 U/L (12-78); ALBUMIN 2.7 G/DL (3.4-5.0); ALBUMIN/GLOBULIN RATIO 0.7 (1.1-1.5); ALKALINE PHOSPHATASE 55 IU/L (46-116); ANION GAP 10 (8-16); ASPARTATE AMINO TRANSFERASE 14 U/L (10-37); BILIRUBIN,TOTAL 0.5 MG/DL (0.1-1.0); BLOOD UREA NITROGEN 42 MG/DL (7-18); BUN/CREATININE RATIO 20.9 (5.4-32.0); CALCIUM 8.9 MG/DL (8.5-10.1); CHLORIDE 106 MMOL/L (99-107); CREATININE 2.01 MG/DL (0.60-1.10); GLUCOSE 98 MG/DL (70-104); MAGNESIUM 1.7 MG/DL (1.5-2.4); POTASSIUM 3.4 MMOL/L (3.5-5.1); SODIUM 143 MMOL/L (135-145); TOTAL CARBON DIOXIDE 26.7 MMOL/L (24-32); TOTAL PROTEIN 6.7 G/DL (6.4-8.2); eGFR 34 ML/MIN
--- NOTE | 2020-04-25 06:26 | NUR ---
Problems reprioritized. Patient report given, questions answered & plan of care reviewed with Charley MCCONNELL.
[2020-04-25 06:41] LABS: BASOPHILS % (AUTO) 0.5 % (0-1); EOSINOPHILS # (AUTO) 0.3 X10'3 (0-0.9); EOSINOPHILS % (AUTO) 3.9 % (0-6); HEMATOCRIT 33.5 % (42.0-52.0); HEMOGLOBIN 10.9 g/dl (14.0-17.9); LYMPHOCYTES # (AUTO) 0.9 X10'3 (1.1-4.8); LYMPHOCYTES % (AUTO) 13.9 % (21-51); MEAN CORPUSCULAR HEMOGLOBIN 28.2 PG (27.0-31.0); MEAN CORPUSCULAR HGB CONC 32.6 g/dL (33.0-36.5); MEAN CORPUSCULAR VOLUME 86.6 FL (78-98); MEAN PLATELET VOLUME 7.9 FL (7.4-10.4); NEUTROPHILS # (AUTO) 4.6 X10'3 (1.8-7.7); NEUTROPHILS % (AUTO) 67.7 % (42-75); PLATELET COUNT 250 X10'3 (140-440); RED BLOOD COUNT 3.87 X10'6 (4.70-6.10); RED CELL DISTRIBUTION WIDTH 17.9 % (11.5-14.5); WHITE BLOOD COUNT 6.8 X10'3 (4.5-11.0)
[2020-04-25] MEDS: K and/or MAG REPLACEMENT MC SCH ×2 (08:00→19:34)
[2020-04-25] MEDS: furosemide 40mg/4ml inj IV SCH ×2 (08:02→19:24)
[2020-04-25] MEDS: docusate sod 100mg capsule PO SCH ×2 (08:03→19:23)
[2020-04-25] MEDS: amLODIPine 5mg tablet PO SCH (08:03)
[2020-04-25] MEDS: enoxaparin 40mg/0.4ml syringe SQ SCH (08:04)
[2020-04-25] MEDS: metoprolol tartrate 25mg tablet PO SCH ×2 (08:04→19:24)
[2020-04-25] MEDS: potassium Cl 20 mEq SR tablet PO PRN ×3 (08:05→16:45)
[2020-04-25 11:00] VITALS: BP 148/93
[2020-04-25] MEDS: HYDROcodone/acetaminophen 5mg/325mg tablet PO PRN ×2 (11:21→16:45)
[2020-04-25 15:00] VITALS: BP 136/88
[2020-04-25 18:00] VITALS: BP 146/91
--- NOTE | 2020-04-25 18:27 | NUR ---
Problems reprioritized. Patient report given, questions answered & plan of care reviewed with Fatuma MCCONNELL[].
--- NOTE | 2020-04-25 18:30 | NUR ---
Patient in room PCU 3010. I have received report from rowdy Whitehead and had the opportunity to ask questions and assume patient care.
--- NOTE | 2020-04-25 19:41 | NUR ---
PAGED [phone] MIGUEL PUENTE WHO HAS ARM FX AND CHR BACK PAIN IS IN SEVERE PAIN. HE TAKES NORCO 5. WONDERING IF HE CAN HAVE NORCO 10 INSTEAD.THANK YOU. FROM #[id number] NIVIA
[2020-04-25] MEDS: HYDROcodone/acetaminophen 10/325mg tab PO PRN (20:43)
[2020-04-25 22:00] VITALS: BP 146/93
[2020-04-26] MEDS: HYDROcodone/acetaminophen 10/325mg tab PO PRN ×4 (00:24→23:32)
[2020-04-26 02:13] VITALS: BP 150/88
[2020-04-26 06:00] VITALS: BP 145/90
--- NOTE | 2020-04-26 06:30 | NUR ---
Patient in room PCU 3010. I have received report from ENEDINA GONZÁLES and had the opportunity to ask questions and assume patient care.
--- NOTE | 2020-04-26 06:49 | NUR ---
Problems reprioritized. Patient report given, questions answered & plan of care reviewed with ENEDINA TAPIA.
[2020-04-26 06:58] LABS: BASOPHILS % (AUTO) 0.6 % (0-1); EOSINOPHILS # (AUTO) 0.3 X10'3 (0-0.9); EOSINOPHILS % (AUTO) 4.3 % (0-6); HEMATOCRIT 33.4 % (42.0-52.0); LYMPHOCYTES % (AUTO) 17.1 % (21-51); MEAN CORPUSCULAR HEMOGLOBIN 28.2 PG (27.0-31.0); MEAN CORPUSCULAR VOLUME 85.5 FL (78-98); MEAN PLATELET VOLUME 7.5 FL (7.4-10.4); MONOCYTES # (AUTO) 0.7 X10'3 (0-0.9); MONOCYTES % (AUTO) 11.2 % (2-12); NEUTROPHILS % (AUTO) 66.8 % (42-75); PLATELET COUNT 266 X10'3 (140-440); RED BLOOD COUNT 3.91 X10'6 (4.70-6.10); RED CELL DISTRIBUTION WIDTH 17.7 % (11.5-14.5)
[2020-04-26 07:18] LABS: ALANINE AMINOTRANSFERASE 15 U/L (12-78); ALBUMIN 2.6 G/DL (3.4-5.0); ALBUMIN/GLOBULIN RATIO 0.7 (1.1-1.5); ALKALINE PHOSPHATASE 54 IU/L (46-116); ANION GAP 8 (8-16); ASPARTATE AMINO TRANSFERASE 18 U/L (10-37); BILIRUBIN,TOTAL 0.3 MG/DL (0.1-1.0); BLOOD UREA NITROGEN 40 MG/DL (7-18); BUN/CREATININE RATIO 20.2 (5.4-32.0); CALCIUM 8.9 MG/DL (8.5-10.1); CHLORIDE 105 MMOL/L (99-107); CREATININE 1.98 MG/DL (0.60-1.10); GLUCOSE 94 MG/DL (70-104); MAGNESIUM 1.6 MG/DL (1.5-2.4); SODIUM 142 MMOL/L (135-145); TOTAL CARBON DIOXIDE 28.7 MMOL/L (24-32); TOTAL PROTEIN 6.6 G/DL (6.4-8.2); eGFR 34 ML/MIN
[2020-04-26] MEDS: docusate sod 100mg capsule PO SCH ×2 (07:49→19:56)
[2020-04-26] MEDS: furosemide 40mg/4ml inj IV SCH ×2 (07:49→19:56)
[2020-04-26] MEDS: amLODIPine 5mg tablet PO SCH (07:50)
[2020-04-26] MEDS: metoprolol tartrate 25mg tablet PO SCH ×2 (07:50→19:59)
[2020-04-26] MEDS: enoxaparin 40mg/0.4ml syringe SQ SCH (07:51)
[2020-04-26] MEDS: K and/or MAG REPLACEMENT MC SCH ×2 (08:00→20:00)
[2020-04-26 11:00] VITALS: BP 136/83
--- NOTE | 2020-04-26 11:00 | NUR ---
PAGED PT:R/T [phone], PLEASE CALL REGINA [phone], TY
--- NOTE | 2020-04-26 12:00 | NUR ---
PAGER ID: [phone] MESSAGE: DR. HUFFMAN, 301A/KWAME, REFUSED PT AT THIS TIME. "TO TIRED FROM RECEIVEING BED BATH". THEY ARE GOING TO ATTEMPT AGAIN AT 1400. REGINA [phone]/[phone]. TY
[2020-04-26 15:00] VITALS: BP 133/83
--- NOTE | 2020-04-26 18:38 | NUR ---
Problems reprioritized. Patient report given, questions answered & plan of care reviewed with ENEDINA WIGGINS.
--- NOTE | 2020-04-26 18:46 | NUR ---
Patient in room PCU 3010. I have received report from ENEDINA TAPIA and had the opportunity to ask questions and assume patient care. PATIENT AWAKE FOR BEDSIDE REPORT. ON ROOM AIR AND SALINE LOCKED AT THIS TIME. PATIENT COMPLAINING OF BURNING WITH URINATION. WILL NOTIFY MD AND CONTINUE TO MONITOR CLOSELY.
[2020-04-26 18:48] VITALS: BP 146/88
[2020-04-26 22:55] VITALS: BP 144/83
--- NOTE | 2020-04-26 23:25 | NUR ---
PAGER ID: [phone] MESSAGE: Ext. [phone], ENEDINA Roth for patient in 3010 admitted 04/24 for lower extremity edema and R arm pain. Patient complaining of new severe pain on urination. UA on 04/24 showed protein and blood in urine. No ABx for patient. Will administer Gideon 10.
[2020-04-26] MEDS ORDERED: phenazopyridine 100mg tablet PO ONE (23:35)
--- NOTE | 2020-04-27 02:08 | NUR ---
promotional table spacer PAGER ID: [phone] MESSAGE: [phone] Everette Whitten: BP 186/108 no PRNs, takes Norvasc and metoprolol daily. Can I get a PRN? Mendy MCCONNELL [phone]
[2020-04-27 02:34] VITALS: BP 186/108
[2020-04-27] MEDS ORDERED: hydrALAZINE 20mg/ml inj. IV PRN (03:50)
[2020-04-27] MEDS: HYDROcodone/acetaminophen 10/325mg tab PO PRN ×2 (04:43→11:25)
[2020-04-27 04:45] VITALS: BP 142/92
--- NOTE | 2020-04-27 06:00 | NUR ---
Patient in room U 3010. I have received report from Gonzalez MCCONNELL and had the opportunity to ask questions and assume patient care. Patient is sleeping in bed.
[2020-04-27 06:04] LABS: BASOPHILS % (AUTO) 0.4 % (0-1); EOSINOPHILS # (AUTO) 0.2 X10'3 (0-0.9); EOSINOPHILS % (AUTO) 2.2 % (0-6); HEMATOCRIT 35.6 % (42.0-52.0); HEMOGLOBIN 11.8 g/dl (14.0-17.9); LYMPHOCYTES # (AUTO) 0.8 X10'3 (1.1-4.8); LYMPHOCYTES % (AUTO) 9.8 % (21-51); MEAN CORPUSCULAR HEMOGLOBIN 28.5 PG (27.0-31.0); MEAN CORPUSCULAR HGB CONC 33.2 g/dL (33.0-36.5); MEAN PLATELET VOLUME 7.6 FL (7.4-10.4); MONOCYTES # (AUTO) 0.9 X10'3 (0-0.9); MONOCYTES % (AUTO) 10.4 % (2-12); NEUTROPHILS # (AUTO) 6.6 X10'3 (1.8-7.7); NEUTROPHILS % (AUTO) 77.2 % (42-75); PLATELET COUNT 257 X10'3 (140-440); RED BLOOD COUNT 4.14 X10'6 (4.70-6.10); WHITE BLOOD COUNT 8.5 X10'3 (4.5-11.0)
--- NOTE | 2020-04-27 06:15 | NUR ---
Problems reprioritized. Patient report given, questions answered & plan of care reviewed with ENEDINA AVILEZ.
--- NOTE | 2020-04-27 06:16 | NUR ---
PRN IV HYDRALAZINE FOR SYS >160
[2020-04-27 06:29] LABS: ALANINE AMINOTRANSFERASE 19 U/L (12-78); ALBUMIN 2.8 G/DL (3.4-5.0); ALBUMIN/GLOBULIN RATIO 0.7 (1.1-1.5); ALKALINE PHOSPHATASE 53 IU/L (46-116); ANION GAP 9 (8-16); ASPARTATE AMINO TRANSFERASE 16 U/L (10-37); BILIRUBIN,TOTAL 0.3 MG/DL (0.1-1.0); BLOOD UREA NITROGEN 43 MG/DL (7-18); BUN/CREATININE RATIO 20.1 (5.4-32.0); CALCIUM 8.6 MG/DL (8.5-10.1); CHLORIDE 103 MMOL/L (99-107); CREATININE 2.14 MG/DL (0.60-1.10); GLUCOSE 99 MG/DL (70-104); MAGNESIUM 1.6 MG/DL (1.5-2.4); POTASSIUM 4.3 MMOL/L (3.5-5.1); SODIUM 139 MMOL/L (135-145); TOTAL CARBON DIOXIDE 27.5 MMOL/L (24-32); TOTAL PROTEIN 6.8 G/DL (6.4-8.2); eGFR 31 ML/MIN
[2020-04-27 07:00] VITALS: BP 142/92
[2020-04-27] MEDS: amLODIPine 5mg tablet PO SCH (07:55)
[2020-04-27] MEDS: furosemide 40mg/4ml inj IV SCH (07:56)
[2020-04-27 07:57] VITALS: BP_SYST 142
[2020-04-27] MEDS: metoprolol tartrate 25mg tablet PO SCH (07:57)
[2020-04-27] MEDS: K and/or MAG REPLACEMENT MC SCH (07:57)
[2020-04-27] MEDS: docusate sod 100mg capsule PO SCH (07:57)
[2020-04-27] MEDS: enoxaparin 40mg/0.4ml syringe SQ SCH (07:58)
[2020-04-27] MEDS ORDERED: tamsulosin 0.4mg capsule PO SCH (10:05)
[2020-04-27] MEDS ORDERED: FURO20TA4 PO (10:11)
[2020-04-27] MEDS ORDERED: METO25TA6 PO (10:11)
[2020-04-27] MEDS ORDERED: FLO0.4C PO (10:11)
[2020-04-27] MEDS ORDERED: AVO0.5C PO (10:11)
[2020-04-27] MEDS ORDERED: NOR5T PO (10:11)
--- NOTE | 2020-04-27 11:35 | NUR ---
Patient was discharged at 1135. Patient is homeless. He left on his personal power wheelchair. He was given Rx for xray and directions to follow up with Dr. Robles in 3 weeks. He crumbled it up and threw it away stating that he would take the splint off himself in 3 weeks. I tried to convince him to take it with him and think about it at least but he declined stating it was a waste of time. He declined discharge wound care pics. He was given discharge packet. He was inattentive and stated he would not follow up and would not read any directions. RXs [facility] called into [facility] [address]. Patient was notified they would be there for him to berry picker. PIV was removed with cannula intact.
--- NOTE | 2020-04-27 12:09 | NUR ---
Saw pt earlier today, around 0900 for WOC assessment. Pt gave consent to be seen. Gluteal sulcus area had been previously damaged, likely IAD or MASD, but was healing well. Recommended barrier spray and calazime cream.
[2020-04-28] MEDS ORDERED: dutasteride 0.5 MG capsule PO SCH (08:00)
== END 2020-04-27 11:37 | disposition home or self-care (01) | DRG 342 ==
LOC: ER 16:25 → ED HOLD 19:50 → PCU 3S 21:50
PROVIDERS: ADMIT Family Medicine; ATTEND Internal Medicine
PROC: 2W3FX1Z Immobilization of Left Hand using Splint (ICD-10-PCS; principal; 2020-04-27)
DX: S52.614A Nondisplaced fracture of right ulna styloid process, initial encounter for closed fracture (principal); N17.9 Acute kidney failure, unspecified; I13.0 Hypertensive heart and chronic kidney disease with heart failure and stage 1 through stage 4 chronic kidney disease, or unspecified chronic kidney disease; I50.9 Heart failure, unspecified; F15.90 Other stimulant use, unspecified, uncomplicated; F12.90 Cannabis use, unspecified, uncomplicated; W18.39XA Other fall on same level, initial encounter; G89.29 Other chronic pain; M10.9 Gout, unspecified; F17.210 Nicotine dependence, cigarettes, uncomplicated; N18.9 Chronic kidney disease, unspecified; Z59.0 Homelessness; Z86.73 Personal history of transient ischemic attack (TIA), and cerebral infarction without residual deficits; Z88.8 Allergy status to other drugs, medicaments and biological substances; Y93.89 Activity, other specified; Y92.89 Other specified places as the place of occurrence of the external cause; Y99.8 Other external cause status
CPT/HCPCS: 36415; 71045; 73110; 80053; 80305; 80320; 81001; 83605; 83735; 83880; 84100; 84484; 85025; 87081; 93005; 97110; 97116; 97162; 97530; 99285; G0378; J1650; J1940; J2060; J2270; J3490

== ENCOUNTER 2020-05-05 15:02 | Inpatient (IN) | payer MEDICAID ==
[~2020-05-05] VITALS: Ht 177.8 cm; Wt 95.0 kg
[~2020-05-05 15:02] MED LIST changes: -ASPI-1071 PO; -ATOR20TA66 PO; +AVO0.5C PO; +FLO0.4C PO; +FURO20TA4 PO; -METO-395 PO; +METO25TA6 PO; -NO HOME MEDS; -tamsulosin capsule PO
[2020-05-05 15:57] LABS: CLARITY,URINE TURBID (Clear); COLOR,URINE YELLOW (Yellow); GLUCOSE, URINE NEGATIVE (Neg); KETONES,URINE NEGATIVE (Neg); LEUKOCYTE ESTERASE ,URINE MODERATE (Neg); NITRITES, URINE POSITIVE (Neg); OCCULT BLOOD,URINE LARGE (Neg); PH,URINE 6.5 (4.8-8.0); PROTEIN,URINE 100 mg/dl (Neg); UROBILINOGEN,URINE 0.2 E.U/dL (0.2-1.0)
[2020-05-05 15:58] LABS: UA COLLECTION TYPE CLN CATCH MIDSTREAM
[2020-05-05 16:09] LABS: WBC,URINE TNTC /HPF (0-4)
[2020-05-05] MEDS ORDERED: normal saline 1000ML IV soln IVB ONE (16:10)
[2020-05-05 16:11] LABS: BACTERIA,URINE 1+ /HPF (Neg); SQUAMOUS EPITHELIAL CELL,UR FEW /LPF (FEW)
[2020-05-05 16:12] LABS: MUCUS STRANDS FEW /LPF (Neg)
[2020-05-05] MEDS ORDERED: CefTRIAXone inj 2,000 MG in normal saline 100ml IV soln 100 ML IV ONE (16:35)
[2020-05-05] MEDS ORDERED: CefTRIAXone 2gm/D5W 50ml 50 ML IV ONE (16:35)
[2020-05-05 17:00] LABS: BASOPHILS % (AUTO) 0.5 % (0-1); EOSINOPHILS # (AUTO) 0.3 X10'3 (0-0.9); HEMOGLOBIN 11.4 g/dl (14.0-17.9); LYMPHOCYTES # (AUTO) 1.2 X10'3 (1.1-4.8); LYMPHOCYTES % (AUTO) 13.3 % (21-51); MEAN CORPUSCULAR HEMOGLOBIN 28.6 PG (27.0-31.0); MEAN CORPUSCULAR HGB CONC 33.7 g/dL (33.0-36.5); MEAN PLATELET VOLUME 7.6 FL (7.4-10.4); MONOCYTES # (AUTO) 1.1 X10'3 (0-0.9); MONOCYTES % (AUTO) 11.8 % (2-12); NEUTROPHILS # (AUTO) 6.6 X10'3 (1.8-7.7); NEUTROPHILS % (AUTO) 71.4 % (42-75); PLATELET COUNT 400 X10'3 (140-440); RED BLOOD COUNT 3.99 X10'6 (4.70-6.10); RED CELL DISTRIBUTION WIDTH 17.4 % (11.5-14.5); WHITE BLOOD COUNT 9.3 X10'3 (4.5-11.0)
[2020-05-05 17:13] LABS: ALANINE AMINOTRANSFERASE 23 U/L (12-78); ALBUMIN 3.2 G/DL (3.4-5.0); ALBUMIN/GLOBULIN RATIO 0.8 (1.1-1.5); ALKALINE PHOSPHATASE 69 IU/L (46-116); ANION GAP 15 (8-16); ASPARTATE AMINO TRANSFERASE 16 U/L (10-37); BILIRUBIN,TOTAL 0.3 MG/DL (0.1-1.0); BLOOD UREA NITROGEN 78 MG/DL (7-18); BUN/CREATININE RATIO 14.1 (5.4-32.0); CALCIUM 8.6 MG/DL (8.5-10.1); CHLORIDE 102 MMOL/L (99-107); CREATININE 5.55 MG/DL (0.60-1.10); GLUCOSE 132 MG/DL (70-104); POTASSIUM 3.5 MMOL/L (3.5-5.1); SODIUM 140 MMOL/L (135-145); TOTAL CARBON DIOXIDE 23.5 MMOL/L (24-32); TOTAL PROTEIN 7.3 G/DL (6.4-8.2); eGFR 10 ML/MIN
[2020-05-05] MEDS ORDERED: LIDOcaine 2% 10ml TOPICAL JELLY (Urojet) TP ONE (17:25)
[2020-05-05] MEDS ORDERED: morphine 4 MG/ML inj SYRINge IV ONE (18:05)
[2020-05-05] MEDS ORDERED: bisacodyl 10mg suppository rectal RC PRN (18:20)
[2020-05-05] MEDS ORDERED: morphine 2 MG/ML inj. syringe IV PRN ×2 (18:20)
[2020-05-05] MEDS ORDERED: MESSAGE TO PHARMACY PO ONE (18:20)
[2020-05-05] MEDS ORDERED: glucagon, human recombinant 1mg kit SUBCUT PRN (18:20)
[2020-05-05] MEDS ORDERED: diphenhydrAMINE 25mg capsule PO PRN (18:20)
[2020-05-05] MEDS ORDERED: dextrose 50%-water 50ml dispensing syringe IV PRN ×2 (18:20)
[2020-05-05] MEDS ORDERED: acetaminophen 650mg rectal suppository RC PRN (18:20)
[2020-05-05] MEDS ORDERED: magnesium Cl slow-release 64mg tablet PO PRN (18:20)
[2020-05-05] MEDS ORDERED: insulin Lispro (HumaLOG) vial - multi-dose SQ SCH (18:20)
[2020-05-05] MEDS ORDERED: potassium CL 10mEq/100ml bag 100 ML IV PRN ×2 (18:20)
[2020-05-05] MEDS ORDERED: magnesium hydroxide 30ml (MOM) UD suspension PO PRN (18:20)
[2020-05-05] MEDS ORDERED: potassium Cl 20 mEq SR tablet PO PRN ×2 (18:20)
[2020-05-05] MEDS ORDERED: ondansetron/PF 4mg/2ml inj IV PRN (18:20)
[2020-05-05] MEDS ORDERED: magnesium 4gm in 100ml NS 100 ML IV PRN (18:20)
[2020-05-05] MEDS ORDERED: magnesium 2GM in 50ml NS 50 ML IV PRN (18:20)
[2020-05-05] MEDS ORDERED: acetaminophen 325mg tablet PO PRN ×2 (18:20)
[2020-05-05] MEDS ORDERED: mag hydrox/Alum hydrox/simeth 30ml oral suspension PO PRN (18:20)
[2020-05-05] MEDS ORDERED: dextrose ORAL solution 15 GM/59 ML bottle PO PRN ×2 (18:20)
[2020-05-05] MEDS ORDERED: LORazepam 2 mg/ml vial IV ONE (18:45)
[2020-05-05 18:47] LABS: HEMOGLOBIN A1C 5.3 % (4.5-6.2)
[2020-05-05 18:52] LABS: CLARITY,URINE CLOUDY (Clear); COLOR,URINE YELLOW (Yellow); GLUCOSE, URINE NEGATIVE (Neg); KETONES,URINE NEGATIVE (Neg); LEUKOCYTE ESTERASE ,URINE LARGE (Neg); NITRITES, URINE POSITIVE (Neg); OCCULT BLOOD,URINE LARGE (Neg); PROTEIN,URINE >=300 mg/dl (Neg); UROBILINOGEN,URINE 0.2 E.U/dL (0.2-1.0)
[2020-05-05] MEDS: normal saline 1000ml 1,000 ML IV SCH (18:52)
[2020-05-05 18:53] LABS: UA COLLECTION TYPE STRAIGHT CATH
[2020-05-05 19:05] LABS: MUCUS STRANDS FEW /LPF (Neg); SQUAMOUS EPITHELIAL CELL,UR FEW /LPF (FEW); TRANSITIONAL EPI CELLS,URINE FEW /HPF; WBC CLUMPS,URINE MODERATE /HPF (NEGATIVE); WBC,URINE TNTC /HPF (0-4)
[2020-05-05 19:06] LABS: BACTERIA,URINE 2+ /HPF (Neg)
[2020-05-05 19:24] LABS: UA EOSINOPHILS FEW EOS /HPF
[2020-05-05] MEDS ORDERED: AMLO-314 PO (19:26)
[2020-05-05] MEDS ORDERED: FLO0.4C PO (19:26)
[2020-05-05] MEDS ORDERED: FURO-150 PO (19:26)
[2020-05-05] MEDS ORDERED: DUTA0.5C40 PO (19:26)
[2020-05-05] MEDS ORDERED: METO25TA6 PO (19:26)
[2020-05-05] MEDS: K and/or MAG REPLACEMENT MC SCH (19:58)
--- NOTE | 2020-05-05 20:03 | NUR ---
BREAKING PRIMARY RN. PT NOT IN ANY SIGNS OF DISTRESS OR DISCOMFORT. WILL CONTINUE TO MONITOR.
[2020-05-05] MEDS: heparin, porcine 5000 units/ml vial SQ SCH (20:59)
[2020-05-05] MEDS: insulin glargine (Lantus) pen - multi-dose SQ SCH (20:59)
[2020-05-06] MEDS: pantoprazole 40 MG vial IV SCH ×2 (00:20→08:42)
--- NOTE | 2020-05-06 01:30 | NUR ---
Received report from Amanda MCCONNELL from the ER. I have had the opportunity to ask questions.
[2020-05-06] MEDS: normal saline 1000ml 1,000 ML IV SCH ×3 (01:45→23:15)
--- NOTE | 2020-05-06 01:45 | NUR ---
Patient has arrived from the ER via gurney with Amanda MCCONNELL. Patient is slightly confused AOx2 for name and place. His vitals, BP 134/77, Temperature 98.5, WI is 68, Respirations 16, O2 96% on room air, no pain. MRSA sample was taken, two RN skin check was done, Physical assessment was performed. Pt has a alex catheter placed in ER for retention, NS running at 125 ml/hr.
[2020-05-06 02:08] LABS: URINE AMPHETAMINE SCREEN POSITIVE (Neg); URINE BARBITUATE SCREEN NEGATIVE (Neg); URINE BENZODIAZEPINES SCREEN NEGATIVE (Neg); URINE CANNABINOID SCREEN POSITIVE (Neg); URINE COCAINE SCREEN NEGATIVE (Neg); URINE METHADONE SCREEN NEGATIVE (Neg); URINE OPIATE SCREEN NEGATIVE (Neg); URINE PHENCYCLIDINE SCREEN NEGATIVE (Neg)
[2020-05-06 05:37] LABS: BASOPHILS % (AUTO) 0.4 % (0-1); EOSINOPHILS # (AUTO) 0.3 X10'3 (0-0.9); EOSINOPHILS % (AUTO) 3.8 % (0-6); HEMATOCRIT 31.7 % (42.0-52.0); HEMOGLOBIN 10.4 g/dl (14.0-17.9); LYMPHOCYTES # (AUTO) 0.9 X10'3 (1.1-4.8); LYMPHOCYTES % (AUTO) 12.5 % (21-51); MEAN CORPUSCULAR HEMOGLOBIN 28.2 PG (27.0-31.0); MEAN CORPUSCULAR HGB CONC 32.7 g/dL (33.0-36.5); MEAN CORPUSCULAR VOLUME 86.3 FL (78-98); MEAN PLATELET VOLUME 7.8 FL (7.4-10.4); MONOCYTES % (AUTO) 12.7 % (2-12); NEUTROPHILS # (AUTO) 5.3 X10'3 (1.8-7.7); NEUTROPHILS % (AUTO) 70.6 % (42-75); PLATELET COUNT 312 X10'3 (140-440); RED BLOOD COUNT 3.67 X10'6 (4.70-6.10); RED CELL DISTRIBUTION WIDTH 17.8 % (11.5-14.5); WHITE BLOOD COUNT 7.6 X10'3 (4.5-11.0)
[2020-05-06 05:54] LABS: ALANINE AMINOTRANSFERASE 19 U/L (12-78); ALBUMIN 2.5 G/DL (3.4-5.0); ALBUMIN/GLOBULIN RATIO 0.7 (1.1-1.5); ALKALINE PHOSPHATASE 52 IU/L (46-116); ANION GAP 10 (8-16); ASPARTATE AMINO TRANSFERASE 18 U/L (10-37); BILIRUBIN,TOTAL 0.2 MG/DL (0.1-1.0); BLOOD UREA NITROGEN 69 MG/DL (7-18); BUN/CREATININE RATIO 17.9 (5.4-32.0); CALCIUM 8.2 MG/DL (8.5-10.1); CHLORIDE 107 MMOL/L (99-107); CHOL/HDL RATIO 3.2 (0.00-4.99); CHOLESTEROL 106 MG/DL (0-200); CREATININE 3.86 MG/DL (0.60-1.10); GLUCOSE 98 MG/DL (70-104); HDL CHOLESTEROL 33 MG/DL (35-60); LDL CHOLESTEROL 56 MG/DL (50-100); MAGNESIUM 1.9 MG/DL (1.5-2.4); PHOSPHORUS 5.7 MG/DL (2.3-4.5); POTASSIUM 3.4 MMOL/L (3.5-5.1); SODIUM 141 MMOL/L (135-145); TOTAL CARBON DIOXIDE 24.3 MMOL/L (24-32); TOTAL PROTEIN 6.1 G/DL (6.4-8.2); TRIGLYCERIDES 86 MG/DL (20-135); eGFR 16 ML/MIN
--- NOTE | 2020-05-06 06:26 | NUR ---
Problems reprioritized. Patient report given, questions answered & plan of care reviewed with Bri Duenas.
--- NOTE | 2020-05-06 06:50 | NUR ---
Patient in room PCU 3013. I have received report from ENEDINA Jay and had the opportunity to ask questions and assume patient care. pt nauseated, BP 182/83. Dr Aden informed, stated to give scheduled Bp med now. Addendum: 05/06/20 at 0653 by Bri Sheppard RN Wrong Pt
[2020-05-06 07:00] VITALS: BP 141/79
--- NOTE | 2020-05-06 07:32 | NUR ---
Patient in room PCU 3013. I have received report from ENEDINA Leon and had the opportunity to ask questions and assume patient care.
[2020-05-06] MEDS: K and/or MAG REPLACEMENT MC SCH ×2 (08:00→20:00)
[2020-05-06] MEDS: CefTRIAXone/D5W-Rocephin 1gm 50 ML IV SCH (08:43)
[2020-05-06] MEDS: heparin, porcine 5000 units/ml vial SQ SCH ×2 (08:44→19:28)
[2020-05-06] MEDS: metoprolol tartrate 25mg tablet PO SCH ×2 (08:51→19:27)
[2020-05-06] MEDS: tamsulosin 0.4mg capsule PO SCH (08:51)
[2020-05-06] MEDS: amLODIPine 5mg tablet PO SCH (08:51)
[2020-05-06] MEDS: dutasteride 0.5 MG capsule PO SCH (08:52)
[2020-05-06] MEDS: HYDROcodone/acetaminophen 5mg/325mg tablet PO PRN (10:01)
[2020-05-06 11:00] VITALS: BP 124/77
[2020-05-06 15:00] VITALS: BP 123/73
[2020-05-06 19:00] VITALS: BP 149/91
--- NOTE | 2020-05-06 19:05 | NUR ---
Problems reprioritized. Patient report given, questions answered & plan of care reviewed with ENEDINA Obrien.
[2020-05-06] MEDS: HYDROcodone/acetaminophen 10/325mg tab PO PRN ×2 (19:27→23:18)
[2020-05-06] MEDS: insulin glargine (Lantus) pen - multi-dose SQ SCH (21:00)
[2020-05-06 23:00] VITALS: BP 122/68
[2020-05-07] MEDS: VANCOMYCIN IV SCH ×2 (00:50→03:29)
[2020-05-07] MEDS: SODIUM CHLORIDE IV SCH ×2 (00:50→03:29)
[2020-05-07] MEDS: normal saline 1000ml 1,000 ML IV SCH ×3 (02:18→18:18)
[2020-05-07 03:00] VITALS: BP 110/65
[2020-05-07] MEDS: HYDROcodone/acetaminophen 10/325mg tab PO PRN ×4 (03:29→22:19)
[2020-05-07 06:00] VITALS: BP 174/97
--- NOTE | 2020-05-07 06:15 | NUR ---
Patient in room PCU 3013. I have received report from ENEDINA Obrien and had the opportunity to ask questions and assume patient care.
[2020-05-07 06:28] LABS: BASOPHILS % (AUTO) 0.5 % (0-1); EOSINOPHILS # (AUTO) 0.3 X10'3 (0-0.9); HEMATOCRIT 28.8 % (42.0-52.0); HEMOGLOBIN 9.6 g/dl (14.0-17.9); LYMPHOCYTES # (AUTO) 1.1 X10'3 (1.1-4.8); LYMPHOCYTES % (AUTO) 16.3 % (21-51); MEAN CORPUSCULAR HEMOGLOBIN 28.6 PG (27.0-31.0); MEAN CORPUSCULAR HGB CONC 33.3 g/dL (33.0-36.5); MEAN PLATELET VOLUME 7.8 FL (7.4-10.4); MONOCYTES # (AUTO) 0.7 X10'3 (0-0.9); MONOCYTES % (AUTO) 10.2 % (2-12); NEUTROPHILS # (AUTO) 4.9 X10'3 (1.8-7.7); PLATELET COUNT 293 X10'3 (140-440); RED BLOOD COUNT 3.34 X10'6 (4.70-6.10); RED CELL DISTRIBUTION WIDTH 17.2 % (11.5-14.5)
[2020-05-07 06:41] LABS: ALANINE AMINOTRANSFERASE 18 U/L (12-78); ALBUMIN 2.3 G/DL (3.4-5.0); ALBUMIN/GLOBULIN RATIO 0.7 (1.1-1.5); ALKALINE PHOSPHATASE 51 IU/L (46-116); ANION GAP 9 (8-16); ASPARTATE AMINO TRANSFERASE 19 U/L (10-37); BILIRUBIN,TOTAL 0.2 MG/DL (0.1-1.0); BLOOD UREA NITROGEN 51 MG/DL (7-18); BUN/CREATININE RATIO 19.8 (5.4-32.0); CALCIUM 7.7 MG/DL (8.5-10.1); CHLORIDE 107 MMOL/L (99-107); CREATININE 2.57 MG/DL (0.60-1.10); GLUCOSE 105 MG/DL (70-104); MAGNESIUM 1.7 MG/DL (1.5-2.4); PHOSPHORUS 4.4 MG/DL (2.3-4.5); POTASSIUM 3.7 MMOL/L (3.5-5.1); SODIUM 140 MMOL/L (135-145); TOTAL CARBON DIOXIDE 23.7 MMOL/L (24-32); TOTAL PROTEIN 5.7 G/DL (6.4-8.2); eGFR 25 ML/MIN
[2020-05-07] MEDS: K and/or MAG REPLACEMENT MC SCH ×2 (08:00→20:00)
[2020-05-07] MEDS: amLODIPine 5mg tablet PO SCH (08:04)
[2020-05-07] MEDS: pantoprazole 40mg Tablet.DR PO SCH (08:04)
[2020-05-07] MEDS: metoprolol tartrate 25mg tablet PO SCH ×2 (08:04→20:49)
[2020-05-07] MEDS: heparin, porcine 5000 units/ml vial SQ SCH ×2 (08:05→20:49)
[2020-05-07] MEDS: tamsulosin 0.4mg capsule PO SCH (08:05)
[2020-05-07] MEDS: CefTRIAXone/D5W-Rocephin 1gm 50 ML IV SCH (08:05)
[2020-05-07] MEDS: dutasteride 0.5 MG capsule PO SCH (08:05)
[2020-05-07 15:00] VITALS: BP 126/84
[2020-05-07 18:00] VITALS: BP 119/72
--- NOTE | 2020-05-07 18:17 | NUR ---
Problems reprioritized. Patient report given, questions answered & plan of care reviewed with ENEDINA Brooke.
[2020-05-07 22:00] VITALS: BP 141/84
[2020-05-07] MEDS ORDERED: phenazopyridine 100mg tablet PO ONE (22:05)
[2020-05-08] MEDS: normal saline 1000ml 1,000 ML IV SCH ×2 (01:33→09:40)
--- NOTE | 2020-05-08 03:24 | NUR ---
Patient in room PCU 3013. I have received report from Varsha MCCONNELL and had the opportunity to ask questions and assume patient care.
[2020-05-08] MEDS: HYDROcodone/acetaminophen 10/325mg tab PO PRN ×2 (03:45→13:37)
[2020-05-08] MEDS ORDERED: VANCOmycin 1250MG/NS 250ml Bag 250 ML IV SCH (04:00)
[2020-05-08 05:50] LABS: BASOPHILS % (AUTO) 0.6 % (0-1); EOSINOPHILS # (AUTO) 0.3 X10'3 (0-0.9); EOSINOPHILS % (AUTO) 4.2 % (0-6); HEMOGLOBIN 9.5 g/dl (14.0-17.9); LYMPHOCYTES % (AUTO) 14.7 % (21-51); MEAN CORPUSCULAR HEMOGLOBIN 28.4 PG (27.0-31.0); MEAN CORPUSCULAR HGB CONC 32.9 g/dL (33.0-36.5); MEAN CORPUSCULAR VOLUME 86.2 FL (78-98); MEAN PLATELET VOLUME 8.1 FL (7.4-10.4); MONOCYTES # (AUTO) 0.5 X10'3 (0-0.9); MONOCYTES % (AUTO) 8.3 % (2-12); NEUTROPHILS # (AUTO) 4.7 X10'3 (1.8-7.7); NEUTROPHILS % (AUTO) 72.2 % (42-75); PLATELET COUNT 275 X10'3 (140-440); RED BLOOD COUNT 3.36 X10'6 (4.70-6.10); RED CELL DISTRIBUTION WIDTH 17.7 % (11.5-14.5); WHITE BLOOD COUNT 6.6 X10'3 (4.5-11.0)
[2020-05-08 06:00] VITALS: BP 158/89
[2020-05-08 06:02] LABS: ALANINE AMINOTRANSFERASE 18 U/L (12-78); ALBUMIN 2.4 G/DL (3.4-5.0); ALBUMIN/GLOBULIN RATIO 0.7 (1.1-1.5); ALKALINE PHOSPHATASE 41 IU/L (46-116); ANION GAP 10 (8-16); ASPARTATE AMINO TRANSFERASE 19 U/L (10-37); BILIRUBIN,TOTAL 0.2 MG/DL (0.1-1.0); BLOOD UREA NITROGEN 37 MG/DL (7-18); BUN/CREATININE RATIO 16.8 (5.4-32.0); CALCIUM 7.6 MG/DL (8.5-10.1); CHLORIDE 108 MMOL/L (99-107); GLUCOSE 123 MG/DL (70-104); MAGNESIUM 1.5 MG/DL (1.5-2.4); PHOSPHORUS 3.2 MG/DL (2.3-4.5); POTASSIUM 3.9 MMOL/L (3.5-5.1); SODIUM 140 MMOL/L (135-145); TOTAL CARBON DIOXIDE 22.3 MMOL/L (24-32); TOTAL PROTEIN 5.8 G/DL (6.4-8.2); eGFR 30 ML/MIN
--- NOTE | 2020-05-08 06:14 | NUR ---
Problems reprioritized. Patient report given, questions answered & plan of care reviewed with Varsha MCCONNELL.
--- NOTE | 2020-05-08 06:17 | NUR ---
Patient in room PCU 3013. I have received report from ENEDINA Brooke and had the opportunity to ask questions and assume patient care.
[2020-05-08] MEDS: amLODIPine 5mg tablet PO SCH (07:58)
[2020-05-08] MEDS: pantoprazole 40mg Tablet.DR PO SCH (07:59)
[2020-05-08] MEDS: tamsulosin 0.4mg capsule PO SCH (07:59)
[2020-05-08] MEDS: metoprolol tartrate 25mg tablet PO SCH (07:59)
[2020-05-08] MEDS: dutasteride 0.5 MG capsule PO SCH (08:00)
[2020-05-08] MEDS: heparin, porcine 5000 units/ml vial SQ SCH (08:00)
[2020-05-08] MEDS: K and/or MAG REPLACEMENT MC SCH (08:00)
[2020-05-08] MEDS: phenazopyridine 100mg tablet PO SCH ×3 (08:00→17:15)
[2020-05-08] MEDS: CefTRIAXone/D5W-Rocephin 1gm 50 ML IV SCH (08:01)
--- NOTE | 2020-05-08 14:54 | NUR ---
Alex catheter removed with 8.5 ml of air removed from balloon. catheter tip in tact. 1315ml of urine emptied from alex bladder. Dr. Keita will be notified when patient urinates.
--- NOTE | 2020-05-08 14:57 | NUR ---
notified. PAGER ID: [phone] MESSAGE: Re: Everette Whitten. [id number]. Sea removed at 7802. Will update you once he urinates. Vale Gomes, #[phone]
[2020-05-08 15:00] VITALS: BP 140/81
--- NOTE | 2020-05-08 16:14 | NUR ---
notified. PAGER ID: [phone] MESSAGE: Re: Everette Whitten. 3013a. Pt. voided 250ml of urine, post alex catheter DC. Maddox N #[phone]
[2020-05-08] MEDS ORDERED: LACT1CAP26 PO (16:24)
[2020-05-08] MEDS ORDERED: PHEN-786 PO (16:24)
[2020-05-08] MEDS ORDERED: CEFD300C3 PO (16:24)
[2020-05-08] MEDS: HYDROcodone/acetaminophen 5mg/325mg tablet PO PRN (17:14)
--- NOTE | 2020-05-08 17:30 | NUR ---
Stable for discharge per MD orders. All discharge instructions reviewed with patient and all questions answered; with strict return precautions. [facility] [address]. PIV was discontinued with cannula intact. monitor technician discontinued. Patient was clothed. CHRISTOPH Machado wheeled the patient down in a wheelchair to the ambulance bay where his belongings were in a red bag, alongside his electric wheelchair. The patient then was transferred into his electric wheelchair by his request and the patient was then seen leaving the premises. All armbands were cut at the time of discharge.
[2020-05-08] MEDS ORDERED: lactobacillus rhamnosus 10,000 MMU CELLS/CAPSULE PO SCH (20:00)
[2020-05-11] MEDS ORDERED: VANCOMYCIN LEVEL IV ONE (03:30)
== END 2020-05-08 17:30 | disposition home or self-care (01) | DRG 720 ==
LOC: ER 15:03 → ED HOLD 18:18 → PCU 3S 05-06 01:45
PROVIDERS: ADMIT Family Medicine; ATTEND Family Medicine
DX: A41.9 Sepsis, unspecified organism (principal); N39.0 Urinary tract infection, site not specified; Z87.440 Personal history of urinary (tract) infections; N40.0 Benign prostatic hyperplasia without lower urinary tract symptoms; Z79.899 Other long term (current) drug therapy; Z99.3 Dependence on wheelchair; Z91.19 Patient's noncompliance with other medical treatment and regimen; Z59.0 Homelessness; Z66 Do not resuscitate; N17.0 Acute kidney failure with tubular necrosis; E86.0 Dehydration; E87.2 Acidosis; N18.3 Chronic kidney disease, stage 3 (moderate); I69.354 Hemiplegia and hemiparesis following cerebral infarction affecting left non-dominant side; D64.9 Anemia, unspecified; I12.9 Hypertensive chronic kidney disease with stage 1 through stage 4 chronic kidney disease, or unspecified chronic kidney disease; N13.9 Obstructive and reflux uropathy, unspecified; R31.9 Hematuria, unspecified; F17.210 Nicotine dependence, cigarettes, uncomplicated; F12.90 Cannabis use, unspecified, uncomplicated; Z88.8 Allergy status to other drugs, medicaments and biological substances
CPT/HCPCS: 36415; 71045; 76775; 80053; 80061; 80305; 81001; 82570; 82948; 83036; 83605; 83735; 84100; 84145; 84156; 84300; 85025; 87040; 87077; 87081; 87088; 87186; 87207; 93308; 96365; 96375; 97110; 97162; 97530; 99285; C9113; G0378; J0696; J1644; J1815; J2060; J2270; J3370; J7030

== ENCOUNTER 2020-05-17 04:02 | Emergency (ER) | payer MEDICAID ==
[~2020-05-17] VITALS: Ht 177.8 cm; Wt 95.5 kg
[~2020-05-17 04:02] MED LIST changes: +AMLO-314 PO; -AVO0.5C PO; +CEFD300C3 PO; +DUTA0.5C40 PO; +FURO-150 PO; -FURO20TA4 PO; +LACT1CAP26 PO; -NOR5T PO; +PHEN-786 PO
[2020-05-17 04:35] LABS: CLARITY,URINE SLIGHTLY CLOUDY (Clear); COLOR,URINE YELLOW (Yellow); GLUCOSE, URINE NEGATIVE (Neg); KETONES,URINE NEGATIVE (Neg); LEUKOCYTE ESTERASE ,URINE SMALL (Neg); NITRITES, URINE NEGATIVE (Neg); OCCULT BLOOD,URINE LARGE (Neg); PROTEIN,URINE >=300 mg/dl (Neg); UROBILINOGEN,URINE 0.2 E.U/dL (0.2-1.0)
[2020-05-17 04:37] LABS: BASOPHILS % (AUTO) 0.4 % (0-1); EOSINOPHILS # (AUTO) 0.2 X10'3 (0-0.9); EOSINOPHILS % (AUTO) 2.1 % (0-6); HEMATOCRIT 30.9 % (42.0-52.0); HEMOGLOBIN 10.1 g/dl (14.0-17.9); LYMPHOCYTES % (AUTO) 9.4 % (21-51); MEAN CORPUSCULAR HEMOGLOBIN 28.2 PG (27.0-31.0); MEAN CORPUSCULAR HGB CONC 32.6 g/dL (33.0-36.5); MEAN CORPUSCULAR VOLUME 86.5 FL (78-98); MEAN PLATELET VOLUME 7.8 FL (7.4-10.4); MONOCYTES # (AUTO) 1.1 X10'3 (0-0.9); MONOCYTES % (AUTO) 11.1 % (2-12); NEUTROPHILS # (AUTO) 7.9 X10'3 (1.8-7.7); PLATELET COUNT 256 X10'3 (140-440); RED BLOOD COUNT 3.57 X10'6 (4.70-6.10); RED CELL DISTRIBUTION WIDTH 18.1 % (11.5-14.5); WHITE BLOOD COUNT 10.2 X10'3 (4.5-11.0)
[2020-05-17 04:46] LABS: UA COLLECTION TYPE STRAIGHT CATH; WBC,URINE 20-30 /HPF (0-4)
[2020-05-17 04:47] LABS: BACTERIA,URINE FEW /HPF (Neg); RBC,URINE 0-2 /HPF (0-2); SQUAMOUS EPITHELIAL CELL,UR FEW /LPF (FEW)
[2020-05-17 04:59] LABS: ALANINE AMINOTRANSFERASE 19 U/L (12-78); ALBUMIN/GLOBULIN RATIO 0.8 (1.1-1.5); ALKALINE PHOSPHATASE 55 IU/L (46-116); ANION GAP 9 (8-16); ASPARTATE AMINO TRANSFERASE 19 U/L (10-37); BILIRUBIN,TOTAL 0.6 MG/DL (0.1-1.0); BLOOD UREA NITROGEN 37 MG/DL (7-18); BUN/CREATININE RATIO 12.8 (5.4-32.0); CALCIUM 8.4 MG/DL (8.5-10.1); CHLORIDE 104 MMOL/L (99-107); CREATININE 2.88 MG/DL (0.60-1.10); GLUCOSE 108 MG/DL (70-104); POTASSIUM 3.7 MMOL/L (3.5-5.1); SODIUM 136 MMOL/L (135-145); TOTAL CARBON DIOXIDE 22.7 MMOL/L (24-32); TOTAL PROTEIN 6.6 G/DL (6.4-8.2); eGFR 22 ML/MIN
[2020-05-17 05:02] LABS: TROPONIN I < 0.04 NG/ML (0.0-0.05)
[2020-05-17] MEDS ORDERED: CefTRIAXone 2gm/D5W 50ml 50 ML IV ONE (05:05)
[2020-05-17] MEDS ORDERED: CefTRIAXone inj 2,000 MG in normal saline 100ml IV soln 100 ML IV ONE (05:05)
[2020-05-17] MEDS ORDERED: normal saline 1000ml 1,000 ML IV ONE (05:05)
[2020-05-17] MEDS ORDERED: FLO0.4C PO (05:18)
[2020-05-17] MEDS ORDERED: CEPH500C5 PO (05:18)
[2020-05-17] MEDS ORDERED: METO25TA6 PO (05:18)
[2020-05-17] MEDS ORDERED: AMLO-314 PO (05:18)
[2020-05-17] MEDS ORDERED: FURO-150 PO (05:18)
[2020-05-17] MEDS ORDERED: DUTA0.5C40 PO (05:18)
--- NOTE | 2020-05-17 05:30 | NUR ---
Spoke with MD regarding ordered NS bolus. N.O received to administer 500cc only.
[2020-05-17 06:11] VITALS: BP 150/99
--- NOTE | 2020-05-17 08:30 | NUR ---
Checked on [employer] transportation. Does not appear as though there is a driver license technician. Taxi called for transport to [facility] where pt's WC is located. Not ambulatory rendering bus non-option.
[2020-05-18] MEDS ORDERED: CEPH250T PO (19:00)
== END 2020-05-17 09:40 | disposition home or self-care (01) ==
LOC: ER 04:03
DX: N39.0 Urinary tract infection, site not specified (principal); I12.9 Hypertensive chronic kidney disease with stage 1 through stage 4 chronic kidney disease, or unspecified chronic kidney disease; N18.9 Chronic kidney disease, unspecified; G89.29 Other chronic pain; R60.0 Localized edema; F17.210 Nicotine dependence, cigarettes, uncomplicated; M10.9 Gout, unspecified; F12.90 Cannabis use, unspecified, uncomplicated; Z98.890 Other specified postprocedural states; Z59.0 Homelessness; Z56.0 Unemployment, unspecified; Z72.89 Other problems related to lifestyle; Z88.8 Allergy status to other drugs, medicaments and biological substances; Z91.030 Bee allergy status; Z79.899 Other long term (current) drug therapy
CPT/HCPCS: 36415; 71045; 80053; 81001; 84484; 85025; 87088; 96374; 99284; J0696; J7030

== ENCOUNTER 2020-05-18 14:30 | Emergency (ER) | payer MEDICAID ==
[~2020-05-18] VITALS: Ht 177.8 cm; Wt 98.8 kg
[~2020-05-18 14:30] MED LIST changes: +CEPH500C5 PO
[2020-05-18 15:29] LABS: BASOPHILS # (AUTO) 0.1 X10'3 (0-0.2); BASOPHILS % (AUTO) 0.8 % (0-1); EOSINOPHILS # (AUTO) 0.3 X10'3 (0-0.9); EOSINOPHILS % (AUTO) 3.6 % (0-6); HEMATOCRIT 31.3 % (42.0-52.0); HEMOGLOBIN 10.2 g/dl (14.0-17.9); LYMPHOCYTES # (AUTO) 0.9 X10'3 (1.1-4.8); LYMPHOCYTES % (AUTO) 12.2 % (21-51); MEAN CORPUSCULAR HEMOGLOBIN 28.2 PG (27.0-31.0); MEAN CORPUSCULAR HGB CONC 32.5 g/dL (33.0-36.5); MEAN CORPUSCULAR VOLUME 86.8 FL (78-98); MEAN PLATELET VOLUME 8.3 FL (7.4-10.4); MONOCYTES % (AUTO) 12.6 % (2-12); NEUTROPHILS # (AUTO) 5.4 X10'3 (1.8-7.7); NEUTROPHILS % (AUTO) 70.8 % (42-75); PLATELET COUNT 254 X10'3 (140-440); RED CELL DISTRIBUTION WIDTH 18.1 % (11.5-14.5); WHITE BLOOD COUNT 7.6 X10'3 (4.5-11.0)
[2020-05-18 15:44] LABS: ALANINE AMINOTRANSFERASE 21 U/L (12-78); ALBUMIN 2.8 G/DL (3.4-5.0); ALBUMIN/GLOBULIN RATIO 0.7 (1.1-1.5); ALKALINE PHOSPHATASE 55 IU/L (46-116); ANION GAP 8 (8-16); ASPARTATE AMINO TRANSFERASE 18 U/L (10-37); BILIRUBIN,TOTAL 0.3 MG/DL (0.1-1.0); BLOOD UREA NITROGEN 37 MG/DL (7-18); BUN/CREATININE RATIO 14.6 (5.4-32.0); CALCIUM 8.4 MG/DL (8.5-10.1); CHLORIDE 105 MMOL/L (99-107); CREATININE 2.54 MG/DL (0.60-1.10); GLUCOSE 100 MG/DL (70-104); POTASSIUM 4.1 MMOL/L (3.5-5.1); SODIUM 141 MMOL/L (135-145); TOTAL PROTEIN 6.7 G/DL (6.4-8.2); eGFR 26 ML/MIN
[2020-05-18 18:35] LABS: COLOR,URINE YELLOW (Yellow); GLUCOSE, URINE NEGATIVE (Neg); KETONES,URINE NEGATIVE (Neg); LEUKOCYTE ESTERASE ,URINE TRACE (Neg); NITRITES, URINE NEGATIVE (Neg); OCCULT BLOOD,URINE LARGE (Neg); PH,URINE 5.5 (4.8-8.0); PROTEIN,URINE 100 mg/dl (Neg); UROBILINOGEN,URINE 0.2 E.U/dL (0.2-1.0)
[2020-05-18 18:39] LABS: URINE AMPHETAMINE SCREEN POSITIVE (Neg); URINE BARBITUATE SCREEN NEGATIVE (Neg); URINE BENZODIAZEPINES SCREEN NEGATIVE (Neg); URINE CANNABINOID SCREEN POSITIVE (Neg); URINE COCAINE SCREEN NEGATIVE (Neg); URINE METHADONE SCREEN NEGATIVE (Neg); URINE OPIATE SCREEN NEGATIVE (Neg); URINE PHENCYCLIDINE SCREEN NEGATIVE (Neg)
[2020-05-18 18:40] LABS: CLARITY,URINE SLIGHTLY CLOUDY (Clear); UA COLLECTION TYPE CLN CATCH MIDSTREAM
[2020-05-18 18:41] LABS: WBC,URINE 50-100 /HPF (0-4)
[2020-05-18 18:42] LABS: BACTERIA,URINE FEW /HPF (Neg); RBC,URINE TNTC /HPF (0-2); SQUAMOUS EPITHELIAL CELL,UR MODERATE /LPF (FEW)
--- NOTE | 2020-05-18 18:48 | NUR ---
PT REFUSED GAIT TEST AND STATES "I USE A WHEELCHAIR-I DONT WALK."
[2020-05-18] MEDS ORDERED: CEPH250T PO (19:00)
[2020-05-18] MEDS ORDERED: cephalexin 250mg capsule PO ONE (19:10)
[2020-05-19 03:28] VITALS: BP 168/101
== END 2020-05-18 19:50 | disposition home or self-care (01) ==
LOC: ER 14:30
DX: N39.0 Urinary tract infection, site not specified (principal); R06.02 Shortness of breath; I10 Essential (primary) hypertension; G89.29 Other chronic pain; M10.9 Gout, unspecified; F12.90 Cannabis use, unspecified, uncomplicated; F15.90 Other stimulant use, unspecified, uncomplicated; Z86.73 Personal history of transient ischemic attack (TIA), and cerebral infarction without residual deficits; Z87.440 Personal history of urinary (tract) infections; Z98.890 Other specified postprocedural states; Z72.89 Other problems related to lifestyle; Z56.0 Unemployment, unspecified; Z59.0 Homelessness; Z91.030 Bee allergy status; Z88.8 Allergy status to other drugs, medicaments and biological substances; Z79.2 Long term (current) use of antibiotics; Z79.899 Other long term (current) drug therapy
CPT/HCPCS: 36415; 71045; 80053; 80305; 81001; 83605; 83880; 84145; 84484; 85025; 87088; 93005; 99285

== ENCOUNTER 2020-09-10 22:05 | Emergency (ER) | payer MEDICAID ==
[~2020-09-10] VITALS: Ht 177.8 cm; Wt 110.0 kg
[~2020-09-10 22:05] MED LIST changes: -CEFD300C3 PO; +CEPH250T PO
[2020-09-10] MEDS ORDERED: ondansetron/PF 4mg/2ml inj IV ONE (22:30)
[2020-09-10 23:11] LABS: MEAN CORPUSCULAR HEMOGLOBIN 30.7 PG (27.0-31.0); MEAN CORPUSCULAR HGB CONC 33.8 g/dL (33.0-36.5)
[2020-09-10 23:12] LABS: BASOPHILS # (AUTO) 0.1 X10'3 (0-0.2); BASOPHILS % (AUTO) 1.4 % (0-1); EOSINOPHILS # (AUTO) 0.2 X10'3 (0-0.9); EOSINOPHILS % (AUTO) 4.3 % (0-6); HEMATOCRIT 45.2 % (42.0-52.0); HEMOGLOBIN 15.3 g/dl (14.0-17.9); LYMPHOCYTES # (AUTO) 1.5 X10'3 (1.1-4.8); LYMPHOCYTES % (AUTO) 26.5 % (21-51); MONOCYTES # (AUTO) 0.7 X10'3 (0-0.9); MONOCYTES % (AUTO) 12.8 % (2-12); PLATELET COUNT 240 X10'3 (140-440); RED BLOOD COUNT 4.97 X10'6 (4.70-6.10); RED CELL DISTRIBUTION WIDTH 17.6 % (11.5-14.5); WHITE BLOOD COUNT 5.5 X10'3 (4.5-11.0)
[2020-09-10 23:28] LABS: ALANINE AMINOTRANSFERASE 26 U/L (12-78); ALBUMIN 3.3 G/DL (3.4-5.0); ALBUMIN/GLOBULIN RATIO 0.9 (1.1-1.5); ALKALINE PHOSPHATASE 101 IU/L (46-116); ANION GAP 8 (8-16); ASPARTATE AMINO TRANSFERASE 28 U/L (10-37); BILIRUBIN,TOTAL 0.2 MG/DL (0.1-1.0); BLOOD UREA NITROGEN 27 MG/DL (7-18); BUN/CREATININE RATIO 14.7 (5.4-32.0); CALCIUM 8.9 MG/DL (8.5-10.1); CHLORIDE 103 MMOL/L (99-107); CREATININE 1.84 MG/DL (0.60-1.10); GLUCOSE 105 MG/DL (70-104); PARTIAL THROMBOPLASTIN TIME 28 SECONDS (22-32); POTASSIUM 3.9 MMOL/L (3.5-5.1); SODIUM 139 MMOL/L (135-145); TOTAL CARBON DIOXIDE 27.7 MMOL/L (24-32); TOTAL PROTEIN 7.1 G/DL (6.4-8.2); eGFR 37 ML/MIN
[2020-09-10 23:37] LABS: ETHANOL 0.218 GM/DL (0.0-0.010)
[2020-09-10] MEDS ORDERED: metoclopramide 5 mg/ml inj IV ONE (23:55)
[2020-09-11] MEDS ORDERED: ONDA4TAB6 PO (01:00)
[2020-09-11] MEDS ORDERED: PANT-47 PO (01:00)
--- NOTE | 2020-09-11 04:32 | NUR ---
unable to safely discharge pt due 'unable to stand and transfer from taxi cab to wheelchair' Addendum: 09/11/20 at 0445 by BRIAN charge aware
--- NOTE | 2020-09-11 05:39 | NUR ---
PROVIDED WARM BLANKETS, WATER
[2020-09-11 09:29] VITALS: BP 172/114
== END 2020-09-11 09:31 | disposition home or self-care (01) ==
LOC: ER 22:06
DX: R11.2 Nausea with vomiting, unspecified (principal); F10.129 Alcohol abuse with intoxication, unspecified; R06.02 Shortness of breath; Z20.828 Contact with and (suspected) exposure to other viral communicable diseases; G89.29 Other chronic pain; I10 Essential (primary) hypertension; M10.9 Gout, unspecified; F12.90 Cannabis use, unspecified, uncomplicated; F15.90 Other stimulant use, unspecified, uncomplicated; Z86.73 Personal history of transient ischemic attack (TIA), and cerebral infarction without residual deficits; Z87.440 Personal history of urinary (tract) infections; Z98.890 Other specified postprocedural states; Z72.89 Other problems related to lifestyle; Z56.0 Unemployment, unspecified; Z59.0 Homelessness; Z88.8 Allergy status to other drugs, medicaments and biological substances; Z91.030 Bee allergy status; Z79.2 Long term (current) use of antibiotics; Z79.899 Other long term (current) drug therapy; Y90.0 Blood alcohol level of less than 20 mg/100 ml
CPT/HCPCS: 36415; 70450; 71045; 74176; 80053; 80320; 83880; 85025; 85610; 85730; 87635; 93005; 96374; 96375; 99285; C9803; J2405; J2765

== ENCOUNTER 2020-10-06 23:55 | Emergency (ER) | payer MEDICAID ==
[~2020-10-06] VITALS: Ht 177.8 cm; Wt 100.0 kg
[~2020-10-06 23:55] MED LIST changes: +ONDA4TAB6 PO; +PANT-47 PO
[2020-10-06 23:59] VITALS: BP 166/99
--- NOTE | 2020-10-07 01:24 | NUR ---
pt is wheelchair bound and does not have anyone to help him into is house, he needs [employer] to help him into his house.
== END 2020-10-07 05:30 | disposition home or self-care (01) ==
LOC: ER 23:57
DX: M79.602 Pain in left arm (principal); G89.29 Other chronic pain; I11.0 Hypertensive heart disease with heart failure; F15.10 Other stimulant abuse, uncomplicated; F12.10 Cannabis abuse, uncomplicated; Z56.0 Unemployment, unspecified; Z59.0 Homelessness; Z88.8 Allergy status to other drugs, medicaments and biological substances; Z91.030 Bee allergy status; W05.0XXA Fall from non-moving wheelchair, initial encounter; Y93.89 Activity, other specified; Y92.89 Other specified places as the place of occurrence of the external cause; Y99.8 Other external cause status
CPT/HCPCS: 99284

== ENCOUNTER 2020-12-11 18:10 | Inpatient (IN) | payer MEDICAID ==
[~2020-12-11] VITALS: Ht 177.8 cm; Wt 92.0 kg
[~2020-12-11 18:10] MED LIST changes: +CEPH-585 PO; -CEPH500C5 PO
[2020-12-11] MEDS ORDERED: ipratropium/albuterol 3ml nebule NEB ONE (19:15)
[2020-12-11 19:37] LABS: ALANINE AMINOTRANSFERASE 45 U/L (12-78); ALBUMIN 2.9 G/DL (3.4-5.0); ALBUMIN/GLOBULIN RATIO 0.6 (1.1-1.5); ALKALINE PHOSPHATASE 81 IU/L (46-116); ANION GAP 13 (8-16); ASPARTATE AMINO TRANSFERASE 35 U/L (10-37); BILIRUBIN,TOTAL 0.9 MG/DL (0.1-1.0); BLOOD UREA NITROGEN 29 MG/DL (7-18); BUN/CREATININE RATIO 8.8 (5.4-32.0); CALCIUM 9.2 MG/DL (8.5-10.1); CHLORIDE 96 MMOL/L (99-107); CREATININE 3.28 MG/DL (0.60-1.10); GLUCOSE 99 MG/DL (70-104); POTASSIUM 4.3 MMOL/L (3.5-5.1); SODIUM 133 MMOL/L (135-145); TOTAL CARBON DIOXIDE 24.1 MMOL/L (24-32); TOTAL PROTEIN 7.5 G/DL (6.4-8.2); eGFR 19 ML/MIN
[2020-12-11 19:38] LABS: BASOPHILS % (AUTO) 0.2 % (0-1); EOSINOPHILS % (AUTO) 0 % (0-6); HEMATOCRIT 46.2 % (42.0-52.0); HEMOGLOBIN 15.7 g/dl (14.0-17.9); LYMPHOCYTES # (AUTO) 0.8 X10'3 (1.1-4.8); LYMPHOCYTES % (AUTO) 6.8 % (21-51); MEAN CORPUSCULAR HEMOGLOBIN 30.9 PG (27.0-31.0); MEAN CORPUSCULAR HGB CONC 33.9 g/dL (33.0-36.5); MEAN CORPUSCULAR VOLUME 91.3 FL (78-98); MEAN PLATELET VOLUME 8.1 FL (7.4-10.4); MONOCYTES # (AUTO) 1.3 X10'3 (0-0.9); MONOCYTES % (AUTO) 11.4 % (2-12); NEUTROPHILS # (AUTO) 9.6 X10'3 (1.8-7.7); NEUTROPHILS % (AUTO) 81.6 % (42-75); PLATELET COUNT 233 X10'3 (140-440); RED BLOOD COUNT 5.06 X10'6 (4.70-6.10); RED CELL DISTRIBUTION WIDTH 15.6 % (11.5-14.5); WHITE BLOOD COUNT 11.7 X10'3 (4.5-11.0)
[2020-12-11] MEDS ORDERED: normal saline 1000ML IV soln IVB ONE ×2 (20:15→22:50)
[2020-12-11 22:28] LABS: CLARITY,URINE CLOUDY (Clear); COLOR,URINE YELLOW (Yellow); GLUCOSE, URINE NEGATIVE (Neg); KETONES,URINE NEGATIVE (Neg); LEUKOCYTE ESTERASE ,URINE MODERATE (Neg); NITRITES, URINE NEGATIVE (Neg); OCCULT BLOOD,URINE MODERATE (Neg); PROTEIN,URINE 100 mg/dl (Neg); UROBILINOGEN,URINE 0.2 E.U/dL (0.2-1.0)
[2020-12-11 22:33] LABS: UA COLLECTION TYPE STRAIGHT CATH
[2020-12-11 22:37] LABS: BACTERIA,URINE 3+ /HPF (Neg); MUCUS STRANDS NONE SEEN /LPF (Neg); SQUAMOUS EPITHELIAL CELL,UR FEW /LPF (FEW); WBC,URINE TNTC /HPF (0-4)
[2020-12-11] MEDS ORDERED: CefTRIAXone/D5W-Rocephin 1gm 50 ML IV ONE (22:50)
--- NOTE | 2020-12-11 23:43 | NUR ---
pt swallow eval per MD request. Pt had no difficulty swallowing 3 oz water sitting at 90 degrees.
[2020-12-11] MEDS ORDERED: acetaminophen 325mg tablet PO PRN (23:45)
[2020-12-11] MEDS ORDERED: mag hydrox/Alum hydrox/simeth 30ml oral suspension PO PRN (23:45)
[2020-12-11] MEDS ORDERED: ondansetron/PF 4mg/2ml inj IV PRN (23:45)
[2020-12-11] MEDS ORDERED: potassium Cl 20 mEq SR tablet PO PRN ×2 (23:45)
[2020-12-11] MEDS ORDERED: magnesium hydroxide 30ml (MOM) UD suspension PO PRN (23:45)
[2020-12-11] MEDS ORDERED: potassium Cl 40MEQ/1/2NS 520ml 520 ML IV PRN ×2 (23:45)
[2020-12-11] MEDS: normal saline 1000ml 1,000 ML IV SCH (23:56)
--- NOTE | 2020-12-11 23:57 | NUR ---
patient denies any hyome medications states he tarango snot kepp up wit them and does not recall the names of medications
[2020-12-12] MEDS: HYDROcodone/acetaminophen 5mg/325mg tablet PO PRN ×2 (00:16→05:04)
[2020-12-12 01:45] VITALS: BP 123/72
--- NOTE | 2020-12-12 02:02 | NUR ---
Patient in room CLIFF 351. I have received report from OLI MCCONNELL and had the opportunity to ask questions and assume patient care. Patient arrived on the unit and he is in pain. Trying to void and he cannot void on his own.
[2020-12-12] MEDS ORDERED: LIDOcaine 2% 10ml TOPICAL JELLY (Urojet) TP ONE (03:10)
--- NOTE | 2020-12-12 03:21 | NUR ---
PATIENT VERY PAINFUL AND UNABLE TO VOID. BLADDER SCAN SHOWS >700ML. FC PLACEMENT ORDERED AND WILL INSERT IT.
[2020-12-12 06:16] LABS: BASOPHILS % (AUTO) 0.3 % (0-1); EOSINOPHILS % (AUTO) 0.5 % (0-6); HEMOGLOBIN 13.9 g/dl (14.0-17.9); LYMPHOCYTES # (AUTO) 0.9 X10'3 (1.1-4.8); LYMPHOCYTES % (AUTO) 10.5 % (21-51); MEAN CORPUSCULAR HEMOGLOBIN 31.5 PG (27.0-31.0); MEAN CORPUSCULAR HGB CONC 34.6 g/dL (33.0-36.5); MEAN CORPUSCULAR VOLUME 91.1 FL (78-98); MEAN PLATELET VOLUME 8.3 FL (7.4-10.4); MONOCYTES # (AUTO) 1.4 X10'3 (0-0.9); MONOCYTES % (AUTO) 16.4 % (2-12); NEUTROPHILS # (AUTO) 6.1 X10'3 (1.8-7.7); NEUTROPHILS % (AUTO) 72.3 % (42-75); PLATELET COUNT 189 X10'3 (140-440); RED CELL DISTRIBUTION WIDTH 15.3 % (11.5-14.5); WHITE BLOOD COUNT 8.5 X10'3 (4.5-11.0)
[2020-12-12 06:36] LABS: ALANINE AMINOTRANSFERASE 34 U/L (12-78); ALBUMIN 2.3 G/DL (3.4-5.0); ALBUMIN/GLOBULIN RATIO 0.6 (1.1-1.5); ALKALINE PHOSPHATASE 63 IU/L (46-116); ANION GAP 9 (8-16); ASPARTATE AMINO TRANSFERASE 25 U/L (10-37); BILIRUBIN,TOTAL 0.5 MG/DL (0.1-1.0); CALCIUM 8.5 MG/DL (8.5-10.1); CHLORIDE 100 MMOL/L (99-107); CREATININE 2.62 MG/DL (0.60-1.10); GLUCOSE 97 MG/DL (70-104); SODIUM 133 MMOL/L (135-145); TOTAL PROTEIN 6.1 G/DL (6.4-8.2); eGFR 25 ML/MIN
--- NOTE | 2020-12-12 06:48 | NUR ---
Patient in room CLIFF 351. I have received report from Violet MCCONNELL and had the opportunity to ask questions and assume patient care.
[2020-12-12 07:32] LABS: ANISOCYTOSIS FEW; PLATELET ESTIMATE NORMAL; TOTAL CELLS COUNTED 100; TOXIC GRANULATION 1+
[2020-12-12 07:35] LABS: BLOOD UREA NITROGEN 33 MG/DL (7-18); BUN/CREATININE RATIO 12.6 (5.4-32.0)
[2020-12-12 08:00] VITALS: BP 139/84
[2020-12-12] MEDS: K and/or MAG REPLACEMENT MC SCH ×2 (08:00→20:00)
[2020-12-12] MEDS: phenazopyridine 100mg tablet PO SCH ×3 (08:07→18:06)
[2020-12-12] MEDS: amLODIPine 5mg tablet PO SCH (08:08)
[2020-12-12] MEDS: metoprolol tartrate 25mg tablet PO SCH ×2 (08:08→20:54)
[2020-12-12] MEDS: heparin, porcine 5000 units/ml vial SQ SCH ×2 (08:10→20:54)
--- NOTE | 2020-12-12 09:00 | NUR ---
Patient requested for all hair to be cut including loya at this time. Patient hair was cut with clippers an patient has about a quarter inch of facial hair and hair on his head.
[2020-12-12] MEDS ORDERED: FLU VACC QS2020-21(6MOS UP)/PF 60 MCG/0.5 ML SYRINGE IMVAC ONE (10:00)
--- NOTE | 2020-12-12 10:10 | NUR ---
PAGER ID: [phone] MESSAGE: Jasvir Surg [phone] Re: 351 Charles Whitten patient is complaining of shortness of breathe and has some audible wheezes did you want to add breathing treatments thanks. Jasvir.
[2020-12-12 10:27] VITALS: BP 113/75
[2020-12-12] MEDS: ipratropium/albuterol 3ml nebule NEB PRN (10:41)
[2020-12-12] MEDS ORDERED: NO HOME MEDS (12:55)
[2020-12-12] MEDS: normal saline 1000ml 1,000 ML IV SCH (13:02)
--- NOTE | 2020-12-12 18:24 | NUR ---
Problems reprioritized. Patient report given, questions answered & plan of care reviewed with Nathalia MCCONNELL.
--- NOTE | 2020-12-12 18:33 | NUR ---
Patient in room CLIFF 351. I have received report from ENEDINA Black and had the opportunity to ask questions and assume patient care.
[2020-12-12 19:30] VITALS: BP 121/81
[2020-12-12] MEDS: lactobacillus rhamnosus 10,000 MMU CELLS/CAPSULE PO SCH (20:54)
[2020-12-12] MEDS: CefTRIAXone/D5W-Rocephin 1gm 50 ML IV SCH (21:21)
[2020-12-12 23:59] VITALS: BP 121/83
[2020-12-13] MEDS: normal saline 1000ml 1,000 ML IV SCH ×2 (02:21→14:38)
[2020-12-13 06:13] LABS: EOSINOPHILS # (AUTO) 0.1 X10'3 (0-0.9); HEMATOCRIT 36.1 % (42.0-52.0); LYMPHOCYTES # (AUTO) 0.7 X10'3 (1.1-4.8); MEAN PLATELET VOLUME 8.4 FL (7.4-10.4); MONOCYTES # (AUTO) 0.9 X10'3 (0-0.9); NEUTROPHILS # (AUTO) 4.2 X10'3 (1.8-7.7); WHITE BLOOD COUNT 5.9 X10'3 (4.5-11.0)
[2020-12-13 06:17] LABS: BASOPHILS % (AUTO) 0.4 % (0-1); EOSINOPHILS % (AUTO) 1.5 % (0-6); HEMOGLOBIN 12.3 g/dl (14.0-17.9); LYMPHOCYTES % (AUTO) 12.3 % (21-51); MEAN CORPUSCULAR HGB CONC 33.9 g/dL (33.0-36.5); MEAN CORPUSCULAR VOLUME 91.4 FL (78-98); MONOCYTES % (AUTO) 15.2 % (2-12); NEUTROPHILS % (AUTO) 70.6 % (42-75); PLATELET COUNT 163 X10'3 (140-440); RED BLOOD COUNT 3.95 X10'6 (4.70-6.10); RED CELL DISTRIBUTION WIDTH 15.1 % (11.5-14.5)
--- NOTE | 2020-12-13 06:20 | NUR ---
Problems reprioritized. Patient report given, questions answered & plan of care reviewed with ENEDINA Black.
[2020-12-13 06:46] LABS: ALANINE AMINOTRANSFERASE 31 U/L (12-78); ALBUMIN 2.2 G/DL (3.4-5.0); ALBUMIN/GLOBULIN RATIO 0.6 (1.1-1.5); ANION GAP 8 (8-16); ASPARTATE AMINO TRANSFERASE 21 U/L (10-37); BILIRUBIN,TOTAL 0.3 MG/DL (0.1-1.0); BLOOD UREA NITROGEN 29 MG/DL (7-18); BUN/CREATININE RATIO 16.5 (5.4-32.0); CALCIUM 8.4 MG/DL (8.5-10.1); CHLORIDE 104 MMOL/L (99-107); CREATININE 1.76 MG/DL (0.60-1.10); GLUCOSE 84 MG/DL (70-104); POTASSIUM 3.9 MMOL/L (3.5-5.1); SODIUM 137 MMOL/L (135-145); TOTAL CARBON DIOXIDE 24.9 MMOL/L (24-32); eGFR 39 ML/MIN
--- NOTE | 2020-12-13 06:56 | NUR ---
Patient in room CL[facility] 351. I have received report from Nathalia MCCONNELL and had the opportunity to ask questions and assume patient care.
[2020-12-13 06:57] LABS: ALKALINE PHOSPHATASE 53 IU/L (46-116)
[2020-12-13] MEDS: lactobacillus rhamnosus 10,000 MMU CELLS/CAPSULE PO SCH ×2 (07:50→21:08)
[2020-12-13] MEDS: metoprolol tartrate 25mg tablet PO SCH ×2 (07:51→21:08)
[2020-12-13] MEDS: amLODIPine 5mg tablet PO SCH (07:51)
[2020-12-13] MEDS: phenazopyridine 100mg tablet PO SCH ×3 (07:51→18:19)
[2020-12-13] MEDS: heparin, porcine 5000 units/ml vial SQ SCH ×2 (07:52→21:11)
[2020-12-13 08:00] VITALS: BP 133/58
[2020-12-13] MEDS: K and/or MAG REPLACEMENT MC SCH ×2 (08:00→20:00)
[2020-12-13 11:00] VITALS: BP 132/70
--- NOTE | 2020-12-13 14:42 | NUR ---
Clamped catheter tubing to initiate bladder training. Will unclamp in 2 hours.
--- NOTE | 2020-12-13 15:08 | NUR ---
Wound care consult was ordered. Upon examination, patients wounds are chronic wounds that are healing well. wounds stable with no signs of infection. Will recommend wound care in interventions and will have nursing contact WOC for any concerns.
[2020-12-13] MEDS: HYDROcodone/acetaminophen 5mg/325mg tablet PO PRN (15:56)
--- NOTE | 2020-12-13 16:45 | NUR ---
Unclamped patient's catheter. It drained approximately 200mL of urine. Clamped catheter at 17:10.
[2020-12-13 17:07] VITALS: BP 154/93
--- NOTE | 2020-12-13 17:29 | NUR ---
Student documentation: I have reviewed and agree with all interventions, assessments performed and documented by Stormy GALLEGOS.
--- NOTE | 2020-12-13 18:18 | NUR ---
Problems reprioritized. Patient report given, questions answered & plan of care reviewed with Nazanin MCCONNELL.
--- NOTE | 2020-12-13 18:22 | NUR ---
I have received report from Jasvir MCCONNELL and had the opportunity to ask questions and assume patient care.
[2020-12-13] MEDS: ipratropium/albuterol 3ml nebule NEB PRN (18:31)
[2020-12-13 20:00] VITALS: BP 143/97
[2020-12-13] MEDS: CefTRIAXone/D5W-Rocephin 1gm 50 ML IV SCH (21:09)
[2020-12-14] VITALS: BP 137/95
[2020-12-14] MEDS: normal saline 1000ml 1,000 ML IV SCH ×2 (01:45→07:46)
--- NOTE | 2020-12-14 06:11 | NUR ---
Problems reprioritized. Patient report given, questions answered & plan of care reviewed with Denisha MCCONNELL.
--- NOTE | 2020-12-14 06:42 | NUR ---
Patient in room [facility] 351. I have received report from Nazanin MCCONNELL and had the opportunity to ask questions and assume patient care.
[2020-12-14] MEDS: K and/or MAG REPLACEMENT MC SCH (07:15)
[2020-12-14] MEDS: amLODIPine 5mg tablet PO SCH (07:36)
[2020-12-14] MEDS: lactobacillus rhamnosus 10,000 MMU CELLS/CAPSULE PO SCH (07:37)
[2020-12-14] MEDS: metoprolol tartrate 25mg tablet PO SCH (07:37)
[2020-12-14] MEDS: phenazopyridine 100mg tablet PO SCH ×2 (07:37→14:07)
[2020-12-14] MEDS: HYDROcodone/acetaminophen 5mg/325mg tablet PO PRN ×2 (07:38→15:30)
[2020-12-14] MEDS: heparin, porcine 5000 units/ml vial SQ SCH (07:39)
[2020-12-14 08:00] VITALS: BP 151/87
[2020-12-14 08:57] LABS: ALANINE AMINOTRANSFERASE 30 U/L (12-78); ALBUMIN 2.4 G/DL (3.4-5.0); ALBUMIN/GLOBULIN RATIO 0.6 (1.1-1.5); ALKALINE PHOSPHATASE 61 IU/L (46-116); ANION GAP 13 (8-16); ASPARTATE AMINO TRANSFERASE 32 U/L (10-37); BILIRUBIN,TOTAL 0.4 MG/DL (0.1-1.0); BLOOD UREA NITROGEN 19 MG/DL (7-18); BUN/CREATININE RATIO 14.8 (5.4-32.0); CALCIUM 8.9 MG/DL (8.5-10.1); CHLORIDE 102 MMOL/L (99-107); CREATININE 1.28 MG/DL (0.60-1.10); GLUCOSE 86 MG/DL (70-104); POTASSIUM 4.5 MMOL/L (3.5-5.1); SODIUM 135 MMOL/L (135-145); TOTAL CARBON DIOXIDE 20.5 MMOL/L (24-32); TOTAL PROTEIN 6.7 G/DL (6.4-8.2); eGFR 57 ML/MIN
[2020-12-14 09:25] LABS: BASOPHILS % (AUTO) 0.6 % (0-1); EOSINOPHILS # (AUTO) 0.1 X10'3 (0-0.9); EOSINOPHILS % (AUTO) 1.9 % (0-6); HEMOGLOBIN 12.6 g/dl (14.0-17.9); LYMPHOCYTES # (AUTO) 0.5 X10'3 (1.1-4.8); LYMPHOCYTES % (AUTO) 12.5 % (21-51); MEAN CORPUSCULAR HEMOGLOBIN 30.6 PG (27.0-31.0); MEAN CORPUSCULAR VOLUME 92.5 FL (78-98); MEAN PLATELET VOLUME 8.5 FL (7.4-10.4); MONOCYTES # (AUTO) 0.5 X10'3 (0-0.9); NEUTROPHILS # (AUTO) 3.2 X10'3 (1.8-7.7); PLATELET COUNT 191 X10'3 (140-440); RED BLOOD COUNT 4.11 X10'6 (4.70-6.10); RED CELL DISTRIBUTION WIDTH 14.9 % (11.5-14.5); WHITE BLOOD COUNT 4.4 X10'3 (4.5-11.0)
[2020-12-14 10:06] LABS: COMPLEMENT C3, SERUM 83 mg/dL (82-167); COMPLEMENT C4, SERUM 29 mg/dL (12-38)
--- NOTE | 2020-12-14 10:08 | NUR ---
Pt with a low Av of 12. Per physical assessment pt with no edema, abrasion to RLL and lower back, and excoriated buttock. Wound care has been consulted, pending assessment at this time. Pt on a heart healthy diet and eating well with documented with average 75% PO intake. Will continue to follow and monitor need for further nutrition intervention. Addendum: 12/14/20 at [address] Amended: Links added.
[2020-12-14] MEDS ORDERED: CIPR-202 PO (11:57)
[2020-12-14] MEDS ORDERED: FLO0.4C PO (13:53)
[2020-12-14] MEDS ORDERED: LIDOcaine 2% 10ml TOPICAL JELLY (Urojet) MM ONE (14:00)
[2020-12-14] MEDS: ipratropium/albuterol 3ml nebule NEB PRN (15:28)
[2020-12-14 16:17] VITALS: BP 122/76
[2020-12-14 17:23] LABS: ANTINUCLEAR ANTIBODIES Negative (Negative)
[2020-12-14] MEDS ORDERED: NOR5T PO (18:05)
[2020-12-14] MEDS ORDERED: metoprolol tartrate tablet PO (18:05)
--- NOTE | 2020-12-14 18:45 | NUR ---
Problems reprioritized. Patient report given, questions answered & plan of care reviewed with Nazanin MCCONNELL.
--- NOTE | 2020-12-14 18:51 | NUR ---
Patient in room [facility] 351. I have received report from Denisha MCCONNELL and had the opportunity to ask questions and assume patient care.
--- NOTE | 2020-12-14 19:56 | NUR ---
[email or web address] came at 1927 to flower picker pt. pts iv was removed by basim RN all discharge instructions were given by day RN because patient was suppose to leave at 1730. I gave the pt a slip to flower picker his money from the safe when he got down to the lobby, which was also explained to [email or web address] employee. Pt left with all his belongings, alex catheter in place as ordered, and slip to pick his money from the safe in the lobby. Pt was taken down to lobby in a wheel chair by a [email or web address] staff member. VSS no signs of distress on discharge
[2020-12-14] MEDS ORDERED: tamsulosin 0.4mg capsule PO SCH (21:00)
--- NOTE | 2020-12-15 14:47 | NUR ---
CASE MANAGEMENT DISCHARGE MANAGEMENT: S/p chart review pt does not have phone number/contact number, unable to contact pt for follow up.
[2020-12-15] MEDS ORDERED: CIPR-259 PO (18:29)
== END 2020-12-14 19:25 | disposition home or self-care (01) | DRG 463 ==
LOC: ER 18:10 → ED HOLD 23:41 → SUR 3N 12-12 01:26
PROVIDERS: ADMIT Internal Medicine; ATTEND Internal Medicine
DX: N39.0 Urinary tract infection, site not specified (principal); N17.9 Acute kidney failure, unspecified; Z23 Encounter for immunization; N40.1 Benign prostatic hyperplasia with lower urinary tract symptoms; N18.9 Chronic kidney disease, unspecified; I69.951 Hemiplegia and hemiparesis following unspecified cerebrovascular disease affecting right dominant side; R33.8 Other retention of urine; B96.1 Klebsiella pneumoniae [K. pneumoniae] as the cause of diseases classified elsewhere; F12.90 Cannabis use, unspecified, uncomplicated; G89.29 Other chronic pain; M10.9 Gout, unspecified; I12.9 Hypertensive chronic kidney disease with stage 1 through stage 4 chronic kidney disease, or unspecified chronic kidney disease; Z66 Do not resuscitate
CPT/HCPCS: 36415; 71045; 80053; 81001; 84484; 85007; 85025; 86038; 86160; 87077; 87081; 87088; 87186; 93005; 94640; 94760; 96365; 99285; G0378; J0696; J1644; J2405; J7030; Q2039

== ENCOUNTER 2020-12-15 15:18 | Emergency (ER) | payer MEDICAID ==
[~2020-12-15] VITALS: Ht 177.8 cm; Wt 145.4 kg
[~2020-12-15 15:18] MED LIST changes: -AMLO-314 PO; -CEPH-585 PO; -CEPH250T PO; +CIPR-202 PO; -DUTA0.5C40 PO; -FURO-150 PO; -LACT1CAP26 PO; -METO25TA6 PO; +NOR5T PO; -ONDA4TAB6 PO; -PANT-47 PO; -PHEN-786 PO; +metoprolol tartrate tablet PO
[2020-12-15] MEDS ORDERED: normal saline 1000ML IV soln IVB ONE (16:05)
[2020-12-15] MEDS ORDERED: ondansetron/PF 4mg/2ml inj IV ONE (16:05)
[2020-12-15] MEDS ORDERED: IOHEXOL 12MG/ML oral solution 500 ML BOTTLE PO ONE (16:05)
[2020-12-15] MEDS ORDERED: morphine 4 MG/ML inj SYRINge IV ONE (16:40)
[2020-12-15 17:15] LABS: BASOPHILS % (AUTO) 0.7 % (0-1); EOSINOPHILS # (AUTO) 0.1 X10'3 (0-0.9); EOSINOPHILS % (AUTO) 2.2 % (0-6); HEMATOCRIT 41.6 % (42.0-52.0); HEMOGLOBIN 13.9 g/dl (14.0-17.9); LYMPHOCYTES # (AUTO) 0.9 X10'3 (1.1-4.8); LYMPHOCYTES % (AUTO) 17.5 % (21-51); MEAN CORPUSCULAR HEMOGLOBIN 30.9 PG (27.0-31.0); MEAN CORPUSCULAR HGB CONC 33.3 g/dL (33.0-36.5); MEAN CORPUSCULAR VOLUME 92.7 FL (78-98); MEAN PLATELET VOLUME 7.9 FL (7.4-10.4); MONOCYTES # (AUTO) 0.9 X10'3 (0-0.9); MONOCYTES % (AUTO) 17.5 % (2-12); NEUTROPHILS % (AUTO) 62.1 % (42-75); PLATELET COUNT 214 X10'3 (140-440); RED BLOOD COUNT 4.49 X10'6 (4.70-6.10); RED CELL DISTRIBUTION WIDTH 14.8 % (11.5-14.5); WHITE BLOOD COUNT 4.9 X10'3 (4.5-11.0)
[2020-12-15 17:16] LABS: ALANINE AMINOTRANSFERASE 31 U/L (12-78); ALBUMIN 2.5 G/DL (3.4-5.0); ALBUMIN/GLOBULIN RATIO 0.6 (1.1-1.5); ALKALINE PHOSPHATASE 65 IU/L (46-116); ANION GAP 8 (8-16); ASPARTATE AMINO TRANSFERASE 21 U/L (10-37); BILIRUBIN,TOTAL 0.3 MG/DL (0.1-1.0); BLOOD UREA NITROGEN 20 MG/DL (7-18); BUN/CREATININE RATIO 13.2 (5.4-32.0); CALCIUM 8.8 MG/DL (8.5-10.1); CHLORIDE 104 MMOL/L (99-107); CREATININE 1.51 MG/DL (0.60-1.10); GLUCOSE 81 MG/DL (70-104); POTASSIUM 3.7 MMOL/L (3.5-5.1); SODIUM 138 MMOL/L (135-145); TOTAL CARBON DIOXIDE 26.4 MMOL/L (24-32); TOTAL PROTEIN 6.8 G/DL (6.4-8.2); eGFR 47 ML/MIN
[2020-12-15 17:18] LABS: TROPONIN I < 0.04 NG/ML (0.0-0.05)
[2020-12-15 17:41] LABS: PLATELET ESTIMATE NORMAL; TOTAL CELLS COUNTED 100
[2020-12-15 17:42] LABS: LARGE PLATELETS FEW; SMUDGE CELLS 1+; TOXIC GRANULATION 2+; TOXIC VACUOLATION 1+
[2020-12-15 17:47] LABS: CLARITY,URINE TURBID (Clear); COLOR,URINE YELLOW (Yellow); GLUCOSE, URINE NEGATIVE (Neg); KETONES,URINE TRACE mg/dl (Neg); LEUKOCYTE ESTERASE ,URINE SMALL (Neg); NITRITES, URINE POSITIVE (Neg); OCCULT BLOOD,URINE MODERATE (Neg); PH,URINE 5.5 (4.8-8.0); PROTEIN,URINE >=300 mg/dl (Neg)
[2020-12-15 18:00] LABS: UA COLLECTION TYPE CLN CATCH MIDSTREAM
[2020-12-15 18:03] LABS: RBC,URINE 0-2 /HPF (0-2)
[2020-12-15 18:04] LABS: BACTERIA,URINE FEW /HPF (Neg); SQUAMOUS EPITHELIAL CELL,UR FEW /LPF (FEW); TRANSITIONAL EPI CELLS,URINE FEW /HPF; WBC CLUMPS,URINE MODERATE /HPF (NEGATIVE)
--- NOTE | 2020-12-15 18:22 | NUR ---
GAIT TEST ORDERED BY VICKI QUEZADA. PT REPORTS BASELINE IS NOT ABLE TO WALK DUE TO PREVIOUS STROKE. VICKI CHRISTIANSON
[2020-12-15] MEDS ORDERED: CIPR-259 PO (18:29)
[2020-12-15] MEDS ORDERED: ciprofloxacin 250mg tablet PO ONE (18:30)
--- NOTE | 2020-12-15 18:32 | NUR ---
PILAR NARVAEZ , TALKING WITH PT ABOUT RESULTS AND THAT HE WILL BE DISCHARGED. PTS TRANSPORTATION BACK TO HIS HOTEL IS INVOLVED BECAUSE PTS ELECTRIC WC IS THERE. BEAUTY COUNSELOR , GABRIELA, UPDATED AND WORKING ON PLAN FOR GETTING HIM SAFELY BACK TO HIS HOTEL.
[2020-12-15 18:34] VITALS: BP 152/104
== END 2020-12-15 19:27 | disposition home or self-care (01) ==
LOC: ER 15:18
DX: N39.0 Urinary tract infection, site not specified (principal); E86.0 Dehydration; R10.84 Generalized abdominal pain; I10 Essential (primary) hypertension; G89.29 Other chronic pain; M10.9 Gout, unspecified; F12.90 Cannabis use, unspecified, uncomplicated; F15.90 Other stimulant use, unspecified, uncomplicated; Z86.73 Personal history of transient ischemic attack (TIA), and cerebral infarction without residual deficits; Z87.440 Personal history of urinary (tract) infections; Z98.890 Other specified postprocedural states; Z72.89 Other problems related to lifestyle; Z59.0 Homelessness; Z56.0 Unemployment, unspecified; Z91.030 Bee allergy status; Z79.2 Long term (current) use of antibiotics; Z79.899 Other long term (current) drug therapy
CPT/HCPCS: 36415; 70450; 71045; 72125; 74176; 80053; 81001; 84484; 85007; 85025; 87088; 93005; 96361; 96374; 96375; 99285; J2270; J2405; J7030

== ENCOUNTER 2020-12-17 16:09 | Emergency (ER) | payer MEDICAID ==
[~2020-12-17] VITALS: Ht 177.8 cm; Wt 100.0 kg
[~2020-12-17 16:09] MED LIST changes: +CIPR-259 PO
[2020-12-17 16:54] LABS: CLARITY,URINE CLEAR (Clear); COLOR,URINE STRAW (Yellow); GLUCOSE, URINE NEGATIVE (Neg); KETONES,URINE NEGATIVE (Neg); LEUKOCYTE ESTERASE ,URINE NEGATIVE (Neg); NITRITES, URINE NEGATIVE (Neg); OCCULT BLOOD,URINE MODERATE (Neg); PH,URINE 5.5 (4.8-8.0); PROTEIN,URINE 30 mg/dl (Neg); UROBILINOGEN,URINE 0.2 E.U/dL (0.2-1.0)
[2020-12-17 16:56] VITALS: BP 148/91
[2020-12-17 17:00] LABS: UA COLLECTION TYPE FOLEY CATH
[2020-12-17 17:01] LABS: BACTERIA,URINE NONE SEEN /HPF (Neg); COARSE GRANULAR CAST 0-3 /LPF (NEGATIVE); MUCUS STRANDS NONE SEEN /LPF (Neg); RBC,URINE 0-2 /HPF (0-2); SQUAMOUS EPITHELIAL CELL,UR NONE SEEN /LPF (FEW); WBC,URINE 0-4 /HPF (0-4)
== END 2020-12-17 18:11 | disposition home or self-care (01) ==
LOC: ER 16:09
DX: T83.091A Other mechanical complication of indwelling urethral catheter, initial encounter (principal); N39.0 Urinary tract infection, site not specified; R10.30 Lower abdominal pain, unspecified; I10 Essential (primary) hypertension; G89.29 Other chronic pain; M10.9 Gout, unspecified; F12.90 Cannabis use, unspecified, uncomplicated; F15.90 Other stimulant use, unspecified, uncomplicated; Z86.73 Personal history of transient ischemic attack (TIA), and cerebral infarction without residual deficits; Z87.440 Personal history of urinary (tract) infections; Z98.890 Other specified postprocedural states; Z72.89 Other problems related to lifestyle; Z59.0 Homelessness; Z56.0 Unemployment, unspecified; Z88.8 Allergy status to other drugs, medicaments and biological substances; Z91.030 Bee allergy status; Z79.2 Long term (current) use of antibiotics; Z79.899 Other long term (current) drug therapy; Y84.6 Urinary catheterization as the cause of abnormal reaction of the patient, or of later complication, without mention of misadventure at the time of the procedure
CPT/HCPCS: 51702; 81001; 99284

== ENCOUNTER 2020-12-19 12:03 | Inpatient (IN) | payer MEDICAID ==
[~2020-12-19] VITALS: Ht 177.8 cm; Wt 98.0 kg
[2020-12-19 13:07] LABS: CLARITY,URINE SLIGHTLY CLOUDY (Clear); COLOR,URINE STRAW (Yellow); GLUCOSE, URINE NEGATIVE (Neg); KETONES,URINE NEGATIVE (Neg); LEUKOCYTE ESTERASE ,URINE SMALL (Neg); NITRITES, URINE NEGATIVE (Neg); OCCULT BLOOD,URINE SMALL (Neg); PH,URINE 5.5 (4.8-8.0); PROTEIN,URINE 30 mg/dl (Neg); UROBILINOGEN,URINE 0.2 E.U/dL (0.2-1.0)
[2020-12-19 13:08] LABS: BASOPHILS # (AUTO) 0.1 X10'3 (0-0.2); EOSINOPHILS # (AUTO) 0.2 X10'3 (0-0.9); EOSINOPHILS % (AUTO) 2.8 % (0-6); HEMATOCRIT 46.5 % (42.0-52.0); HEMOGLOBIN 15.6 g/dl (14.0-17.9); LYMPHOCYTES # (AUTO) 1.9 X10'3 (1.1-4.8); LYMPHOCYTES % (AUTO) 23.4 % (21-51); MEAN CORPUSCULAR HGB CONC 33.7 g/dL (33.0-36.5); MEAN CORPUSCULAR VOLUME 92.1 FL (78-98); MEAN PLATELET VOLUME 7.4 FL (7.4-10.4); MONOCYTES # (AUTO) 0.9 X10'3 (0-0.9); MONOCYTES % (AUTO) 10.8 % (2-12); PLATELET COUNT 259 X10'3 (140-440); RED BLOOD COUNT 5.04 X10'6 (4.70-6.10); WHITE BLOOD COUNT 8.2 X10'3 (4.5-11.0)
[2020-12-19 13:12] LABS: UA COLLECTION TYPE FOLEY CATH
[2020-12-19 13:16] LABS: BACTERIA,URINE FEW /HPF (Neg); MUCUS STRANDS MODERATE /LPF (Neg); RBC,URINE 0-2 /HPF (0-2); SQUAMOUS EPITHELIAL CELL,UR FEW /LPF (FEW)
[2020-12-19 13:17] LABS: COARSE GRANULAR CAST 0-3 /LPF (NEGATIVE); HYALINE CASTS 0-3 /LPF (NEGATIVE); WBC CLUMPS,URINE FEW /HPF (NEGATIVE)
[2020-12-19 13:42] LABS: ALANINE AMINOTRANSFERASE 87 U/L (12-78); ALBUMIN 3.1 G/DL (3.4-5.0); ALBUMIN/GLOBULIN RATIO 0.7 (1.1-1.5); ALKALINE PHOSPHATASE 79 IU/L (46-116); ANION GAP 12 (8-16); ASPARTATE AMINO TRANSFERASE 63 U/L (10-37); BILIRUBIN,TOTAL 0.3 MG/DL (0.1-1.0); BLOOD UREA NITROGEN 22 MG/DL (7-18); BUN/CREATININE RATIO 12.9 (5.4-32.0); CALCIUM 8.5 MG/DL (8.5-10.1); CHLORIDE 101 MMOL/L (99-107); CREATINE KINASE 102 U/L (39-308); ETHANOL 0.255 GM/DL (0.0-0.010); GLUCOSE 90 MG/DL (70-104); POTASSIUM 4.2 MMOL/L (3.5-5.1); SODIUM 137 MMOL/L (135-145); TOTAL CARBON DIOXIDE 23.9 MMOL/L (24-32); TOTAL PROTEIN 7.6 G/DL (6.4-8.2); eGFR 41 ML/MIN
[2020-12-19] MEDS ORDERED: acetaminophen 325mg tablet PO PRN ×2 (15:05)
[2020-12-19] MEDS ORDERED: normal saline 1000ml 1,000 ML IV SCH (15:05)
[2020-12-19] MEDS ORDERED: ondansetron/PF 4mg/2ml inj IV PRN (15:05)
[2020-12-19] MEDS ORDERED: morphine 2 MG/ML inj. syringe IV PRN (15:05)
[2020-12-19] MEDS ORDERED: HYDROcodone/acetaminophen 5mg/325mg tablet PO PRN (15:05)
[2020-12-19] MEDS ORDERED: mag hydrox/Alum hydrox/simeth 30ml oral suspension PO PRN ×2 (15:05→18:45)
--- NOTE | 2020-12-19 15:29 | NUR ---
received report from ENEDINA Ashton. Awaiting patient arrival.
[2020-12-19 16:00] VITALS: BP 175/113
--- NOTE | 2020-12-19 16:07 | NUR ---
Paged Dr. Malcolm PAGER ID: [phone] MESSAGE: Surgical Tru MCCONNELL ext [phone]. Everette Whitten. Patient here now room 352. BP high 165/116 - 175/113, he is very wheezy O2 sat 98% room air. Can we have order for Hydralazine IV and breathing treatment PRN?
--- NOTE | 2020-12-19 16:15 | NUR ---
RT at bedside Addendum: 12/19/20 at 1616 by Jennifer Dai RN Amended: Links added.
[2020-12-19] MEDS: ipratropium/albuterol 3ml nebule NEB PRN ×2 (16:35→21:06)
[2020-12-19] MEDS ORDERED: ipratropium/albuterol 3ml nebule ONE (16:35)
[2020-12-19] MEDS: HYDROcodone/acetaminophen 10/325mg tab PO PRN ×2 (17:24→21:39)
[2020-12-19 17:25] VITALS: BP 185/107
[2020-12-19] MEDS: hydrALAZINE 20mg/ml inj. IV PRN (17:25)
--- NOTE | 2020-12-19 17:41 | NUR ---
PAGER ID: [phone] MESSAGE: Charles Whitten: patient has been a DNR on all previous admissions. he said he does not want to be a full code. thanks! domingo [phone]
--- NOTE | 2020-12-19 18:19 | NUR ---
PAGER ID: [phone] MESSAGE: Charles Whitten: please address med reconciliation & code status. thank you! [phone]
[2020-12-19 18:40] VITALS: BP 146/80
[2020-12-19] MEDS ORDERED: LORazepam 1 MG tablet PO PRN (18:45)
[2020-12-19] MEDS ORDERED: haloperidol lactate 5mg/ml inj IM PRN (18:45)
[2020-12-19] MEDS ORDERED: haloperidol 5mg tablet PO PRN (18:45)
[2020-12-19] MEDS ORDERED: LORazepam 2 mg/ml vial IV PRN (18:45)
[2020-12-19] MEDS ORDERED: thiamine inj. 100 MG in normal saline 100ml IV soln 100 ML IV ONE (18:45)
[2020-12-19] MEDS ORDERED: loperamide 2mg capsule PO PRN (18:45)
[2020-12-19] MEDS ORDERED: dicyclomine 10 MG capsule PO PRN (18:45)
[2020-12-19] MEDS ORDERED: loperamide 2mg capsule PO ONE (18:45)
[2020-12-19] MEDS ORDERED: CIPROFLOXACIN HCL PO SCH (20:00)
[2020-12-19] MEDS: ciprofloxacin 250mg tablet PO SCH (20:08)
[2020-12-19] MEDS: metoprolol tartrate 25mg tablet PO SCH (21:38)
[2020-12-19] MEDS ORDERED: METO50TA16 PO (21:42)
[2020-12-20] VITALS: BP 154/94
[2020-12-20] MEDS: ipratropium/albuterol 3ml nebule NEB PRN (05:34)
[2020-12-20 06:14] LABS: BASOPHILS # (AUTO) 0.1 X10'3 (0-0.2); BASOPHILS % (AUTO) 0.9 % (0-1); EOSINOPHILS # (AUTO) 0.2 X10'3 (0-0.9); EOSINOPHILS % (AUTO) 2.3 % (0-6); HEMATOCRIT 39.7 % (42.0-52.0); HEMOGLOBIN 13.3 g/dl (14.0-17.9); LYMPHOCYTES # (AUTO) 0.9 X10'3 (1.1-4.8); MEAN CORPUSCULAR HEMOGLOBIN 30.5 PG (27.0-31.0); MEAN CORPUSCULAR HGB CONC 33.4 g/dL (33.0-36.5); MEAN CORPUSCULAR VOLUME 91.2 FL (78-98); MEAN PLATELET VOLUME 7.8 FL (7.4-10.4); MONOCYTES # (AUTO) 0.7 X10'3 (0-0.9); MONOCYTES % (AUTO) 10.3 % (2-12); NEUTROPHILS # (AUTO) 5.1 X10'3 (1.8-7.7); NEUTROPHILS % (AUTO) 73.5 % (42-75); PLATELET COUNT 276 X10'3 (140-440); RED BLOOD COUNT 4.35 X10'6 (4.70-6.10); RED CELL DISTRIBUTION WIDTH 15.3 % (11.5-14.5); WHITE BLOOD COUNT 6.9 X10'3 (4.5-11.0)
--- NOTE | 2020-12-20 06:21 | NUR ---
Problems reprioritized. Patient report given, questions answered & plan of care reviewed with STEPHEN. Addendum: 12/20/20 at 0622 by Jeremy Gould RN Amended: Links added.
[2020-12-20 06:36] LABS: ALANINE AMINOTRANSFERASE 68 U/L (12-78); ALBUMIN 2.7 G/DL (3.4-5.0); ALBUMIN/GLOBULIN RATIO 0.7 (1.1-1.5); ALKALINE PHOSPHATASE 74 IU/L (46-116); ANION GAP 7 (8-16); ASPARTATE AMINO TRANSFERASE 50 U/L (10-37); BILIRUBIN,TOTAL 0.5 MG/DL (0.1-1.0); BLOOD UREA NITROGEN 22 MG/DL (7-18); BUN/CREATININE RATIO 15.1 (5.4-32.0); CALCIUM 8.6 MG/DL (8.5-10.1); CHLORIDE 103 MMOL/L (99-107); CREATININE 1.46 MG/DL (0.60-1.10); GLUCOSE 97 MG/DL (70-104); POTASSIUM 4.2 MMOL/L (3.5-5.1); SODIUM 136 MMOL/L (135-145); TOTAL CARBON DIOXIDE 26.3 MMOL/L (24-32); TOTAL PROTEIN 6.7 G/DL (6.4-8.2); eGFR 49 ML/MIN
[2020-12-20 07:30] VITALS: BP 165/111
[2020-12-20] MEDS: tamsulosin 0.4mg capsule PO SCH (07:43)
[2020-12-20] MEDS: multivitamins, therapeutics tablet PO SCH (07:44)
[2020-12-20] MEDS: ciprofloxacin 250mg tablet PO SCH ×2 (07:44→19:39)
[2020-12-20] MEDS: folic acid 1mg tablet PO SCH (07:44)
[2020-12-20] MEDS: amLODIPine 5mg tablet PO SCH (07:45)
[2020-12-20] MEDS: enoxaparin 40mg/0.4ml syringe SUBCUT SCH (07:49)
[2020-12-20 08:00] VITALS: BP 165/111
[2020-12-20] MEDS ORDERED: folic acid inj. 2 MG, thiamine inj. 100 MG, MVI, adult No.4 with vit. K 10 ML in dextro... IV SCH ×4 (08:00)
[2020-12-20] MEDS ORDERED: metoprolol tartrate 50mg tablet PO SCH (08:00)
[2020-12-20] MEDS ORDERED: atenolol 50mg tablet PO SCH (08:00)
[2020-12-20] MEDS: thiamine 100mg tablet PO SCH (09:44)
[2020-12-20] MEDS: metoprolol tartrate 25mg tablet PO SCH ×2 (09:44→19:38)
[2020-12-20 11:48] VITALS: BP 174/103
[2020-12-20] MEDS: HYDROcodone/acetaminophen 10/325mg tab PO PRN ×2 (12:12→18:16)
[2020-12-20] MEDS: hydrALAZINE 20mg/ml inj. IV PRN (12:13)
--- NOTE | 2020-12-20 18:09 | NUR ---
Problems reprioritized. Patient report given, questions answered & plan of care reviewed with ENEDINA COLEMAN.
[2020-12-20] MEDS: lactobacillus rhamnosus 10,000 MMU CELLS/CAPSULE PO SCH (19:38)
[2020-12-20 19:43] VITALS: BP 153/103
[2020-12-21 00:35] VITALS: BP 148/100
[2020-12-21] MEDS: HYDROcodone/acetaminophen 10/325mg tab PO PRN ×3 (04:36→20:54)
[2020-12-21] MEDS: magnesium hydroxide 30ml (MOM) UD suspension PO PRN (04:57)
--- NOTE | 2020-12-21 06:20 | NUR ---
Patient in room CLIFF 352. I have received report from radha MCCONNELL and had the opportunity to ask questions and assume patient care.
--- NOTE | 2020-12-21 06:39 | NUR ---
Problems reprioritized. Patient report given, questions answered & plan of care reviewed with LU. Addendum: 12/21/20 at 0639 by Jeremy Gould RN Amended: Links added.
--- NOTE | 2020-12-21 06:50 | NUR ---
Patient in room [facility] 352. I have received report from Santosh MCCONNELL and had the opportunity to ask questions and assume patient care.
[2020-12-21 07:00] VITALS: BP 153/92
[2020-12-21] MEDS: metoprolol tartrate 25mg tablet PO SCH ×2 (09:02→19:45)
[2020-12-21] MEDS: multivitamins, therapeutics tablet PO SCH (09:02)
[2020-12-21] MEDS: lactobacillus rhamnosus 10,000 MMU CELLS/CAPSULE PO SCH ×2 (09:02→19:44)
[2020-12-21] MEDS: ciprofloxacin 250mg tablet PO SCH ×2 (09:02→19:44)
[2020-12-21] MEDS: amLODIPine 5mg tablet PO SCH (09:03)
[2020-12-21] MEDS: folic acid 1mg tablet PO SCH (09:03)
[2020-12-21] MEDS: tamsulosin 0.4mg capsule PO SCH (09:04)
[2020-12-21] MEDS: enoxaparin 40mg/0.4ml syringe SUBCUT SCH (09:04)
[2020-12-21] MEDS: thiamine 100mg tablet PO SCH (09:05)
[2020-12-21 09:15] LABS: BASOPHILS % (AUTO) 0.6 % (0-1); EOSINOPHILS # (AUTO) 0.3 X10'3 (0-0.9); EOSINOPHILS % (AUTO) 4.7 % (0-6); HEMATOCRIT 39.4 % (42.0-52.0); HEMOGLOBIN 13.2 g/dl (14.0-17.9); LYMPHOCYTES # (AUTO) 0.8 X10'3 (1.1-4.8); LYMPHOCYTES % (AUTO) 13.5 % (21-51); MEAN CORPUSCULAR HEMOGLOBIN 30.7 PG (27.0-31.0); MEAN CORPUSCULAR HGB CONC 33.5 g/dL (33.0-36.5); MEAN CORPUSCULAR VOLUME 91.7 FL (78-98); MEAN PLATELET VOLUME 7.5 FL (7.4-10.4); MONOCYTES # (AUTO) 0.6 X10'3 (0-0.9); MONOCYTES % (AUTO) 10.1 % (2-12); NEUTROPHILS % (AUTO) 71.1 % (42-75); PLATELET COUNT 257 X10'3 (140-440); RED BLOOD COUNT 4.29 X10'6 (4.70-6.10); RED CELL DISTRIBUTION WIDTH 15.2 % (11.5-14.5); WHITE BLOOD COUNT 5.6 X10'3 (4.5-11.0)
[2020-12-21 09:32] LABS: ALANINE AMINOTRANSFERASE 55 U/L (12-78); ALBUMIN 2.7 G/DL (3.4-5.0); ALBUMIN/GLOBULIN RATIO 0.7 (1.1-1.5); ALKALINE PHOSPHATASE 68 IU/L (46-116); ANION GAP 3 (8-16); ASPARTATE AMINO TRANSFERASE 34 U/L (10-37); BILIRUBIN,TOTAL 0.4 MG/DL (0.1-1.0); BLOOD UREA NITROGEN 20 MG/DL (7-18); BUN/CREATININE RATIO 14.2 (5.4-32.0); CALCIUM 8.8 MG/DL (8.5-10.1); CHLORIDE 102 MMOL/L (99-107); CREATININE 1.41 MG/DL (0.60-1.10); GLUCOSE 163 MG/DL (70-104); POTASSIUM 3.9 MMOL/L (3.5-5.1); SODIUM 135 MMOL/L (135-145); TOTAL CARBON DIOXIDE 29.8 MMOL/L (24-32); TOTAL PROTEIN 6.7 G/DL (6.4-8.2); eGFR 51 ML/MIN
[2020-12-21] MEDS ORDERED: magnesium Cl slow-release 64mg tablet PO PRN (10:30)
[2020-12-21] MEDS ORDERED: potassium Cl 40MEQ/1/2NS 520ml 520 ML IV PRN (10:30)
[2020-12-21] MEDS ORDERED: magnesium 4gm in 100ml NS 100 ML IV PRN (10:30)
[2020-12-21] MEDS ORDERED: potassium Cl 20 mEq SR tablet PO PRN ×2 (10:30)
[2020-12-21 10:56] VITALS: BP 152/100
[2020-12-21 11:34] VITALS: BP 152/100
--- NOTE | 2020-12-21 11:48 | NUR ---
Fish 352- patient states his wheel chair is broke and can not be discharged until this is addressed per PT. Paged social sciences professor and case management.
[2020-12-21] MEDS: ipratropium/albuterol 3ml nebule NEB PRN ×2 (12:23→20:57)
--- NOTE | 2020-12-21 14:34 | NUR ---
Pt with a low Av of 12. Per physical assessment pt with no edema and an abrasion to left head/foot and bilat calves. Pt on a regular diet documented with 100% PO intake. No nutrition intervention warranted at this time. Will continue to follow. Addendum: 12/21/20 at [address] Amended: Links added.
[2020-12-21 18:00] VITALS: BP 145/82
--- NOTE | 2020-12-21 18:11 | NUR ---
Problems reprioritized. Patient report given, questions answered & plan of care reviewed with Santosh MCCONNELL.
[2020-12-21] MEDS: K and/or MAG REPLACEMENT MC SCH (19:47)
[2020-12-22] VITALS (9 sets, daily range): BP systolic 116–155; BP diastolic 75–101
[2020-12-22] MEDS: HYDROcodone/acetaminophen 10/325mg tab PO PRN ×2 (02:46→07:53)
--- NOTE | 2020-12-22 06:47 | NUR ---
Problems reprioritized. Patient report given, questions answered & plan of care reviewed with TIARA. Addendum: 12/22/20 at 0647 by Jeremy Gould RN Amended: Links added.
[2020-12-22 06:57] LABS: BASOPHILS % (AUTO) 0.5 % (0-1); EOSINOPHILS # (AUTO) 0.3 X10'3 (0-0.9); EOSINOPHILS % (AUTO) 4.5 % (0-6); HEMATOCRIT 37.9 % (42.0-52.0); HEMOGLOBIN 12.6 g/dl (14.0-17.9); LYMPHOCYTES # (AUTO) 1.1 X10'3 (1.1-4.8); LYMPHOCYTES % (AUTO) 19.3 % (21-51); MEAN CORPUSCULAR HEMOGLOBIN 30.7 PG (27.0-31.0); MEAN CORPUSCULAR HGB CONC 33.2 g/dL (33.0-36.5); MEAN CORPUSCULAR VOLUME 92.3 FL (78-98); MEAN PLATELET VOLUME 7.6 FL (7.4-10.4); MONOCYTES # (AUTO) 0.7 X10'3 (0-0.9); MONOCYTES % (AUTO) 12.4 % (2-12); NEUTROPHILS # (AUTO) 3.7 X10'3 (1.8-7.7); NEUTROPHILS % (AUTO) 63.3 % (42-75); PLATELET COUNT 246 X10'3 (140-440); RED BLOOD COUNT 4.11 X10'6 (4.70-6.10); RED CELL DISTRIBUTION WIDTH 15.4 % (11.5-14.5); WHITE BLOOD COUNT 5.9 X10'3 (4.5-11.0)
[2020-12-22 07:13] LABS: ALANINE AMINOTRANSFERASE 48 U/L (12-78); ALBUMIN 2.6 G/DL (3.4-5.0); ALBUMIN/GLOBULIN RATIO 0.7 (1.1-1.5); ALKALINE PHOSPHATASE 68 IU/L (46-116); ANION GAP 6 (8-16); ASPARTATE AMINO TRANSFERASE 27 U/L (10-37); BILIRUBIN,TOTAL 0.3 MG/DL (0.1-1.0); BLOOD UREA NITROGEN 22 MG/DL (7-18); BUN/CREATININE RATIO 15.1 (5.4-32.0); CALCIUM 8.7 MG/DL (8.5-10.1); CHLORIDE 104 MMOL/L (99-107); CREATININE 1.46 MG/DL (0.60-1.10); GLUCOSE 106 MG/DL (70-104); MAGNESIUM 2.2 MG/DL (1.5-2.4); PHOSPHORUS 3.9 MG/DL (2.3-4.5); POTASSIUM 4.2 MMOL/L (3.5-5.1); SODIUM 138 MMOL/L (135-145); TOTAL CARBON DIOXIDE 28.2 MMOL/L (24-32); TOTAL PROTEIN 6.4 G/DL (6.4-8.2); eGFR 49 ML/MIN
[2020-12-22] MEDS: thiamine 100mg tablet PO SCH (07:51)
[2020-12-22] MEDS: multivitamins, therapeutics tablet PO SCH (07:51)
[2020-12-22] MEDS: ciprofloxacin 250mg tablet PO SCH ×2 (07:51→19:55)
[2020-12-22] MEDS: folic acid 1mg tablet PO SCH (07:51)
[2020-12-22] MEDS: lactobacillus rhamnosus 10,000 MMU CELLS/CAPSULE PO SCH ×2 (07:51→19:55)
[2020-12-22] MEDS: amLODIPine 5mg tablet PO SCH (07:52)
[2020-12-22] MEDS: enoxaparin 40mg/0.4ml syringe SUBCUT SCH (07:52)
[2020-12-22] MEDS: tamsulosin 0.4mg capsule PO SCH (07:52)
[2020-12-22] MEDS: metoprolol tartrate 25mg tablet PO SCH ×2 (07:54→19:56)
[2020-12-22] MEDS: K and/or MAG REPLACEMENT MC SCH ×2 (08:00→20:00)
--- NOTE | 2020-12-22 08:05 | NUR ---
RESPIRATORY PAGED: GOOD MORNING. PLEASE TREAT PT. IN 352 -MIGUEL Whitten. MODERATE EXPIRATORY WHEEZING AND SOB NOTED.
[2020-12-22] MEDS: ipratropium/albuterol 3ml nebule NEB PRN (08:55)
[2020-12-22] MEDS: magnesium hydroxide 30ml (MOM) UD suspension PO PRN (13:27)
--- NOTE | 2020-12-22 18:40 | NUR ---
Gave report to Shivam MCCONNELL.
[2020-12-22] MEDS: morphine 2 MG/ML inj. syringe IV PRN (20:05)
--- NOTE | 2020-12-22 20:05 | NUR ---
RECEIVED PATIENT SITTING UP ON BED ALERT ORIENTED X3 FORGETFULL COMPLAIN OF LOWER BACK PAIN 7/10 MORPHINE 2MG IV GIVEN,WILL MONITORED.
--- NOTE | 2020-12-23 00:58 | NUR ---
PATIENT ASLEEP NO RESPIRATORY DISTRESS NOTED ROOM AIR SAT 94%.
[2020-12-23] MEDS: magnesium hydroxide 30ml (MOM) UD suspension PO PRN (02:55)
[2020-12-23 06:27] LABS: BASOPHILS # (AUTO) 0.1 X10'3 (0-0.2); BASOPHILS % (AUTO) 0.9 % (0-1); EOSINOPHILS # (AUTO) 0.2 X10'3 (0-0.9); EOSINOPHILS % (AUTO) 3.3 % (0-6); HEMOGLOBIN 12.9 g/dl (14.0-17.9); LYMPHOCYTES % (AUTO) 15.8 % (21-51); MEAN CORPUSCULAR HEMOGLOBIN 30.8 PG (27.0-31.0); MEAN CORPUSCULAR VOLUME 93.3 FL (78-98); MEAN PLATELET VOLUME 7.8 FL (7.4-10.4); MONOCYTES # (AUTO) 0.7 X10'3 (0-0.9); MONOCYTES % (AUTO) 10.4 % (2-12); NEUTROPHILS # (AUTO) 4.3 X10'3 (1.8-7.7); NEUTROPHILS % (AUTO) 69.6 % (42-75); PLATELET COUNT 250 X10'3 (140-440); RED BLOOD COUNT 4.18 X10'6 (4.70-6.10); RED CELL DISTRIBUTION WIDTH 15.4 % (11.5-14.5); WHITE BLOOD COUNT 6.2 X10'3 (4.5-11.0)
--- NOTE | 2020-12-23 06:46 | NUR ---
PAGED PT. Good morning. Please call surgical and ask for Wanda. Regarding patient in 352. Thank you.
[2020-12-23 06:51] LABS: ALANINE AMINOTRANSFERASE 41 U/L (12-78); ALBUMIN 2.7 G/DL (3.4-5.0); ALBUMIN/GLOBULIN RATIO 0.7 (1.1-1.5); ALKALINE PHOSPHATASE 68 IU/L (46-116); ANION GAP 5 (8-16); ASPARTATE AMINO TRANSFERASE 23 U/L (10-37); BILIRUBIN,TOTAL 0.3 MG/DL (0.1-1.0); BLOOD UREA NITROGEN 24 MG/DL (7-18); CHLORIDE 105 MMOL/L (99-107); GLUCOSE 98 MG/DL (70-104); MAGNESIUM 2.4 MG/DL (1.5-2.4); PHOSPHORUS 4.2 MG/DL (2.3-4.5); POTASSIUM 4.4 MMOL/L (3.5-5.1); SODIUM 140 MMOL/L (135-145); TOTAL CARBON DIOXIDE 29.8 MMOL/L (24-32); TOTAL PROTEIN 6.8 G/DL (6.4-8.2); eGFR 44 ML/MIN
[2020-12-23 07:00] VITALS: BP 165/99
--- NOTE | 2020-12-23 07:22 | NUR ---
PAGER ID: [phone] MESSAGE: Everette Whitten 352 Good morning! This pt. has not had a BM since 12/18 supposedly. Pt. states constipation. MOM x3 ineffective. Need order for suppository please. DBP running high in 90s-110s. SBP still elevated in 140s-160s. Wanda [phone]
[2020-12-23] MEDS: multivitamins, therapeutics tablet PO SCH (07:36)
[2020-12-23] MEDS: folic acid 1mg tablet PO SCH (07:36)
[2020-12-23] MEDS: tamsulosin 0.4mg capsule PO SCH (07:37)
[2020-12-23] MEDS: lactobacillus rhamnosus 10,000 MMU CELLS/CAPSULE PO SCH ×2 (07:37→19:40)
[2020-12-23] MEDS: ciprofloxacin 250mg tablet PO SCH ×2 (07:37→19:40)
[2020-12-23] MEDS: thiamine 100mg tablet PO SCH (07:37)
[2020-12-23] MEDS: amLODIPine 5mg tablet PO SCH (07:37)
[2020-12-23] MEDS: K and/or MAG REPLACEMENT MC SCH ×2 (07:38→19:39)
[2020-12-23] MEDS: metoprolol tartrate 25mg tablet PO SCH ×2 (07:38→19:43)
[2020-12-23] MEDS: HYDROcodone/acetaminophen 10/325mg tab PO PRN ×4 (07:39→23:36)
[2020-12-23] MEDS: enoxaparin 40mg/0.4ml syringe SUBCUT SCH (07:39)
[2020-12-23] MEDS: morphine 2 MG/ML inj. syringe IV PRN ×3 (10:29→20:59)
[2020-12-23 11:00] VITALS: BP 129/75
--- NOTE | 2020-12-23 14:04 | NUR ---
Initial: Pt presented to ER after mechanical fall and has a small contusion. Pt admitted for generalized weakness and UTI from recent admit. PO intake 100% on regular diet, pt is meeting nutrient needs. Last BM documented as 11/25, possible error may be 12/23. Pt has abrasion left head/foot, however no nutrient intervention warranted. Noted heavy alcohol use per ED note, pt is already receiving folic acid, thiamine and MVI. Will continue to follow. Recs: 1) Continue regular diet 2) Bowel care per Rx 3) Scaled wt per Rx Addendum: 12/23/20 at [address] Amended: Links added. Addendum: 12/23/20 at [address] RD agree with internal grinder set up operator note
--- NOTE | 2020-12-23 14:24 | NUR ---
Spoke to MD Malcolm while he was rounding on the floor. MD aware of trending hypertension and states he will " take a look at it".
[2020-12-23 18:00] VITALS: BP 144/66
--- NOTE | 2020-12-23 18:45 | NUR ---
Problems reprioritized. Patient report given, questions answered & plan of care reviewed with ENEDINA Vega.
--- NOTE | 2020-12-23 18:46 | NUR ---
Patient in room [facility] 352. I have received report from ENEDINA Muñoz and had the opportunity to ask questions and assume patient care.
--- NOTE | 2020-12-23 18:53 | NUR ---
Patient in room [facility]IFF 352. I have received report from Wanda MCCONNELL and had the opportunity to ask questions and assume patient care.
[2020-12-24] VITALS: BP 142/95
[2020-12-24] MEDS: morphine 2 MG/ML inj. syringe IV PRN (03:08)
[2020-12-24] MEDS: HYDROcodone/acetaminophen 10/325mg tab PO PRN ×3 (05:17→16:20)
--- NOTE | 2020-12-24 05:50 | NUR ---
Student documentation: I have reviewed and agree with all interventions, assessments performed and documented by Silvia MCCONNELL.
--- NOTE | 2020-12-24 06:31 | NUR ---
Problems reprioritized. Patient report given, questions answered & plan of care reviewed with ENEDINA Herrera.
--- NOTE | 2020-12-24 06:33 | NUR ---
Problems reprioritized. Patient report given, questions answered & plan of care reviewed with Sharon MCCONNELL and Stormy MCCONNELL.
[2020-12-24 06:35] LABS: BASOPHILS % (AUTO) 0.8 % (0-1); EOSINOPHILS # (AUTO) 0.2 X10'3 (0-0.9); EOSINOPHILS % (AUTO) 4.6 % (0-6); HEMATOCRIT 36.1 % (42.0-52.0); HEMOGLOBIN 11.9 g/dl (14.0-17.9); LYMPHOCYTES # (AUTO) 1.1 X10'3 (1.1-4.8); LYMPHOCYTES % (AUTO) 21.5 % (21-51); MEAN CORPUSCULAR HEMOGLOBIN 30.6 PG (27.0-31.0); MEAN CORPUSCULAR HGB CONC 32.9 g/dL (33.0-36.5); MEAN CORPUSCULAR VOLUME 93.1 FL (78-98); MEAN PLATELET VOLUME 7.6 FL (7.4-10.4); MONOCYTES # (AUTO) 0.7 X10'3 (0-0.9); MONOCYTES % (AUTO) 13.1 % (2-12); NEUTROPHILS # (AUTO) 3.2 X10'3 (1.8-7.7); PLATELET COUNT 229 X10'3 (140-440); RED BLOOD COUNT 3.88 X10'6 (4.70-6.10); RED CELL DISTRIBUTION WIDTH 15.6 % (11.5-14.5); WHITE BLOOD COUNT 5.3 X10'3 (4.5-11.0)
--- NOTE | 2020-12-24 06:43 | NUR ---
Patient in room [facility]IFF 352. I have received report from Silvia MCCONNELL and had the opportunity to ask questions and assume patient care.
[2020-12-24 07:00] VITALS: BP 148/95
[2020-12-24 07:03] LABS: ALANINE AMINOTRANSFERASE 37 U/L (12-78); ALBUMIN 2.6 G/DL (3.4-5.0); ALBUMIN/GLOBULIN RATIO 0.7 (1.1-1.5); ALKALINE PHOSPHATASE 65 IU/L (46-116); ANION GAP 7 (8-16); ASPARTATE AMINO TRANSFERASE 19 U/L (10-37); BILIRUBIN,TOTAL 0.3 MG/DL (0.1-1.0); BLOOD UREA NITROGEN 26 MG/DL (7-18); BUN/CREATININE RATIO 14.8 (5.4-32.0); CALCIUM 8.6 MG/DL (8.5-10.1); CHLORIDE 101 MMOL/L (99-107); CREATININE 1.76 MG/DL (0.60-1.10); GLUCOSE 95 MG/DL (70-104); MAGNESIUM 2.4 MG/DL (1.5-2.4); PHOSPHORUS 4.6 MG/DL (2.3-4.5); POTASSIUM 4.4 MMOL/L (3.5-5.1); SODIUM 137 MMOL/L (135-145); TOTAL CARBON DIOXIDE 28.8 MMOL/L (24-32); TOTAL PROTEIN 6.4 G/DL (6.4-8.2); eGFR 39 ML/MIN
[2020-12-24] MEDS: K and/or MAG REPLACEMENT MC SCH ×2 (07:37→20:31)
[2020-12-24] MEDS: amLODIPine 5mg tablet PO SCH (07:38)
[2020-12-24] MEDS: enoxaparin 40mg/0.4ml syringe SUBCUT SCH (07:38)
[2020-12-24] MEDS: metoprolol tartrate 25mg tablet PO SCH ×2 (07:39→20:35)
[2020-12-24] MEDS: multivitamins, therapeutics tablet PO SCH (07:39)
[2020-12-24] MEDS: lactobacillus rhamnosus 10,000 MMU CELLS/CAPSULE PO SCH ×2 (07:39→20:35)
[2020-12-24] MEDS: folic acid 1mg tablet PO SCH (07:39)
[2020-12-24] MEDS: tamsulosin 0.4mg capsule PO SCH (07:39)
[2020-12-24] MEDS: thiamine 100mg tablet PO SCH (07:39)
[2020-12-24] MEDS: ciprofloxacin 250mg tablet PO SCH ×2 (07:39→20:35)
[2020-12-24 11:00] VITALS: BP 135/83
--- NOTE | 2020-12-24 12:20 | NUR ---
Silvia from [facility] is working with this patient and talked with the patient.
[2020-12-24 18:00] VITALS: BP 139/91
--- NOTE | 2020-12-24 18:43 | NUR ---
Problems reprioritized. Patient report given, questions answered & plan of care reviewed with Owen MCCONNELL.
[2020-12-25] VITALS: BP 141/88
[2020-12-25] MEDS: HYDROcodone/acetaminophen 10/325mg tab PO PRN ×4 (04:05→21:54)
--- NOTE | 2020-12-25 06:25 | NUR ---
Patient in room CLIFF 352. I have received report from ENEDINA Weaver and had the opportunity to ask questions and assume patient care.
[2020-12-25 06:30] VITALS: BP 155/100
[2020-12-25] MEDS: ipratropium/albuterol 3ml nebule NEB PRN (09:19)
[2020-12-25 09:45] LABS: ALBUMIN 2.6 G/DL (3.4-5.0); ANION GAP 8 (8-16); BLOOD UREA NITROGEN 23 MG/DL (7-18); BUN/CREATININE RATIO 12.8 (5.4-32.0); CALCIUM 8.9 MG/DL (8.5-10.1); CHLORIDE 102 MMOL/L (99-107); GLUCOSE 114 MG/DL (70-104); MAGNESIUM 2.3 MG/DL (1.5-2.4); PHOSPHORUS 3.3 MG/DL (2.3-4.5); POTASSIUM 4.1 MMOL/L (3.5-5.1); SODIUM 139 MMOL/L (135-145); eGFR 38 ML/MIN
[2020-12-25] MEDS: ciprofloxacin 250mg tablet PO SCH ×2 (09:54→19:54)
[2020-12-25] MEDS: enoxaparin 40mg/0.4ml syringe SUBCUT SCH (09:54)
[2020-12-25] MEDS: multivitamins, therapeutics tablet PO SCH (09:55)
[2020-12-25] MEDS: thiamine 100mg tablet PO SCH (09:55)
[2020-12-25] MEDS: lactobacillus rhamnosus 10,000 MMU CELLS/CAPSULE PO SCH ×2 (09:55→19:54)
[2020-12-25] MEDS: folic acid 1mg tablet PO SCH (09:55)
[2020-12-25] MEDS: amLODIPine 5mg tablet PO SCH (09:55)
[2020-12-25] MEDS: metoprolol tartrate 25mg tablet PO SCH ×2 (09:56→19:55)
[2020-12-25] MEDS: tamsulosin 0.4mg capsule PO SCH (09:56)
[2020-12-25] MEDS: K and/or MAG REPLACEMENT MC SCH ×2 (10:45→20:00)
[2020-12-25 11:00] VITALS: BP 150/90
--- NOTE | 2020-12-25 18:15 | NUR ---
Problems reprioritized. Patient report given, questions answered & plan of care reviewed with ENEDINA Maddox.
[2020-12-25 19:00] VITALS: BP 138/74
--- NOTE | 2020-12-25 20:10 | NUR ---
Patient in room CLIFF 352. I have received report from Cathy MCCONNELL and had the opportunity to ask questions and assume patient care.
--- NOTE | 2020-12-25 20:30 | NUR ---
educated pt about needing to get a PRV two times during my shift. asked pt to push his call light after his next void. pt stated that he understood. will continue to monitor.
[2020-12-26] VITALS: BP 137/94
[2020-12-26] MEDS: HYDROcodone/acetaminophen 10/325mg tab PO PRN ×4 (03:40→17:51)
--- NOTE | 2020-12-26 06:15 | NUR ---
Patient in room CLIFF 352. I have received report from ENEDINA Maddox and had the opportunity to ask questions and assume patient care.
--- NOTE | 2020-12-26 06:17 | NUR ---
Problems reprioritized. Patient report given, questions answered & plan of care reviewed with Cathy RN.
--- NOTE | 2020-12-26 06:25 | NUR ---
Problems reprioritized. Patient report given, questions answered & plan of care reviewed with ENEDINA Bowling.
[2020-12-26 06:35] LABS: MAGNESIUM 2.2 MG/DL (1.5-2.4); PHOSPHORUS 3.6 MG/DL (2.3-4.5)
[2020-12-26 07:00] VITALS: BP 136/77
[2020-12-26] MEDS: K and/or MAG REPLACEMENT MC SCH ×2 (07:12→18:57)
[2020-12-26] MEDS: lactobacillus rhamnosus 10,000 MMU CELLS/CAPSULE PO SCH ×2 (07:51→19:34)
[2020-12-26] MEDS: folic acid 1mg tablet PO SCH (07:51)
[2020-12-26] MEDS: enoxaparin 40mg/0.4ml syringe SUBCUT SCH (07:51)
[2020-12-26] MEDS: multivitamins, therapeutics tablet PO SCH (07:51)
[2020-12-26] MEDS: metoprolol tartrate 25mg tablet PO SCH ×2 (07:51→19:34)
[2020-12-26] MEDS: tamsulosin 0.4mg capsule PO SCH (07:51)
[2020-12-26] MEDS: thiamine 100mg tablet PO SCH (07:52)
[2020-12-26] MEDS: ciprofloxacin 250mg tablet PO SCH ×2 (07:52→19:34)
[2020-12-26] MEDS: amLODIPine 5mg tablet PO SCH (07:52)
[2020-12-26 11:00] VITALS: BP 145/70
--- NOTE | 2020-12-26 18:34 | NUR ---
Patient in room CLIFF 352a. I have received report from ENEDINA Bowling and had the opportunity to ask questions and assume patient care.
[2020-12-26 19:43] VITALS: BP 138/98
[2020-12-27] VITALS: BP 138/98
--- NOTE | 2020-12-27 06:13 | NUR ---
Problems reprioritized. Patient report given, questions answered & plan of care reviewed with ENEDINA Tay and Ry Student Nurse.
--- NOTE | 2020-12-27 06:30 | NUR ---
Patient in room CLIFF 352. I have received report from Aniya MCCONNELL and had the opportunity to ask questions and assume patient care.
[2020-12-27 07:30] VITALS: BP 145/89
[2020-12-27] MEDS: K and/or MAG REPLACEMENT MC SCH ×2 (08:00→19:25)
[2020-12-27 08:12] VITALS: BP 182/94
[2020-12-27] MEDS: thiamine 100mg tablet PO SCH (08:39)
[2020-12-27] MEDS: lactobacillus rhamnosus 10,000 MMU CELLS/CAPSULE PO SCH ×2 (08:40→19:46)
[2020-12-27] MEDS: tamsulosin 0.4mg capsule PO SCH (08:40)
[2020-12-27] MEDS: folic acid 1mg tablet PO SCH (08:40)
[2020-12-27] MEDS: metoprolol tartrate 25mg tablet PO SCH ×2 (08:41→19:47)
[2020-12-27] MEDS: amLODIPine 5mg tablet PO SCH (08:42)
[2020-12-27] MEDS: multivitamins, therapeutics tablet PO SCH (08:42)
[2020-12-27] MEDS: enoxaparin 40mg/0.4ml syringe SUBCUT SCH (08:43)
[2020-12-27] MEDS: HYDROcodone/acetaminophen 10/325mg tab PO PRN ×3 (08:48→21:37)
[2020-12-27 11:00] VITALS: BP 142/92
[2020-12-27] MEDS: ipratropium/albuterol 3ml nebule NEB PRN (15:40)
[2020-12-27 18:00] VITALS: BP 135/83
--- NOTE | 2020-12-27 18:15 | NUR ---
Patient in room CLIFF 352. I have received report from ENEDINA Tay and had the opportunity to ask questions and assume patient care.
--- NOTE | 2020-12-27 18:34 | NUR ---
Problems reprioritized. Patient report given, questions answered & plan of care reviewed with tacho reno.
--- NOTE | 2020-12-27 23:25 | NUR ---
Problems reprioritized. Patient report given, questions answered & plan of care reviewed with ENEDINA Back.
--- NOTE | 2020-12-27 23:28 | NUR ---
Patient in room CLIFF 352. I have received report from Aniya MCCONNELL and had the opportunity to ask questions and assume patient care.
[2020-12-27 23:55] VITALS: BP 144/86
--- NOTE | 2020-12-28 06:10 | NUR ---
Problems reprioritized. Patient report given, questions answered & plan of care reviewed with Gita MCCONNELL.
--- NOTE | 2020-12-28 06:18 | NUR ---
Patient in room CLIFF 352. I have received report from Nazanin MCCONNELL and had the opportunity to ask questions and assume patient care.
[2020-12-28] MEDS: HYDROcodone/acetaminophen 10/325mg tab PO PRN ×4 (06:54→22:46)
[2020-12-28 07:00] VITALS: BP 147/89
[2020-12-28] MEDS: K and/or MAG REPLACEMENT MC SCH ×2 (08:00→20:00)
[2020-12-28] MEDS: lactobacillus rhamnosus 10,000 MMU CELLS/CAPSULE PO SCH ×2 (09:07→20:02)
[2020-12-28] MEDS: amLODIPine 5mg tablet PO SCH (09:07)
[2020-12-28] MEDS: tamsulosin 0.4mg capsule PO SCH (09:07)
[2020-12-28] MEDS: thiamine 100mg tablet PO SCH (09:07)
[2020-12-28] MEDS: multivitamins, therapeutics tablet PO SCH (09:07)
[2020-12-28] MEDS: folic acid 1mg tablet PO SCH (09:08)
[2020-12-28] MEDS: metoprolol tartrate 25mg tablet PO SCH ×2 (09:08→20:01)
[2020-12-28] MEDS: enoxaparin 40mg/0.4ml syringe SUBCUT SCH (09:09)
[2020-12-28] MEDS: ipratropium/albuterol 3ml nebule NEB PRN ×2 (09:20→19:31)
--- NOTE | 2020-12-28 09:47 | NUR ---
Patient had a bladder scan volume of 629ml, patient trying to urinate into the urinal. He requested to give him some time to pee. Patient aware that if she still cannot urinate or urinated but not very much, he will likely need straight cath. Charge nurse Madhuri aware of this.
--- NOTE | 2020-12-28 10:19 | NUR ---
Patient attempted to urinate with no success. Straight cath patient's bladder and obtained 700 ml of yellow urine, tolerated procedure well.
[2020-12-28 11:00] VITALS: BP 149/92
[2020-12-28] MEDS: magnesium hydroxide 30ml (MOM) UD suspension PO PRN (12:54)
--- NOTE | 2020-12-28 16:44 | NUR ---
Patient still has his EBT card with him inside the envelope he is holding. I had called ER admitting to have someone come and place this valuable to safe as per patient's request. Patient has prescription medicine for Flomax and Ciprofloxacin that was stored in our hospital pharmacy.
--- NOTE | 2020-12-28 18:24 | NUR ---
Problems reprioritized. Patient report given, questions answered & plan of care reviewed with Sofia MCCONNELL.
--- NOTE | 2020-12-28 18:30 | NUR ---
Patient in room CLIFF 352. I have received report from CALVIN MCCONNELL and had the opportunity to ask questions and assume patient care.
[2020-12-28 20:00] VITALS: BP 138/97
[2020-12-29] VITALS: BP 122/84
[2020-12-29] MEDS: HYDROcodone/acetaminophen 10/325mg tab PO PRN ×5 (03:31→20:56)
--- NOTE | 2020-12-29 06:29 | NUR ---
Problems reprioritized. Patient report given, questions answered & plan of care reviewed with BALAJI MCCONNELL.
--- NOTE | 2020-12-29 06:45 | NUR ---
Patient in room CLIFF 352. I have received report from SONIYA BYRNES RN and had the opportunity to ask questions and assume patient care.
[2020-12-29 07:00] VITALS: BP 119/67
[2020-12-29] MEDS: lactobacillus rhamnosus 10,000 MMU CELLS/CAPSULE PO SCH ×2 (07:56→19:33)
[2020-12-29] MEDS: tamsulosin 0.4mg capsule PO SCH (07:56)
[2020-12-29] MEDS: amLODIPine 5mg tablet PO SCH (07:56)
[2020-12-29] MEDS: thiamine 100mg tablet PO SCH (07:57)
[2020-12-29] MEDS: multivitamins, therapeutics tablet PO SCH (07:57)
[2020-12-29] MEDS: folic acid 1mg tablet PO SCH (07:57)
[2020-12-29] MEDS: K and/or MAG REPLACEMENT MC SCH ×2 (08:00→19:40)
[2020-12-29] MEDS: enoxaparin 40mg/0.4ml syringe SUBCUT SCH (08:00)
[2020-12-29] MEDS: metoprolol tartrate 25mg tablet PO SCH ×2 (08:07→19:39)
--- NOTE | 2020-12-29 08:18 | NUR ---
Pt reports loss of sensation in R foot secondary to a stroke last year, 2/5 Muscle strength in R arm with weakness in left left and left side. Addendum: 12/29/20 at 0837 by Raciel HAWKINS Amended: Links added.
--- NOTE | 2020-12-29 08:30 | NUR ---
Pt reports LBM was on 12/27/2020, says it was normal but he is struggling going to the bathroom. Addendum: 12/29/20 at 0837 by Raciel HAWKINS Amended: Links added.
[2020-12-29] MEDS: magnesium hydroxide 30ml (MOM) UD suspension PO PRN (08:43)
--- NOTE | 2020-12-29 09:45 | NUR ---
Fu: PO intake 100% on regular diet, pt is meeting nutrient needs. Last BM 12/27, receiving MoM prn. No nutrition interventions warranted at this time. Will continue to monitor. Recs: 1) Continue regular diet 2) Routine bowel care 3) Scaled wt per Rx Addendum: 12/29/20 at [address] Amended: Links added. Addendum: 12/29/20 at [address] I have reviewed and agree with note by Inspector And Clipper. Sherley Grant RD
[2020-12-29 11:41] VITALS: BP 119/78
[2020-12-29 18:00] VITALS: BP 135/81
--- NOTE | 2020-12-29 18:45 | NUR ---
Patient in room CLIFF 352. I have received report from ENEDINA Álvarez and had the opportunity to ask questions and assume patient care.
--- NOTE | 2020-12-29 18:51 | NUR ---
Problems reprioritized. Patient report given, questions answered & plan of care reviewed with ENEDINA ALAS.
[2020-12-30] VITALS: BP 111/62
[2020-12-30] MEDS: HYDROcodone/acetaminophen 10/325mg tab PO PRN ×4 (01:27→20:45)
--- NOTE | 2020-12-30 06:44 | NUR ---
Problems reprioritized. Patient report given, questions answered & plan of care reviewed with ENEDINA Muñoz.
[2020-12-30 07:00] VITALS: BP 136/85
[2020-12-30] MEDS: K and/or MAG REPLACEMENT MC SCH ×2 (08:00→20:00)
[2020-12-30] MEDS: ipratropium/albuterol 3ml nebule NEB PRN (08:00)
[2020-12-30] MEDS: lactobacillus rhamnosus 10,000 MMU CELLS/CAPSULE PO SCH ×2 (08:15→20:45)
[2020-12-30] MEDS: multivitamins, therapeutics tablet PO SCH (08:15)
[2020-12-30] MEDS: folic acid 1mg tablet PO SCH (08:15)
[2020-12-30] MEDS: thiamine 100mg tablet PO SCH (08:16)
[2020-12-30] MEDS: metoprolol tartrate 25mg tablet PO SCH ×2 (08:16→20:46)
[2020-12-30] MEDS: amLODIPine 5mg tablet PO SCH (08:16)
[2020-12-30] MEDS: tamsulosin 0.4mg capsule PO SCH (08:16)
[2020-12-30] MEDS: enoxaparin 40mg/0.4ml syringe SUBCUT SCH (08:17)
[2020-12-30 09:57] LABS: HEMOGLOBIN 11.8 g/dl (14.0-17.9)
[2020-12-30 09:59] VITALS: BP 166/105
[2020-12-30 10:00] LABS: BASOPHILS % (AUTO) 0.9 % (0-1); EOSINOPHILS # (AUTO) 0.1 X10'3 (0-0.9); EOSINOPHILS % (AUTO) 3.1 % (0-6); LYMPHOCYTES # (AUTO) 0.8 X10'3 (1.1-4.8); LYMPHOCYTES % (AUTO) 19.3 % (21-51); MEAN CORPUSCULAR HEMOGLOBIN 30.2 PG (27.0-31.0); MEAN CORPUSCULAR HGB CONC 32.9 g/dL (33.0-36.5); MEAN CORPUSCULAR VOLUME 91.8 FL (78-98); MEAN PLATELET VOLUME 8.1 FL (7.4-10.4); MONOCYTES # (AUTO) 0.6 X10'3 (0-0.9); MONOCYTES % (AUTO) 14.8 % (2-12); NEUTROPHILS # (AUTO) 2.7 X10'3 (1.8-7.7); NEUTROPHILS % (AUTO) 61.9 % (42-75); PLATELET COUNT 214 X10'3 (140-440); RED BLOOD COUNT 3.92 X10'6 (4.70-6.10); RED CELL DISTRIBUTION WIDTH 14.8 % (11.5-14.5); WHITE BLOOD COUNT 4.3 X10'3 (4.5-11.0)
[2020-12-30 10:40] LABS: ALANINE AMINOTRANSFERASE 29 U/L (12-78); ALBUMIN 2.9 G/DL (3.4-5.0); ALBUMIN/GLOBULIN RATIO 0.7 (1.1-1.5); ALKALINE PHOSPHATASE 56 IU/L (46-116); ANION GAP 6 (8-16); ASPARTATE AMINO TRANSFERASE 28 U/L (10-37); BILIRUBIN,TOTAL 0.2 MG/DL (0.1-1.0); BLOOD UREA NITROGEN 21 MG/DL (7-18); CALCIUM 8.8 MG/DL (8.5-10.1); CHLORIDE 100 MMOL/L (99-107); GLUCOSE 115 MG/DL (70-104); POTASSIUM 4.8 MMOL/L (3.5-5.1); SODIUM 136 MMOL/L (135-145); TOTAL CARBON DIOXIDE 30.1 MMOL/L (24-32); TOTAL PROTEIN 6.9 G/DL (6.4-8.2); eGFR 51 ML/MIN
[2020-12-30 11:00] VITALS: BP 136/77
[2020-12-30 18:00] VITALS: BP 114/91
--- NOTE | 2020-12-30 18:10 | NUR ---
Gave report to ENEDINA Lazo.
--- NOTE | 2020-12-30 19:02 | NUR ---
Patient in room CLIFF 352. I have received report from TIARA MCCONNELL and had the opportunity to ask questions and assume patient care.
[2020-12-31] VITALS: BP 138/71
[2020-12-31] MEDS: HYDROcodone/acetaminophen 10/325mg tab PO PRN (04:51)
--- NOTE | 2020-12-31 06:29 | NUR ---
Problems reprioritized. Patient report given, questions answered & plan of care reviewed with BRI MCCONNELL.
--- NOTE | 2020-12-31 07:06 | NUR ---
Patient in room CLIFF 352. I have received report from ENEDINA Lazo and had the opportunity to ask questions and assume patient care.
[2020-12-31 08:00] VITALS: BP 141/86
[2020-12-31] MEDS: tamsulosin 0.4mg capsule PO SCH (08:23)
[2020-12-31] MEDS: thiamine 100mg tablet PO SCH (08:23)
[2020-12-31] MEDS: multivitamins, therapeutics tablet PO SCH (08:23)
[2020-12-31] MEDS: folic acid 1mg tablet PO SCH (08:23)
[2020-12-31 08:24] VITALS: BP_SYST 141
[2020-12-31] MEDS: amLODIPine 5mg tablet PO SCH (08:24)
[2020-12-31] MEDS: lactobacillus rhamnosus 10,000 MMU CELLS/CAPSULE PO SCH (08:24)
[2020-12-31] MEDS: metoprolol tartrate 25mg tablet PO SCH (08:24)
[2020-12-31] MEDS: enoxaparin 40mg/0.4ml syringe SUBCUT SCH (08:27)
--- NOTE | 2020-12-31 09:22 | NUR ---
Pt discharged to [facility] in stable condition. Left the hospital on motorized W/C with [place] transport for transfer. pt's belonging sent with pt.
--- NOTE | 2020-12-31 14:40 | NUR ---
Report given to Gita SANTIAGO at [facility].
== END 2020-12-31 09:16 | DRG 463 ==
LOC: ER 12:03 → OBSVTOIN 15:02 → ED HOLD 15:02 → SUR 3N 15:36
PROVIDERS: ADMIT Internal Medicine; ATTEND Internal Medicine
DX: N39.0 Urinary tract infection, site not specified (principal); F12.90 Cannabis use, unspecified, uncomplicated; I12.9 Hypertensive chronic kidney disease with stage 1 through stage 4 chronic kidney disease, or unspecified chronic kidney disease; I69.351 Hemiplegia and hemiparesis following cerebral infarction affecting right dominant side; N18.30 Chronic kidney disease, stage 3 unspecified; R29.6 Repeated falls; W18.39XA Other fall on same level, initial encounter; R62.7 Adult failure to thrive; F17.210 Nicotine dependence, cigarettes, uncomplicated; G89.29 Other chronic pain; F10.129 Alcohol abuse with intoxication, unspecified; M10.9 Gout, unspecified; R33.9 Retention of urine, unspecified; M79.602 Pain in left arm; Z59.0 Homelessness; Y93.89 Activity, other specified; Y92.89 Other specified places as the place of occurrence of the external cause; Y99.8 Other external cause status; Z68.31 Body mass index [BMI] 31.0-31.9, adult; Z88.8 Allergy status to other drugs, medicaments and biological substances; Z79.899 Other long term (current) drug therapy
CPT/HCPCS: 36415; 71045; 73030; 80048; 80053; 80320; 81001; 82550; 83605; 83735; 83880; 84100; 84145; 85025; 87040; 87081; 87088; 93005; 94640; 94760; 97110; 97162; 97530; 99285; G0378; J0360; J1650; J2270; J3411